=== PATIENT | female | born 1950 | race Caucasian/White ===

== ENCOUNTER 2020-03-08 09:22 | Outpatient (CLI) | payer MEDICARE, OTHER, SELFPAY ==
--- NOTE | ~2020-03-08 | US_ITS ---
EXAMINATION: US thyroid DATE: 03/08/2020 12:29 INDICATION: Nontoxic single thyroid nodule. TECHNIQUE: Multiple ultrasound images of the thyroid were obtained. COMPARISON: Ultrasound 06/22/2019 FINDINGS: The right thyroid lobe measures 4.7 x 1.9 x 1.8 cm. The left thyroid lobe measures 4.4 x 1.9 x 1.7 c m. In the right thyroid lobe, there is a 10 mm solid, hypoechoic, lovem-buet-bprk nodule with lobula josé miguel margin without echogenic foci (TI-RADS TR4) status post benign biopsy on 07/26/2019. In the right thyroid lobe, there is an 8 mm mixed solid and cystic, hypoechoic, zsoym-viju-ndvl nodule with lobul ated margin without echogenic foci (TR4). In the right thyroid lobe, there is a 6 mm mixed cystic and solid, hypoechoic, ntbej-opnw-bxws nodule with lobulated margin with marginal echogenic focus (TR4). There are multiple nodules in the thyroid measuring less than 5 mm. In the right thyroid lobe, there is a 7 mm solid, hypoechoic, fgjio-ufgo-mruy nodule with lobulated margin without echogenic foci (TR 4). IMPRESSION: 1. Small thyroid nodules, likely not clinically significant. No follow-up is needed. Reviewed, dictated and finalized at location A. IMPRESSION: 1. Small thyroid nodules, likely not clinically significant. No follow-up is ne eded.
[2020-03-08 10:33] LABS: Free T4 Free Thyroxine 0.96 ng/dL (0.76-1.46); Thyroid Stimulating Hormone 0.54 uIU/mL (0.36-3.74)
== END 2020-03-08 09:23 | disposition home or self-care (01) ==
LOC: CHSIMG 09:27
PROVIDERS: PCP Internal Medicine; Visit Provider Internal Medicine Endocrinology, Diabetes & Metabolism
DX: E04.1 Nontoxic single thyroid nodule (principal)
CPT/HCPCS: 36415; 76536; 84439; 84443

== ENCOUNTER 2020-04-25 09:52 | Outpatient (CLI) | payer MEDICARE, OTHER, SELFPAY ==
--- NOTE | ~2020-04-25 | US_ITS ---
EXAMINATION: US soft tissue upper back INDICATION: [place] hump TECHNIQUE: Targeted high-resolution ultrasound was performed in the area of clinical concern. COMPARISON: None available FINDINGS: There is no cystic or solid mass in the area of clinical concern. Normal subcutaneous tissu es are identified. IMPRESSION: 1. No specific sonographic correlate is identified for the clinical finding of concern. Further evalu ation at this time should be based on clinical assessment. Continued follow-up physical examination i s recommended. Reviewed, dictated and finalized at location B. IMPRESSION: 1. No specific sonographic correlate is identified for the clinical finding of concern. Further evaluation at this time should be based on clinical assessment . Continued follow-up physical examination is recommended.
== END 2020-04-25 09:53 | disposition home or self-care (01) ==
LOC: CHSIMG 09:54
PROVIDERS: PCP Nurse Practitioner; Visit Provider Nurse Practitioner
DX: E65 Localized adiposity (principal)
CPT/HCPCS: 76604

== ENCOUNTER 2020-05-12 15:41 | Emergency (ER) | payer MEDICARE, OTHER, SELFPAY ==
[2020-05-12 15:41] VITALS: BP 146/87; PULSE 69; RESP 16; TEMP 36.1; O2SAT 97
--- NOTE | 2020-05-12 16:31 | ED.BACK ---
HPI - Back Pain/Injury General Chief Complaint: Back Pain/Injury Stated Complaint: back pain Source: patient Mode of arrival: ambulatory Limitations: no limitations History of Present Illness HPI Narrative: Right scapular pain, onset 3 days ago, mild, worse last night, much worse today; it's hard to get comfortable, having trouble resting. Placing her right hand behind her head decreases the pain. Sometimes, like in the E.D., she finds a comfortable spot and his minimal pain. She saw her chiropracter yesterday who provides some relief. She is taking a muscle relaxant given by the chiropracter. She took 1/2 [place] 7.5 earlier today without relief. She rarely takes [place]. Toradol IM usually helps a lot. She is very familiar with this pain: it has occurred periodically x years. Last occurred about 11 months ago. She has had it injected, seen pain clinic doctor, no etiology identified. She denies pain elsewhere. 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 Related Data Home Medications Medication Instructions Recorded Confirmed cholecalciferol (vitamin D3) 25 25 mcg PO DAILY 03/06/20 05/12/20 mcg (1,000 unit) capsule hydrocodone 5 mg-acetaminophen 300 1 tablet PO BID PRN 03/06/20 05/12/20 mg tablet potassium chloride 10 mEq 10 meq PO DAILY 03/06/20 05/12/20 tablet,extended release Allergies Allergy/AdvReac Type Severity Reaction Status Date / Time ciprofloxacin Allergy Unknown Dyspnea / Verified 12/20/17 07:15 SOB latex Allergy Unknown Verified 10/28/17 13:33 procaine Allergy Unknown Verified 10/28/17 13:32 Review of Systems Cardiovascular: Cardiovascular: Denies chest pain Respiratory: Respiratory: Denies cough and Denies dyspnea Gastrointestinal: Gastrointestinal: Denies abdominal pain, Denies nausea and Denies vomiting Neurologic: Comments: no numbness or weakness in right arm. [facility] Family History Family History (Updated 10/28/17 @ 13:40 by DOCTOR UNKNOWN) Other Cerebrovascular accident Family history of cardiovascular disease Family history of liver disease Family history of thyroid disease Exam Const: General: no acute distress Orientation/consciousness: patient oriented x3 Neck: Neck: normal visual inspection and no lymphadenopathy Other: full ROM nontender Chest: Chest palpation & inspection: normal inspection of the chest Resp: Effort & Inspection: normal respiratory effort Auscultation: clear to auscultation bilaterally Cardio: Rate: regular rate Rhythm: regular rhythm Heart sounds: no murmurs GI: Other: nontender Back/Spine/Pelvis: Thoracic/Lumbar Spine: thoracic and lumbar spine normal to inspection and other Other: Hypertrophy of right upper back muscles. No redness or swelling. Tender along lower medial border of the right scapula. Full shoulder ROM. Right hand behind head decreases pain. Course Vital Signs Vital signs: Vital Signs Temperature 36.1 C L 05/12/20 15:41 Pulse Rate 69 05/12/20 15:41 Respiratory Rate 16 05/12/20 15:41 Blood Pressure 146/87 H 05/12/20 15:41 Pulse Oximetry 97 05/12/20 15:41 Temperature 36.1 C L 05/12/20 15:41 Pulse Rate 69 05/12/20 15:41 Respiratory Rate 15 05/12/20 16:45 Blood Pressure 146/87 H 05/12/20 15:41 Pulse Oximetry 100 05/12/20 16:45 MDM - Back Pain/Injury MDM Narrative Medical decision making narrative: Recurrence of pain, etiology has never been determined. Appears to be soft tissue, possibly overuse injury ( no left arm) and spasm. Will tx. Recommend f/o with PCP. Discharge Plan Discharge Clinical Impression: Acute right-sided thoracic back pain Patient Disposition: Home, Self-Care Condition: Stable Instructions: Antibiotic Form, Back Pain (ED) Additional Instructions: Apply ice and/or heat every 2 hours. Avoid painful activities. See Kianna Wright tomorrow if no improvement. Return if worse Prescriptions: New cyclobenzaprin
[2020-05-12] MEDS: KETOROLAC (*BKC) 60 MG/2 ML VIAL 30 MG IM (16:44)
[2020-05-12 16:45] VITALS: RESP 15; O2SAT 100
== END 2020-05-12 16:48 | disposition home or self-care (01) ==
PROVIDERS: Emergency Provider Family Medicine; PCP Nurse Practitioner
DX: M54.6 Pain in thoracic spine (principal)
CPT/HCPCS: 96372; 99283; J1885

== ENCOUNTER 2020-07-17 07:54 | Outpatient (CLI) | payer MEDICARE, OTHER, SELFPAY ==
--- NOTE | ~2020-07-17 | CT_ITS ---
EXAMINATION:CT chest w con DATE: 07/17/2020 09:00 INDICATION: Lung nodule. Histoplasmosis. TECHNIQUE: Computed tomography (CT) of the chest was performed with 75 mL Omnipaque 350 intravenous c ontrast. Automated exposure control and iterative reconstruction technique were employed. The dose-le ngth product (DLP) was 424.03 mGy-cm. COMPARISON: Chest CT 04/03/2019 FINDINGS: There is mild scarring at the lung apices. There is mild atelectasis bilaterally. There is perihilar bronchiectasis in anterior segment right upper lobe. There is mild atelectasis in the infer ior lungs. Calcified bilateral lung nodules and calcified hilar and mediastinal lymph nodes are consi stent with old granulomatous disease. No pleural effusion. The heart size is normal. There is a small sliding hiatal hernia. There are changes of cholecystectomy. Calcifications in the spleen are consis tent with old granulomatous disease. There is mild thoracic spondylosis. IMPRESSION: 1. Stable mild scarring at the lung apices. 2. Mild bronchiectasis. 3. Small sliding hiatal hernia. Reviewed, dictated and finalized at location A.
--- NOTE | ~2020-07-17 | MR_ITS ---
EXAMINATION: MR lumbar spine wo con DATE: 07/17/2020 09:03 INDICATION: Syrinx of spinal cord. Muscle weakness of lower extremity. Low back pain. TECHNIQUE: Magnetic resonance imaging (MRI) of the lumbar spine was performed without intravenous con trast. Sequences included sagittal T2-weighted FSE, sagittal T2-weighted FS FSE, sagittal T1-weighted FSE, and axial T1-weighted FSE. COMPARISON: Lumbar spine MRI 10/05/2018 FINDINGS: There is 6 degrees levocurvature of lumbar spine. There is 3 mm anterolisthesis of L5 on S1 . There are Schmorl's nodes at most levels. There is severely decreased disc height from L3-L4 throug h L5-S1. The distal spinal cord signal intensity is normal. The conus medullaris is at L1. The follow ing disc levels are specifically discussed: L1-L2: The disc is mildly bulging. There is mild bilateral facet joint osteoarthritis. There is no ne ural foraminal stenosis. There is mild central canal stenosis. L2-L3: The disc is bulging. There is mild bilateral facet joint osteoarthritis. There is mild bilater al neural foraminal stenosis. There is mild central canal stenosis. L3-L4: The disc is bulging and has an annular fissure. There is mild bilateral facet joint osteoarthr itis. There is mild bilateral neural foraminal stenosis. There is mild central canal stenosis. L4-L5: The disc is bulging and has an annular fissure. There is moderate bilateral facet joint osteoa rthritis. There is mild bilateral neural foraminal stenosis. There is mild central canal stenosis. L5-S1: The disc is bulging and has an annular fissure. There is severe bilateral facet joint osteoart hritis. There is mild bilateral neural foraminal stenosis. There is mild central canal stenosis. IMPRESSION: 1. Severe lumbar spondylosis, stable from 10/05/2018. Reviewed, dictated and finalized at location A.
[2020-07-17 08:15] LABS: Estimated Glomerular Filt Rate > 60
== END 2020-07-17 07:55 | disposition home or self-care (01) ==
LOC: CHSIMG 07:58
PROVIDERS: PCP Internal Medicine
DX: Z86.19 Personal history of other infectious and parasitic diseases (principal); G95.0 Syringomyelia and syringobulbia; M62.81 Muscle weakness (generalized)
CPT/HCPCS: 71260; 72148; Q9965

== ENCOUNTER 2020-07-17 09:00 | Emergency (ER) | payer MEDICARE, OTHER, SELFPAY ==
[2020-07-17 09:15] VITALS: BP 154/84; PULSE 65; RESP 20; TEMP 36.9; O2SAT 98
--- NOTE | 2020-07-17 09:29 | ED.GENADULT ---
HPI - General Adult General Chief complaint: Extremity Injury, Upper Stated complaint: BACK PAIN Source: patient Mode of arrival: ambulatory History of Present Illness HPI narrative: Lilo presented to the ED with upper right back pain. It comes and goes and sometimes it gets very bad. Despite taking hydrocodone at home, and OTC muscle relaxant, and seeing her chiropractor the pain has become progressively worse for 3-4 days. No CP, SOB, N/V, syncope/near syncope. No recent trauma or falls. Related Data Home Medications Medication Instructions Recorded Confirmed cholecalciferol (vitamin D3) 25 25 mcg PO DAILY 03/06/20 07/17/20 mcg (1,000 unit) capsule hydrocodone 5 mg-acetaminophen 300 1 tablet PO BID PRN 03/06/20 07/17/20 mg tablet potassium chloride 10 mEq 10 meq PO DAILY 03/06/20 07/17/20 tablet,extended release Allergies Allergy/AdvReac Type Severity Reaction Status Date / Time ciprofloxacin Allergy Unknown Dyspnea / Verified 12/20/17 07:15 SOB latex Allergy Unknown Verified 10/28/17 13:33 procaine Allergy Unknown Verified 10/28/17 13:32 Review of Systems Constitutional: Constitutional: Reports no additional constitutional complaints Eyes: Eyes: Reports no additional eye complaints ENT: Reports system reviewed and no additional complaints, except as documented Cardiovascular: Cardiovascular: Reports no additional cardiovascular complaints Respiratory: Respiratory: Reports no additional respiratory complaints Gastrointestinal: Gastrointestinal: Reports no additional gastrointestinal complaints Genitourinary: Genitourinary: Reports no additional female genitourinary complaints Musculoskeletal: Musculoskeletal: Reports as per HPI Integumentary/Breasts: Skin/Breast: Reports system reviewed and no additional complaints, except as docu Neurologic: Reports system reviewed and no additional complaints, except as documented Psychiatric: Psychiatric: Reports no additional psychiatric complaints Endocrine: Endocrine: Reports no additional endocrine complaints Hematologic/Lymphatic: Hematologic/Lymphatic: Reports no additional hematologic/lymphatic complaints Allergic/Immunologic: Allergic/Immunologic: Reports no additional allergic/immunologic complaints [facility] Family History Family History Other Cerebrovascular accident Family history of cardiovascular disease Family history of liver disease Family history of thyroid disease Exam Const: General: no acute distress and alert Orientation/consciousness: patient oriented x3 Limitations: No altered mental status HENMT: Head: normal to inspection Other: atraumatic Eyes: Pupils: Equal, round and reactive pupils present Neck: Neck: normal visual inspection Resp: Effort & Inspection: normal respiratory effort, no retractions, not tachypneic and no use of accessory muscles Cardio: Rate: regular rate Back/Spine/Pelvis: Other: Upper left back was a little erythematous, swollen, warm and TTP between the scapula and the spine. Skin: General skin exam: normal color Rashes: no rashes Neuro: General: patient oriented x3 and moves all extremities Extrem: General: normal to inspection Psych: Mental Status: mental status grossly normal Course Course Emergency Course: Lilo was evaluated. We ordered toradol and flexeril for pain relief. She was able to get good relief with these. She was discharged with a script for flexeril and instructed to f/u with her PCP. Vital Signs Vital signs: Vital Signs Temperature 98.4 F 07/17/20 09:15 Pulse Rate 65 07/17/20 09:15 Respiratory Rate 20 07/17/20 09:15 Blood Pressure 154/84 H 07/17/20 09:15 Pulse Oximetry 98 07/17/20 09:15 Temperature 98.4 F 07/17/20 09:15 Pulse Rate 65 07/17/20 09:15 Respiratory Rate 20 07/17/20 09:15 Blood Pressure 154/84 H 07/17/20 09:15 Pulse Oximetry 98 07/17/20 09:15
[2020-07-17] MEDS: KETOROLAC (*BKC) 60 MG/2 ML VIAL 30 MG IM (09:42)
== END 2020-07-17 10:06 | disposition home or self-care (01) ==
PROVIDERS: Emergency Provider Family Medicine; PCP Internal Medicine
DX: S29.012A Strain of muscle and tendon of back wall of thorax, initial encounter (principal)
CPT/HCPCS: 71260; 72148; 96372; 99283; J1885; Q9965

== ENCOUNTER 2020-08-08 02:28 | Emergency (ER) | payer MEDICARE, OTHER, SELFPAY ==
[2020-08-08 02:33] VITALS: BP 120/88; PULSE 70; RESP 16; TEMP 36.6; O2SAT 98
[2020-08-08] MEDS: KETOROLAC (*BKC) 60 MG/2 ML VIAL IM (02:52)
[2020-08-08] MEDS: BACLOFEN 10 MG TABLET 20 MG PO (02:52)
--- NOTE | 2020-08-08 02:59 | ED.GENADULT ---
HPI - General Adult General Chief complaint: Unspecified Stated complaint: back pain Time Seen by Provider: 08/08/20 02:40 Source: patient Mode of arrival: ambulatory Limitations: no limitations History of Present Illness HPI narrative: Pain in right paraspinal muscles in thoracic spine and spasms. This has caused fairly severe pain that has been ongoing for the past few hours. It woke her up at midnight tonight in pain, sharp, stabbing related to spasms. This was not releived by measures taken at home. Related Data Home Medications Medication Instructions Recorded Confirmed cholecalciferol (vitamin D3) 25 25 mcg PO DAILY 03/06/20 08/08/20 mcg (1,000 unit) capsule hydrocodone 5 mg-acetaminophen 300 1 tablet PO BID PRN 03/06/20 08/08/20 mg tablet potassium chloride 10 mEq 10 meq PO DAILY 03/06/20 08/08/20 tablet,extended release Allergies Allergy/AdvReac Type Severity Reaction Status Date / Time ciprofloxacin Allergy Unknown Dyspnea / Verified 12/20/17 07:15 SOB latex Allergy Unknown Verified 10/28/17 13:33 procaine Allergy Unknown Verified 10/28/17 13:32 Review of Systems Constitutional: Constitutional: Reports no additional constitutional complaints Eyes: Eyes: Reports no additional eye complaints ENT: Reports system reviewed and no additional complaints, except as documented Cardiovascular: Cardiovascular: Reports no additional cardiovascular complaints Respiratory: Respiratory: Reports no additional respiratory complaints Gastrointestinal: Gastrointestinal: Reports no additional gastrointestinal complaints Genitourinary: Genitourinary: Reports no additional female genitourinary complaints Musculoskeletal: Musculoskeletal: Reports no additional musculoskeletal complaints Integumentary/Breasts: Skin/Breast: Reports system reviewed and no additional complaints, except as docu Neurologic: Reports system reviewed and no additional complaints, except as documented Psychiatric: Psychiatric: Reports no additional psychiatric complaints Endocrine: Endocrine: Reports no additional endocrine complaints Hematologic/Lymphatic: Hematologic/Lymphatic: Reports no additional hematologic/lymphatic complaints Allergic/Immunologic: Allergic/Immunologic: Reports no additional allergic/immunologic complaints PMFSH Family History Family History Other Cerebrovascular accident Family history of cardiovascular disease Family history of liver disease Family history of thyroid disease Exam Const: General: cooperative, in distress and anxious Nutritional Appearance: well nourished Orientation/consciousness: oriented to person Limitations: no limitations HENMT: Head: normal to inspection Ears: other (hearing grossly normal) General nose exam: Normal external nose present Face and sinus: normal facial exam Mouth: Yes Normal oral and palatal mucosa present Eyes: General: appearance normal, both eyes and all related structures Alignment and Position: alignment normal Conjunctivae: conjunctivae normal Neck: Neck: normal visual inspection Chest: Chest palpation & inspection: normal inspection of the chest Resp: Effort & Inspection: normal respiratory effort, able to speak in complete sentences and symmetric chest movement Auscultation: clear to auscultation bilaterally Cardio: Rate: regular rate Rhythm: regular rhythm Heart sounds: S1 normal heart sound present and S2 normal heart sound present GI: GI Palp: Yes Soft to palpation Auscultation: normal bowel sounds Back/Spine/Pelvis: Thoracic/Lumbar Spine: thoracic and lumbar spine normal to inspection Skin: General skin exam: normal color Trauma: no lacerations or abrasions Neuro: General: oriented to person, oriented to place and oriented to time Cranial nerves: Yes Other cranial nerve findings present (no focal weakness) Cognition (Neuro): normal cognition Speech: normal speech Extr
[2020-08-08 03:05] VITALS: BP 120/78; PULSE 72; RESP 18; TEMP 36.2; O2SAT 97
== END 2020-08-08 03:06 | disposition home or self-care (01) ==
PROVIDERS: Emergency Provider Emergency Medicine; PCP Internal Medicine
DX: M54.6 Pain in thoracic spine (principal)
CPT/HCPCS: 96372; 99283; A9270; J1885

== ENCOUNTER 2020-10-19 14:50 | Emergency (ER) | payer MEDICARE, SELFPAY ==
--- NOTE | ~2020-10-19 | CT_ITS ---
EXAMINATION: CT abdomen pelvis wo con EXAM DATE: 10/19/2020 16:17 INDICATION: Kidney stone. Left flank pain. TECHNIQUE: Spiral CT of the abdomen and pelvis was performed without contrast. Axial, coronal and sag ittal images were reviewed. The dose-length product (DLP) for this examination was 1155.01 mGy-cm. The exposure was tailored according to patient size (auto mA exposure control), and iterative reconst ruction (ASIR) was used as additional dose reduction technique. Comparison is made to prior examinati on from 01/26/2019. FINDINGS: There is a punctate kidney stone within each kidney. No ureteral stones or hydronephrosis. Fibroid uterus. The bladder is unremarkable. The liver, spleen, adrenal glands and pancreas are un remarkable. There are cholecystectomy clips. There is no retroperitoneal or pelvic lymphadenopathy. There is mild scattered arteriosclerotic disease. Small bilateral inguinal fat-containing hernias. The appendix is normal. The stomach and small bowel are unremarkable. There is expected amount of c olonic stool. No free intraperitoneal gas. The heart is normal in size. There are no pericardial or pleural effusions. The lung bases are unremarkable. There are no osteoblastic or osteolytic les ions identified. IMPRESSION: 1. Punctate bilateral nephrolithiasis. No hydronephrosis or acute findings. 2. Small bilateral inguinal hernias. Reviewed, dictated and finalized at location A. NDSMAN
[2020-10-19 15:15] VITALS: BP 163/99; PULSE 69; RESP 20; TEMP 36.3; O2SAT 98
[2020-10-19 15:37] LABS: Add Urine Microscopic? NO; Appearance Urine Clear (Clear); Bilirubin Urine Negative (Negative); Blood Urine Negative (Negative); Color Urine Yellow (Yellow); Glucose Urine UA Negative (Negative); Ketones Urine Negative (Negative); Leukocyte Esterase Ur Negative (Negative); Nitrate Urine Negative (Negative); Protein Urine Negative (Negative); Specific Grav Ur <= 1.005 (1.010-1.020); Urobilinogen Urine 0.2 mg/dL (0.2-1.0)
[2020-10-19] MEDS: KETOROLAC (*BKC) 60 MG/2 ML VIAL IM (16:00)
[2020-10-19] MEDS: ONDANSETRON HCL ODT 4 MG TABLET PO (16:00)
[2020-10-19 16:03] LABS: Basophils Absolute Auto 0.06 K/mm3 (0.00-0.10); Basophils Percent Auto 0.6 % (0.0-1.0); Eosinophils Absolute Auto 0.49 K/mm3 (0.02-0.50); Hematocrit 38.4 % (35.0-42.0); Immature Granulocyte Absolute 0.01 K/mm3 (0.00-0.00); Immature Granulocyte Percent A 0.1 % (0.0-0.0); Lymphocytes Absolute Auto 3.11 K/mm3 (1.10-4.50); Lymphocytes Percent Auto 31.8 % (18.0-42.0); Mean Corpuscular HGB Conc 33.9 g/dL (32.0-36.0); Mean Corpuscular Hemoglobin 30.7 pg (27.0-31.0); Mean Corpuscular Volume 90.6 fL (78.0-102.0); Mean Platelet Volume 10.2 fl (9.2-11.8); Monocytes Absolute Auto 0.71 K/mm3 (0.10-0.90); Monocytes Percent Auto 7.3 % (2.0-11.0); Neutrophils Absolute Auto 5.4 K/mm3 (1.7-7.2); Neutrophils Percent Auto 55.2 % (50.0-70.0); Platelet Count Result 394 K/mm3 (150-420); Red Blood Count 4.24 M/mm3 (4.20-5.40); Red Cell Distribution Width 12.5 % (11.6-14.4); White Blood Count 9.8 K/mm3 (4.8-10.8)
[2020-10-19 16:17] LABS: Alanine Aminotransferase 15 U/L (14-59); Albumin Level 3.6 g/dL (3.4-5.0); Alkaline Phosphatase 77 U/L (46-116); Anion Gap 12 mmol/L (8-16); Aspartate Amino Transferase 15 U/L (15-37); Bilirubin,Total 0.4 mg/dL (0.00-1.00); Blood Urea Nitrogen 8 mg/dL (7-18); Calcium 8.6 mg/dL (8.5-10.1); Carbon Dioxide 27 mmol/L (21-32); Chloride 103 mmol/L (98-108); Estimated CRCL calculation 54 ml/min; Estimated Glomerular Filt Rate > 60; Glucose 97 mg/dL (70-99); Osmolality Calculated 292 mOsm/kg (285-295); Potassium 3.3 mmol/L (3.5-5.1); Sodium 142 mmol/L (136-145); Total Protein 7.3 g/dL (6.4-8.2)
--- NOTE | 2020-10-19 16:52 | ED.ABDPAIN ---
HPI - Abdominal Pain General Chief Complaint: Urogenital-Female Stated Complaint: left lower back pain Time Seen by Provider: 10/19/20 15:15 Source: patient Limitations: no limitations History of Present Illness HPI narrative: Patient comes in with left flank pain. Pain is moderately severe, sharp, and has been ongoing since last pm in left flank. Duration has been ongoing, not made better or worse by activity, but she is tender to touch over this area. Pain Consistency: constant Location: L flank Severity: moderate Quality: stabbing Radiation: none Migration to: no migration Exacerbating factors: other (touch) Relieving factors: nothing Associated symptoms: nausea (mild) Related Data Home Medications Medication Instructions Recorded Confirmed cholecalciferol (vitamin D3) 25 25 mcg PO DAILY 03/06/20 10/19/20 mcg (1,000 unit) capsule hydrocodone 5 mg-acetaminophen 300 1 tablet PO BID PRN 03/06/20 10/19/20 mg tablet potassium chloride 10 mEq 300 meq PO TID 03/06/20 10/19/20 tablet,extended release carica papaya [Papaya Enzyme] 1 tablet PO DAILY 10/19/20 10/19/20 Allergies Allergy/AdvReac Type Severity Reaction Status Date / Time ciprofloxacin Allergy Unknown Dyspnea / Verified 12/20/17 07:15 SOB latex Allergy Unknown Verified 10/28/17 13:33 procaine Allergy Unknown Verified 10/28/17 13:32 Review of Systems Constitutional: Constitutional: Reports no additional constitutional complaints Eyes: Eyes: Reports no additional eye complaints ENT: Reports system reviewed and no additional complaints, except as documented Cardiovascular: Cardiovascular: Reports no additional cardiovascular complaints Respiratory: Respiratory: Reports no additional respiratory complaints Gastrointestinal: Gastrointestinal: Reports no additional gastrointestinal complaints Genitourinary: Genitourinary: Reports no additional female genitourinary complaints Musculoskeletal: Musculoskeletal: Reports no additional musculoskeletal complaints Integumentary/Breasts: Skin/Breast: Reports system reviewed and no additional complaints, except as docu Neurologic: Reports system reviewed and no additional complaints, except as documented Psychiatric: Psychiatric: Reports no additional psychiatric complaints Endocrine: Endocrine: Reports no additional endocrine complaints Hematologic/Lymphatic: Hematologic/Lymphatic: Reports no additional hematologic/lymphatic complaints Allergic/Immunologic: Allergic/Immunologic: Reports no additional allergic/immunologic complaints [facility] Past Medical History Medical History (Updated 10/19/20 @ 17:33 by Vitor Otoole MD) Renal calculi Surgical History Surgical History (Updated 10/19/20 @ 17:34 by Vitor Otoole MD) No significant past surgical history Family History Family History Other Cerebrovascular accident Family history of cardiovascular disease Family history of liver disease Family history of thyroid disease Social History Social History Gender identity (if verbalized by the patient): Female Exam Const: General: no acute distress Orientation/consciousness: patient oriented x3 Limitations: no limitations and altered mental status HENMT: Head: normal to inspection Ears: external ears normal and TM's normal bilaterally General nose exam: Normal external nose present Face and sinus: normal facial exam Throat: posterior oropharynx normal Eyes: Conjunctivae: conjunctivae normal Neck: Neck: normal visual inspection Chest: Chest palpation & inspection: normal inspection of the chest Resp: Effort & Inspection: normal respiratory effort Auscultation: clear to auscultation bilaterally Cardio: Rate: regular rate Rhythm: regular rhythm GI: GI Palp: Yes Soft to palpation (nontender) : Other: She appears to have mild tenderness over area of left flank / low p
[2020-10-19 17:00] VITALS: PULSE 72; RESP 20; O2SAT 98
== END 2020-10-19 17:10 | disposition home or self-care (01) ==
PROVIDERS: Emergency Provider Emergency Medicine; PCP Internal Medicine
DX: R10.9 Unspecified abdominal pain (principal)
CPT/HCPCS: 36415; 74176; 80053; 81003; 85025; 96372; 99283; 99284; A9270; J1885

== ENCOUNTER 2020-11-14 12:32 | Outpatient (CLI) | payer MEDICARE, SELFPAY ==
--- NOTE | ~2020-11-14 | US_ITS ---
EXAMINATION: US thyroid EXAM DATE: 11/14/2020 13:21 INDICATION: E04.1 - Nontoxic single thyroid nodule. Previous right thyroid nodule biopsy. TECHNIQUE: Multiple grayscale and Doppler images of the thyroid were obtained (by a technologist who performed the scan) and subsequently reviewed. Individual nodules and recommendations may be reporte d in accordance with TI-RADS system as designated by the 2017 ACR White Paper TI-RADS committee. Comp arison is made to prior examination from 03/08/2020, 06/22/2019. FINDINGS: The right thyroid lobe measures 4.5 x 1.4 x 1.9 cm, the left measuring 4.3 x 1.9 x 1.5 cm. There are scattered subcentimeter thyroid nodules unchanged, not likely clinically significant, the largest in the right thyroid lobe was previously biopsied. Otherwise, relatively homogeneous thyroid echogenicit y. No regional lymphadenopathy suspected. IMPRESSION: Small thyroid nodules unchanged, not likely clinically significant. Reviewed, dictated and finalized at location A. [employer]
== END 2020-11-14 12:33 | disposition home or self-care (01) ==
LOC: CHSIMG 12:33
PROVIDERS: PCP Internal Medicine; Visit Provider Internal Medicine Endocrinology, Diabetes & Metabolism
DX: E04.1 Nontoxic single thyroid nodule (principal)
CPT/HCPCS: 76536

== ENCOUNTER 2020-12-07 06:43 | Emergency (ER) | payer MEDICARE, SELFPAY ==
[2020-12-07 06:50] VITALS: BP 173/92; PULSE 68; RESP 18; TEMP 35.7; O2SAT 99
--- NOTE | 2020-12-07 07:11 | ED.BACK ---
HPI - Back Pain/Injury General Chief Complaint: Back Pain/Injury Stated Complaint: L shoulder blade pain Time Seen by Provider: 12/07/20 07:11 Source: patient Mode of arrival: ambulatory Limitations: no limitations History of Present Illness HPI Narrative: 70-year-old woman comes in today complaining of right side of back pain at and below her right shoulder blade. Patient states that she has pain here quite often ( 3-4 times a year) and medications that she takes at home (hydrocodone and anti-inflammatories) do not seem to help. She denies any injury. MD elicited complaint: back pain Pertinent past history: prior back pain Onset (ago): week(s) (1) Timing: constant Severity: severe Similar Symptoms Previously: Yes Location: right upper back Radiation: none Exacerbating factors: other ( Palpation) Relieving factors: none Associated symptoms: denies other symptoms Treatments prior to arrival: NSAIDS and prescription analgesics Related Data Home Medications Medication Instructions Recorded Confirmed cholecalciferol (vitamin D3) 25 25 mcg PO DAILY 03/06/20 12/07/20 mcg (1,000 unit) capsule hydrocodone 5 mg-acetaminophen 300 1 tablet PO BID PRN 03/06/20 12/07/20 mg tablet potassium chloride 10 mEq 300 meq PO TID 03/06/20 12/07/20 tablet,extended release carica papaya [Papaya Enzyme] 1 tablet PO DAILY 10/19/20 12/07/20 Allergies Allergy/AdvReac Type Severity Reaction Status Date / Time ciprofloxacin Allergy Unknown Dyspnea / Verified 12/20/17 07:15 SOB latex Allergy Unknown Verified 10/28/17 13:33 procaine Allergy Unknown Verified 10/28/17 13:32 Review of Systems Constitutional: Constitutional: Denies chills and Denies fever(s) Cardiovascular: Cardiovascular: Denies chest pain and Denies radiating jaw, neck or arm pain Respiratory: Respiratory: Denies cough and Denies dyspnea Musculoskeletal: Musculoskeletal: Reports as per HPI Integumentary/Breasts: Skin/Breast: Denies pruritus, Denies erythema and Denies rash Neurologic: Denies vertigo, Denies dizziness and Denies syncope Hematologic/Lymphatic: Hematologic/Lymphatic: Denies easy bleeding and Denies easy bruising PMFSH Past Medical History Medical History Renal calculi Surgical History Surgical History No significant past surgical history Family History Family History Other Cerebrovascular accident Family history of cardiovascular disease Family history of liver disease Family history of thyroid disease Social History Social History Gender identity (if verbalized by the patient): Female Exam Const: General: healthy appearing and alert Orientation/consciousness: patient oriented x3 Limitations: no limitations Other: Moderate to severe acute distress. Resp: Effort & Inspection: normal respiratory effort and not labored Auscultation: clear to auscultation bilaterally, no rales, no rhonchi and no wheezes Cardio: Rate: regular rate Rhythm: regular rhythm Heart sounds: no murmurs Skin: General skin exam: normal color, no jaundice and no pallor Rashes: no rashes Neuro: General: patient oriented x3, moves all extremities and no focal motor deficits Speech: normal speech Extrem: General: normal to inspection and no clubbing, cyanosis or edema Psych: Appearance: grossly normal and well kempt Mental Status: mental status grossly normal Affect: Anxious affect present Attitude: cooperative Thought content: Yes Normal thought content present Course Vital Signs Vital signs: Vital Signs Temperature 35.7 C L 12/07/20 06:50 Pulse Rate 68 12/07/20 06:50 Respiratory Rate 18 12/07/20 06:50 Blood Pressure 173/92 H 12/07/20 06:50 Pulse Oximetry 99 12/07/20 06:50 Temperature 35.7 C L 12/07
[2020-12-07] MEDS: KETOROLAC (*BKC) 60 MG/2 ML VIAL IM (07:24)
== END 2020-12-07 07:40 | disposition home or self-care (01) ==
PROVIDERS: Emergency Provider Emergency Medicine; PCP Internal Medicine
DX: M54.9 Dorsalgia, unspecified (principal)
CPT/HCPCS: 96372; 99282; 99283; J1885

== ENCOUNTER 2021-01-30 07:48 | Emergency (ER) | payer MEDICARE, SELFPAY ==
[2021-01-30 08:05] VITALS: BP 146/88; PULSE 67; RESP 18; TEMP 36.4; O2SAT 97
--- NOTE | 2021-01-30 08:08 | ED.BACK ---
HPI - Back Pain/Injury General Stated Complaint: back pain Source: patient Mode of arrival: ambulatory Limitations: no limitations History of Present Illness HPI Narrative: this is a 70-year-old female that has chronic upper back pain and takes medication at home, but has been having increasing right to be low scapular musculoskeletal pain that is worsened with movement and palpation with no known injury no fever chills no shortness of breath no chest pain no nausea vomiting or abdominal pain. MD elicited complaint: back pain Pertinent past history: prior back pain Onset (ago): day(s) Timing: constant Severity: moderate Pain scale (0-10): 8 Similar Symptoms Previously: Yes Quality: dull Location: thoracic spine ( right scapular) Radiation: none Exacerbating factors: movement Relieving factors: immobilization Related Data Home Medications Medication Instructions Recorded Confirmed cholecalciferol (vitamin D3) 25 25 mcg PO DAILY 03/06/20 12/07/20 mcg (1,000 unit) capsule hydrocodone 5 mg-acetaminophen 300 1 tablet PO BID PRN 03/06/20 12/07/20 mg tablet potassium chloride 10 mEq 300 meq PO TID 03/06/20 12/07/20 tablet,extended release carica papaya [Papaya Enzyme] 1 tablet PO DAILY 10/19/20 12/07/20 Allergies Allergy/AdvReac Type Severity Reaction Status Date / Time ciprofloxacin Allergy Unknown Dyspnea / Verified 12/20/17 07:15 SOB latex Allergy Unknown Verified 10/28/17 13:33 procaine Allergy Unknown Verified 10/28/17 13:32 Review of Systems Review of Systems: All systems reviewed & are unremarkable except as noted in HPI and below PMFSH Past Medical History Medical History Renal calculi Surgical History Surgical History No significant past surgical history Family History Family History Other Cerebrovascular accident Family history of cardiovascular disease Family history of liver disease Family history of thyroid disease Social History Social History Gender identity (if verbalized by the patient): Female Exam Const: General: no acute distress Orientation/consciousness: patient oriented x3 HENMT: Head: normal to inspection and contusion Eyes: Conjunctivae: conjunctivae normal Pupils: Equal, round and reactive pupils present Neck: Neck: normal visual inspection, no lymphadenopathy and no meningeal signs Chest: Chest palpation & inspection: normal inspection of the chest Resp: Effort & Inspection: normal respiratory effort Auscultation: clear to auscultation bilaterally Cardio: Rate: regular rate Rhythm: regular rhythm GI: GI Palp: Yes Soft to palpation Percussion: Yes normal to percussion : General: Yes no CVA tenderness Urinary Catheter: Urinary Catheter: patent and draining Skin: General skin exam: normal color Rashes: no rashes Neuro: General: patient oriented x3, moves all extremities, no meningeal signs and no focal motor deficits Extrem: General: normal to inspection Other: Congenital left hand and right scapular pain with some palpation with no known injury Psych: Mental Status: mental status grossly normal Affect: normal affect Attitude: cooperative Course Course Emergency Course: patient with chronic right upper back pain has follow-up with with her primary care physician gave her injection of Toradol which seems to have improved her pain level. Critical Care Time Critical Care Time Critical Care Time: No Discharge Plan Discharge Clinical Impression: Back pain Qualifiers: Back pain location: thoracic back pain Chronicity: acute Back pain laterality: right Qualified Code(s): M54.6 - Pain in thoracic spine Patient Disposition: Home, Self-Care Condition: Stable Instructions: Antibiotic Form, Thoracic Back
[2021-01-30] MEDS: KETOROLAC (*BKC) 60 MG/2 ML VIAL IM (08:20)
[2021-01-30 08:50] VITALS: PULSE 16
== END 2021-01-30 08:50 | disposition home or self-care (01) ==
PROVIDERS: Emergency Provider Emergency Medicine; PCP Internal Medicine
DX: M54.6 Pain in thoracic spine (principal)
CPT/HCPCS: 96372; 99283; J1885

== ENCOUNTER 2021-03-11 14:03 | Outpatient (CLI) | payer MEDICARE, SELFPAY ==
--- NOTE | ~2021-03-11 | DEXA_ITS ---
Bone Density Report Name: Lilo Luciano Age: 70 Sex: Female Ethnicity: White Date of : 1950 Indication: postmenopausal; height loss; Referring Provider: Kacey Vela Study: Bone densitometry was performed. Exam Date: March 11, 2021 Accession number: [id number] Bone Density: Region BMD T-score Z-score Classification AP Spine (L1-L4) 0.916 -1.2 1.1 Osteopenia Femoral Neck (Left) 0.616 -2.1 -0.2 Osteopenia Total Hip (Left) 0.882 -0.5 1.2 Normal Total Hip Bilateral Avg 0.894 -0.4 1.3 Normal Femoral Neck (Right) 0.765 -0.8 1.2 Normal Total Hip (Right) 0.905 -0.3 1.3 Normal World Health Organization criteria for BMD impression classify patients as: Normal (T-score at or above -1.0), Osteopenia (T-score between -1.0 and -2.5), or Osteoporosis (T-score at or below -2.5). 10-year Fracture Risk(1): Major Osteoporotic Fracture 12% Hip Fracture 2.7% Reported Risk Factors: [place] (), Neck BMD=0.616, BMI=31.1 (1) FRAX(R) Version 3.08. Fracture probability calculated for an untreated patient. Fracture probability may be lower if the patient has received treatment. Clinical Information Provided by Patient: Has used the following medications: Vitamin D Patient maximum height was 66 Menopause Age: 43 No regular weight bearing exercise Does not regularly consume dairy products Drinks caffeinated beverages Onset of menses at age 9 Number of children 3 Impression: The patient has low bone mass, based on the Left Femoral Neck T-score. The patient has an estimated ten-year risk of hip fracture of 2.7% and an estimated ten-year risk of major fracture of 12%, based on the WHO FRAX algorithm. Discussion: BONE DENSITY IS LOW AT ONE OR MORE SKELETAL SITES. This patient's lowest T-score is low at one or more skeletal sites. It meets the World Health Organization's (WHO) criteria for ?low bone mass? (T-score between -1.0 and -2.5). The patient's 10-year risk of fracture as calculated by FRAX is less than the threshold where pharmacological therapy is recommended by the National Osteoporosis Foundation (NOF). However, all treatment decisions require clinical judgment and consideration of individual patient factors, including patient preferences, comorbidities, previous drug use, risk factors not captured in the FRAX model (e.g., frailty, falls, vitamin D deficiency, increased bone turnover, interval significant decline in bone density) and possible under or overestimation of fracture risk by FRAX. The patient should follow a healthful lifestyle (good nutrition with adequate calcium and vitamin D, and appropriate weight-bearing exercise). Follow-Up: Consider repeating this study in 2 to 3 years to reassess this patient's status, or sooner if there is some new clinical indication. Reported by: [facility] on
== END 2021-03-11 14:04 | disposition home or self-care (01) ==
LOC: ANHIMG 14:05
PROVIDERS: PCP Internal Medicine; Visit Provider Internal Medicine Endocrinology, Diabetes & Metabolism
DX: Z78.0 Asymptomatic menopausal state (principal); M85.88 Other specified disorders of bone density and structure, other site; M85.851 Other specified disorders of bone density and structure, right thigh; M85.852 Other specified disorders of bone density and structure, left thigh
CPT/HCPCS: 77080

== ENCOUNTER 2021-03-12 09:14 | Outpatient (CLI) | payer MEDICARE, SELFPAY ==
[2021-03-12 10:10] LABS: Thyroid Stimulating Hormone 0.79 uIU/mL (0.36-3.74)
[2021-03-15 04:28] LABS: Thyroid Peroxidase Antibodies <1 IU/mL (<9)
[2021-03-16 08:55] LABS: Total Triiodothyronine (T3) 168.5 ng/dL (76-181)
[2021-03-18 14:49] LABS: Thyroid Stimulating Immunoglob <89 % baseline (<140)
== END 2021-03-12 09:15 | disposition home or self-care (01) ==
LOC: CHSLAB 09:16
PROVIDERS: PCP Internal Medicine; Visit Provider Internal Medicine Endocrinology, Diabetes & Metabolism
DX: R73.03 Prediabetes (principal); R79.89 Other specified abnormal findings of blood chemistry; E04.1 Nontoxic single thyroid nodule
CPT/HCPCS: 36415; 84439; 84443; 84445; 84480; 86376

== ENCOUNTER 2021-05-14 18:26 | Emergency (ER) | payer MEDICARE, SELFPAY ==
--- NOTE | 2021-05-14 19:04 | ED.GENADULT ---
HPI - General Adult General Chief complaint: Back Pain/Injury Stated complaint: back pain Source: patient Mode of arrival: ambulatory Limitations: no limitations History of Present Illness HPI narrative: Lilo is a 70F with a PMH of prediabetes, lumbar spondylosis, chronic upper back pain and kidney stones that presented to the emergency department with right upper back pain. It is the same pain that she usually gets. It started 3 days ago and has become worse. She has tried OTC analgesics and hydrocodone with little relief. Toradol has helped in the past. No new trauma. She denies any other symptoms. Related Data Home Medications Medication Instructions Recorded Confirmed cholecalciferol (vitamin D3) 25 25 mcg PO DAILY 03/06/20 12/07/20 mcg (1,000 unit) capsule hydrocodone 5 mg-acetaminophen 300 1 tablet PO BID PRN 03/06/20 12/07/20 mg tablet potassium chloride 10 mEq 300 meq PO TID 03/06/20 12/07/20 tablet,extended release carica papaya [Papaya Enzyme] 1 tablet PO DAILY 10/19/20 12/07/20 Allergies Allergy/AdvReac Type Severity Reaction Status Date / Time ciprofloxacin Allergy Unknown Dyspnea / Verified 12/20/17 07:15 SOB latex Allergy Unknown Verified 10/28/17 13:33 procaine Allergy Unknown Verified 10/28/17 13:32 Review of Systems Constitutional: Constitutional: Reports no additional constitutional complaints Eyes: Eyes: Reports no additional eye complaints ENT: Reports system reviewed and no additional complaints, except as documented Cardiovascular: Cardiovascular: Reports no additional cardiovascular complaints Respiratory: Respiratory: Reports no additional respiratory complaints Gastrointestinal: Gastrointestinal: Reports no additional gastrointestinal complaints Genitourinary: Genitourinary: Reports no additional female genitourinary complaints Musculoskeletal: Musculoskeletal: Reports as per HPI Integumentary/Breasts: Skin/Breast: Reports system reviewed and no additional complaints, except as docu Neurologic: Reports system reviewed and no additional complaints, except as documented Psychiatric: Psychiatric: Reports no additional psychiatric complaints Endocrine: Endocrine: Reports no additional endocrine complaints Hematologic/Lymphatic: Hematologic/Lymphatic: Reports no additional hematologic/lymphatic complaints Allergic/Immunologic: Allergic/Immunologic: Reports no additional allergic/immunologic complaints [facility] Past Medical History Medical History Renal calculi Surgical History Surgical History No significant past surgical history Family History Family History Other Cerebrovascular accident Family history of cardiovascular disease Family history of liver disease Family history of thyroid disease Social History Social History Gender identity (if verbalized by the patient): Female Exam Const: General: no acute distress and alert Orientation/consciousness: patient oriented x3 Limitations: No altered mental status HENMT: Head: normal to inspection Mouth: Yes Normal oral and palatal mucosa present Eyes: Conjunctivae: conjunctivae normal Pupils: Equal, round and reactive pupils present Neck: Neck: normal visual inspection Chest: Chest palpation & inspection: normal inspection of the chest Resp: Effort & Inspection: normal respiratory effort, not labored and not tachypneic Cardio: Rate: regular rate Back/Spine/Pelvis: Other: TTP in her upper right back and hypertonic paraspinal musculature in the right upper thoracic region Skin: General skin exam: normal color Rashes: no rashes Neuro: General: patient oriented x3, moves all extremities, no focal motor deficits and CN's II-XI intact bilaterally Extrem: General: normal t
[2021-05-14] MEDS: KETOROLAC 30 MG/ML VIAL (*BKC) IM (19:15)
[2021-05-14 19:24] VITALS: BP 172/100; PULSE 68; RESP 20; TEMP 36.4; O2SAT 97
[2021-05-14 19:50] VITALS: BP 132/97; PULSE 62; RESP 20; TEMP 36.6; O2SAT 98
== END 2021-05-14 19:50 | disposition home or self-care (01) ==
PROVIDERS: Emergency Provider Family Medicine; PCP Internal Medicine
DX: M54.6 Pain in thoracic spine (principal)
CPT/HCPCS: 96372; 99283; J1885

== ENCOUNTER 2021-05-17 11:00 | Emergency (ER) | payer MEDICARE, SELFPAY ==
[2021-05-17 11:16] VITALS: BP 159/100; PULSE 71; RESP 18; TEMP 36.6; O2SAT 97
--- NOTE | 2021-05-17 11:26 | ED.BACK ---
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 MD elicited complaint: back pain Pertinent past history: prior back pain Onset (ago): day(s) Timing: constant Severity: moderate Pain scale (0-10): 8 Similar Symptoms Previously: Yes Quality: sharp Location: thoracic spine Radiation: none Exacerbating factors: movement Relieving factors: immobilization Related Data Home Medications Medication Instructions Recorded Confirmed cholecalciferol (vitamin D3) 25 25 mcg PO DAILY 03/06/20 05/17/21 mcg (1,000 unit) capsule hydrocodone 5 mg-acetaminophen 300 1 tablet PO BID PRN 03/06/20 05/17/21 mg tablet potassium chloride 10 mEq 300 meq PO TID 03/06/20 05/17/21 tablet,extended release carica papaya [Papaya Enzyme] 1 tablet PO DAILY 10/19/20 05/17/21 Allergies Allergy/AdvReac Type Severity Reaction Status Date / Time ciprofloxacin Allergy Unknown Dyspnea / Verified 12/20/17 07:15 SOB latex Allergy Unknown Verified 10/28/17 13:33 procaine Allergy Unknown Verified 10/28/17 13:32 Review of Systems Review of Systems: All systems reviewed & are unremarkable except as noted in HPI and below PMFSH Past Medical History Medical History Renal calculi Surgical History Surgical History No significant past surgical history Family History Family History Other Cerebrovascular accident Family history of cardiovascular disease Family history of liver disease Family history of thyroid disease Social History Social History Gender identity (if verbalized by the patient): Female Exam Const: General: no acute distress and alert Orientation/consciousness: patient oriented x3 HENMT: Head: normal to inspection Eyes: Conjunctivae: conjunctivae normal Pupils: Equal, round and reactive pupils present Neck: Neck: normal visual inspection Chest: Chest palpation & inspection: normal inspection of the chest Resp: Effort & Inspection: normal respiratory effort Auscultation: clear to auscultation bilaterally Cardio: Rate: regular rate Rhythm: regular rhythm GI: Inspection: distended GI Palp: Yes Soft to palpation : General: Yes no CVA tenderness Back/Spine/Pelvis: Back: no CVA tenderness Other: Back pain with palpation midthoracic region Skin: General skin exam: normal color Rashes: no rashes Neuro: General: patient oriented x3 and moves all extremities Extrem: General: normal to inspection Psych: Mental Status: mental status grossly normal Course Course Emergency Course: patient evaluated has no known injuries has chronic midthoracic back pain and will offer patient 60 mg IM Toradol. Vital Signs Vital signs: Vital Signs Temperature 36.6 C 05/17/21 11:16 Pulse Rate 71 05/17/21 11:16 Respiratory Rate 18 05/17/21 11:16 Blood Pressure 159/100 H 05/17/21 11:16 Pulse Oximetry 97 05/17/21 11:16 Temperature 36.6 C 05/17/21 11:16 Pulse Rate 71 05/17/21 11:16 Respiratory Rate 18 05/17/21 11:16 Blood Pressure 159/100 H 05/17/21 11:16 Pulse Oximetry 97 05/17/21 11:16 Critical Care Time Critical Care Time Critical Care Time: No Discharge Plan Discharge Clinical Impression: Back pain Qualifiers: Back pain
[2021-05-17] MEDS: KETOROLAC (*BKC) 60 MG/2 ML VIAL IM (11:35)
== END 2021-05-17 12:00 | disposition home or self-care (01) ==
PROVIDERS: Emergency Provider Emergency Medicine; PCP Internal Medicine
DX: M54.6 Pain in thoracic spine (principal)
CPT/HCPCS: 96372; 99283; J1885

== ENCOUNTER 2021-05-25 05:05 | Emergency (ER) | payer MEDICARE, SELFPAY ==
--- NOTE | ~2021-05-25 | CT_ITS ---
EXAMINATION: CT lumbar spine wo con DATE: 05/25/2021 05:50 INDICATION: 3 hours of low back pain TECHNIQUE: Computed tomography (CT) of the lumbar spine was performed without intravenous contrast. A utomated exposure control and iterative reconstruction technique were employed. The dose-length produ ct was 1091.36 mGy-cm. COMPARISON: Lumbar spine MR dated 07/17/2020 FINDINGS: Alignment is normal. Vertebral body heights are normal. No fracture or pars interarticularis defects. Severe disc height loss at L3-L4 and L4-L5. Moderate disc height loss at T9-T10, T10-T11 and L5-S1. Mild disc height loss at T11-T12, L1-L2 and L2-L3. T11-T12 disc space is relatively preserved with in ternal disc calcification. Cholecystectomy clips at the gallbladder fossa. Small hiatal hernia. Calci fied paraesophageal lymph nodes along with multiple splenic calcifications consistent with old granul omatous disease. A couple 1 mm nonobstructing stones at the upper pole of the right kidney. The follo wing disc levels are specifically discussed: T10-T11: Very small posterior disc osteophyte complex with only minimal central canal stenosis. There is no facet joint osteoarthritis. There is no neural foraminal stenosis. T9-T10, T11-T12 and T12-L1: The disc does not extend beyond the endplate margin. There is mild bilate ral facet joint osteoarthritis. There is no neural foraminal stenosis. There is no central canal sten osis. L1-L2: Disc is mildly bulging. There is mild bilateral facet joint osteoarthritis. There is no neural foraminal stenosis. There is mild central canal stenosis. L2-L3: Disc is mildly bulging. There is mild bilateral facet joint osteoarthritis. There is mild righ t neural foraminal stenosis. There is mild central canal stenosis. L3-L4: Disc is bulging. There is mild bilateral facet joint osteoarthritis. There is mild bilateral n eural foraminal stenosis. There is mild central canal stenosis. L4-L5: Disc is bulging. There is mild to moderate bilateral facet joint osteoarthritis. There is mild bilateral neural foraminal stenosis. There is mild central canal stenosis. L5-S1: Disc is bulging. There is severe bilateral facet joint osteoarthritis. There is mild left and moderate right neural foraminal stenosis. There is mild central canal stenosis. IMPRESSION: 1. Severe lumbar spondylosis. No acute osseous abnormality. 2. A couple tiny 1 mm nonobstructing right renal stones. 3. Small sliding-type hiatal hernia. Reviewed, dictated and finalized at location A.
[2021-05-25 05:05] VITALS: BP 154/81; PULSE 71; RESP 20; TEMP 36.6; O2SAT 97
[2021-05-25] MEDS: KETOROLAC (*BKC) 60 MG/2 ML VIAL IM (05:34)
[2021-05-25 06:00] LABS: Appearance Urine Clear (Clear); Bilirubin Urine Negative (Negative); Color Urine Light Yellow (Yellow); Glucose Urine UA Negative (Negative); Ketones Urine Negative (Negative); Leukocyte Esterase Ur Negative (Negative); Nitrate Urine Negative (Negative); Protein Urine Negative (Negative); Specific Grav Ur 1.015 (1.010-1.020); Urobilinogen Urine 0.2 mg/dL (0.2-1.0)
[2021-05-25 06:08] LABS: Add Urine Microscopic? YES; Blood Urine Trace (Negative); RBC Urine None seen /hpf (0-2); Squamous Epithelial Cell Urine Rare /hpf (Few); WBC Urine None seen /hpf (0-3)
[2021-05-25 06:11] LABS: Alanine Aminotransferase 31 U/L (14-59); Albumin Level 3.9 g/dL (3.4-5.0); Alkaline Phosphatase 84 U/L (46-116); Anion Gap 10 mmol/L (8-16); Aspartate Amino Transferase 12 U/L (15-37); Bilirubin,Total 0.5 mg/dL (0.00-1.00); Blood Urea Nitrogen 5 mg/dL (7-18); Calcium 8.6 mg/dL (8.5-10.1); Carbon Dioxide 26 mmol/L (21-32); Chloride 106 mmol/L (98-108); Estimated CRCL calculation 56 ml/min; Estimated Glomerular Filt Rate > 60; Glucose 135 mg/dL (70-99); Magnesium 1.8 mg/dL (1.8-2.4); Osmolality Calculated 293 mOsm/kg (285-295); Potassium 3.6 mmol/L (3.5-5.1); Sodium 142 mmol/L (136-145); Total Protein 7.8 g/dL (6.4-8.2)
--- NOTE | 2021-05-25 06:37 | ED.BACK ---
HPI - Back Pain/Injury General Chief Complaint: Back Pain/Injury Stated Complaint: Back pain Source: patient Mode of arrival: ambulatory Limitations: no limitations History of Present Illness HPI Narrative: this is a 70-year-old female presents after she was having difficulty rolling in bed, having lower back pain with sciatic nerve pain radiating into her right lower extremity, patient has chronic back pain with sciatica and is currently on hydrocodone at home, there is no fever chills had a radiation of her pain into her right lower extremity with no saddle paresthesias no bowel or bladder dysfunction no fever chills no abdominal pain no nausea vomiting. MD elicited complaint: back pain Pertinent past history: prior back pain Onset (ago): hour(s) Timing: constant Severity: mild Pain scale (0-10): 6 Quality: aching Location: lumbar spine Radiation: left leg below the knee Exacerbating factors: movement Relieving factors: immobilization Context: turning/twisting Associated symptoms: denies other symptoms Related Data Home Medications Medication Instructions Recorded Confirmed cholecalciferol (vitamin D3) 25 25 mcg PO DAILY 03/06/20 05/25/21 mcg (1,000 unit) capsule hydrocodone 5 mg-acetaminophen 300 1 tablet PO BID PRN 03/06/20 05/25/21 mg tablet potassium chloride 10 mEq 300 meq PO TID 03/06/20 05/25/21 tablet,extended release carica papaya [Papaya Enzyme] 1 tablet PO DAILY 10/19/20 05/25/21 famotidine 20 mg PO BID 05/25/21 05/25/21 loratadine 10 mg PO DAILY 05/25/21 05/25/21 Allergies Allergy/AdvReac Type Severity Reaction Status Date / Time ciprofloxacin Allergy Unknown Dyspnea / Verified 12/20/17 07:15 SOB latex Allergy Unknown Verified 10/28/17 13:33 procaine Allergy Unknown Verified 10/28/17 13:32 Review of Systems Review of Systems: All systems reviewed & are unremarkable except as noted in HPI and below PMFSH Past Medical History Medical History Renal calculi Surgical History Surgical History No significant past surgical history Family History Family History Other Cerebrovascular accident Family history of cardiovascular disease Family history of liver disease Family history of thyroid disease Social History Social History Gender identity (if verbalized by the patient): Female Exam Const: General: no acute distress and alert Orientation/consciousness: patient oriented x3 HENMT: Head: normal to inspection Eyes: Conjunctivae: conjunctivae normal Pupils: Equal, round and reactive pupils present Chest: Chest palpation & inspection: normal inspection of the chest Resp: Effort & Inspection: normal respiratory effort Auscultation: clear to auscultation bilaterally Cardio: Rate: regular rate Rhythm: regular rhythm GI: Inspection: distended : General: Yes no CVA tenderness Urinary Catheter: Urinary Catheter: patent and draining Back/Spine/Pelvis: Back: no CVA tenderness Skin: General skin exam: normal color Rashes: no rashes Neuro: General: patient oriented x3, moves all extremities and no meningeal signs Other: Positive straight leg raising test on the right Extrem: General: normal to inspection and no pedal edema Psych: Mental Status: mental status grossly normal Affect: normal affect Course Course Emergency Course: reassessment of patient, pain level has improved with I M Toradol, CT scan and lab work was reviewed with patient. Vital Signs Vital signs: Vital Signs Temperature 36.6 C 05/25/21 05:05 Pulse Rate 71 05/25/21 05:05 Respiratory Rate 20 05/25/21 05:05 Blood Pressure 154/81 H 05/25/21 05:05 Pulse Oximetry 97 05/25/21 05:05 Temperature 36.6 C 05/25/21 05:05 Pulse Rate 71 05/25/21 05:05
[2021-05-25 06:38] VITALS: BP 134/70; PULSE 70; RESP 20; TEMP 36.6; O2SAT 98
== END 2021-05-25 06:48 | disposition home or self-care (01) ==
PROVIDERS: Emergency Provider Emergency Medicine; PCP Internal Medicine
DX: M54.31 Sciatica, right side (principal)
CPT/HCPCS: 36415; 72131; 80053; 81001; 83735; 96372; 99283; 99284; J1885

== ENCOUNTER 2021-08-03 02:59 | Emergency (ER) | payer MEDICARE, SELFPAY ==
[2021-08-03 03:15] VITALS: BP 164/87; PULSE 68; RESP 18; TEMP 36.1; O2SAT 98
--- NOTE | 2021-08-03 03:16 | ED.BACK ---
HPI - Back Pain/Injury General Chief Complaint: Back Pain/Injury Stated Complaint: Back Pain Source: patient Mode of arrival: ambulatory Limitations: no limitations History of Present Illness HPI Narrative: this is a 71-year-old female with a history of chronic back pain presents with her typical back pain with spasm located in the right lower back area on L5 with some paravertebral tenderness with movement and palpation with no dysuria no fever chills no shortness of breath no chest pain. MD elicited complaint: back pain Pertinent past history: prior back pain Onset (ago): hour(s) Timing: constant Severity: moderate Quality: aching and spasming Related Data Home Medications Medication Instructions Recorded Confirmed cholecalciferol (vitamin D3) 25 25 mcg PO DAILY 03/06/20 08/03/21 mcg (1,000 unit) capsule hydrocodone 5 mg-acetaminophen 300 1 tablet PO BID PRN 03/06/20 08/03/21 mg tablet potassium chloride 10 mEq 300 meq PO TID 03/06/20 08/03/21 tablet,extended release carica papaya [Papaya Enzyme] 1 tablet PO DAILY 10/19/20 08/03/21 famotidine 20 mg PO BID 05/25/21 08/03/21 tamsulosin 0.4 mg PO DAILY PRN 08/03/21 08/03/21 Allergies Allergy/AdvReac Type Severity Reaction Status Date / Time ciprofloxacin Allergy Unknown Dyspnea / Verified 12/20/17 07:15 SOB latex Allergy Unknown Verified 10/28/17 13:33 procaine Allergy Unknown Verified 10/28/17 13:32 Review of Systems Review of Systems: All systems reviewed & are unremarkable except as noted in HPI and below PMFSH Past Medical History Medical History Renal calculi Surgical History Surgical History No significant past surgical history Family History Family History Other Cerebrovascular accident Family history of cardiovascular disease Family history of liver disease Family history of thyroid disease Social History Social History Gender identity (if verbalized by the patient): Female Exam Const: General: no acute distress Orientation/consciousness: patient oriented x3 HENMT: Head: normal to inspection Eyes: Conjunctivae: conjunctivae normal Pupils: Equal, round and reactive pupils present EOM: EOMs intact bilaterally Neck: Neck: normal visual inspection, no lymphadenopathy and no meningeal signs Resp: Effort & Inspection: normal respiratory effort Cardio: Rate: regular rate Rhythm: regular rhythm GI: GI Palp: Yes Soft to palpation Back/Spine/Pelvis: Back: CVA tenderness Skin: General skin exam: normal color Rashes: no rashes Neuro: General: patient oriented x3 and moves all extremities Extrem: Other: L4 and 5 left paravertebral tenderness with negative straight leg raise test Psych: Mental Status: mental status grossly normal Course Course Emergency Course: UA was obtained and reviewed with patient Toradol given. Vital Signs Vital signs: Vital Signs Temperature 36.1 C L 08/03/21 03:15 Pulse Rate 68 08/03/21 03:15 Respiratory Rate 18 08/03/21 03:15 Blood Pressure 164/87 H 08/03/21 03:15 Pulse Oximetry 98 08/03/21 03:15 Temperature 36.1 C L 08/03/21 03:15 Pulse Rate 68 08/03/21 03:15 Respiratory Rate 18 08/03/21 03:15 Blood Pressure 164/87 H 08/03/21 03:15 Pulse Oximetry 98 08/03/21 03:15 Critical Care Time Critical Care Time Critical Care Time: No Discharge Plan Discharge Clinical Impression: Strain of lumbar region Qualifiers: Encounter type: initial encounter Qualified Code(s): S39.012A - Strain of muscle, fascia and tendon of lower back, initial encounter Patient Disposition: Home, Self-Care Condition: Stable Instructions: Antibiotic Form, Back Pain (ED), Acute Low Back Pain (ED) Additional Instructions: Take medicine
[2021-08-03] MEDS: KETOROLAC (*BKC) 60 MG/2 ML VIAL IM (03:22)
[2021-08-03 03:28] LABS: Appearance Urine Clear (Clear); Bilirubin Urine Negative (Negative); Color Urine Light Yellow (Yellow); Glucose Urine UA Negative (Negative); Ketones Urine Negative (Negative); Leukocyte Esterase Ur Negative (Negative); Nitrate Urine Negative (Negative); Protein Urine Negative (Negative); Urobilinogen Urine 0.2 mg/dL (0.2-1.0)
[2021-08-03 03:33] LABS: Add Urine Microscopic? YES; Blood Urine Trace-Intact (Negative); RBC Urine None seen /hpf (0-2)
[2021-08-03 03:44] VITALS: BP 156/80; PULSE 76; RESP 18; O2SAT 97
== END 2021-08-03 03:46 | disposition home or self-care (01) ==
PROVIDERS: Emergency Provider Emergency Medicine; PCP Internal Medicine
DX: S39.012A Strain of muscle, fascia and tendon of lower back, initial encounter (principal)
CPT/HCPCS: 81001; 96372; 99283; J1885

== ENCOUNTER 2021-08-04 06:50 | Emergency (ER) | payer MEDICARE, SELFPAY ==
--- NOTE | ~2021-08-04 | CT_ITS ---
EXAMINATION: CT abdomen pelvis wo con DATE: 08/04/2021 09:29 INDICATION: Left flank pain TECHNIQUE: Computed tomography (CT) of the abdomen and pelvis was performed without intravenous contr ast. The dose-length product was 615.67 mGy-cm. Automated exposure control and iterative reconstruct ion technique were employed. COMPARISON: CT dated 10/19/2020. FINDINGS: Lung bases are unremarkable. Heart size is normal. No significant pleural or pericardial ef fusion. There are calcified granulomas of the lung bases. Status post cholecystectomy. There are calc ified granulomas of the spleen. Fatty infiltration of the liver. The pancreas, adrenal glands and left kidney are unremarkable. There is a nonobstructing left renal stone. No ureteral stones or hydronephrosis. There is a calcified devin rine fibroid exophytic from the uterine fundus. Moderate lumbar spondylosis. IMPRESSION: 1. Nonobstructing right nephrolithiasis. 2: Uterine fibroids. Reviewed, dictated and finalized at location A. NS CUTTER
--- NOTE | ~2021-08-04 | XR_ITS ---
EXAMINATION: XR chest 2V DATE: 08/04/2021 08:19 INDICATION: Dyspnea. Left flank pain. TECHNIQUE: Frontal and lateral views of the chest were obtained. COMPARISON: Chest 2 views 04/03/2019, CT abdomen and pelvis 10/19/2020, chest CT 07/17/2020 FINDINGS: There is chronic mild scarring in lingula and right upper lobe. No pleural effusion or pneu mothorax. The heart size is normal. Calcified hilar and mediastinal lymph nodes are consistent with o ld granulomatous disease. IMPRESSION: 1. Stable mild scarring in lingula and right upper lobe. Reviewed, dictated and finalized at location A. LLE TRANSCRIBER
--- NOTE | ~2021-08-04 | CT_ITS ---
EXAMINATION: CTA chest PE protocol DATE: 08/04/2021 09:30 INDICATION: Shortness of breath TECHNIQUE: Computed tomography angiography (CTA) of the chest was performed with 100 mL Omnipaque-350 intravenous contrast timed to evaluate the pulmonary arteries. Coronal maximum intensity projection 3D-reconstructions were created by the technologist. The dose-length product (DLP) was 599.56 mGy-cm. Automated exposure control and iterative reconstruction technique were employed. COMPARISON: 07/17/2020 FINDINGS: The pulmonary arteries are well-opacified. No pulmonary embolism is identified. The lungs a re free of acute opacities. There is no pleural effusion or pneumothorax. No pathologically enlarged thoracic lymph nodes are identified. The heart size is normal. There is a small sliding hiatal hernia . Punctate calcifications in an otherwise normal spleen likely represent healed granulomatous disease . The gallbladder is surgically absent. There is mild thoracic spondylosis. IMPRESSION: 1. No pulmonary embolism or acute cardiopulmonary abnormality. Reviewed, dictated and finalized at location B. SERVICE COORDINATOR
[2021-08-04 07:07] VITALS: BP 150/74; PULSE 79; RESP 18; TEMP 36.3; O2SAT 98
--- NOTE | 2021-08-04 07:10 | ED.BACK ---
HPI - Back Pain/Injury General Chief Complaint: Back Pain/Injury Stated Complaint: SOB/Back pain Time Seen by Provider: 08/04/21 07:10 Source: patient Mode of arrival: ambulatory Limitations: no limitations History of Present Illness HPI Narrative: 71-year-old woman with a history of kidney stones comes in today complaining of left flank pain that started 2 days ago. Patient states that she woke up this morning feeling short of breath. She denies fever, vomiting, hematuria, dysuria, abdominal pain, chest pain or cough. She has had no recent cough or cold symptoms or sick exposures. MD elicited complaint: back pain and other Pertinent past history: kidney stones Onset (ago): day(s) (2) Timing: constant Severity: severe Pain scale (0-10): 10 Similar Symptoms Previously: Yes Quality: sharp Location: left flank Radiation: none Exacerbating factors: none Relieving factors: none Treatments prior to arrival: prescription analgesics Related Data Home Medications Medication Instructions Recorded Confirmed cholecalciferol (vitamin D3) 25 25 mcg PO DAILY 03/06/20 08/04/21 mcg (1,000 unit) capsule hydrocodone 5 mg-acetaminophen 300 1 tablet PO BID PRN 03/06/20 08/04/21 mg tablet potassium chloride 10 mEq 300 meq PO TID 03/06/20 08/04/21 tablet,extended release carica papaya [Papaya Enzyme] 1 tablet PO DAILY 10/19/20 08/04/21 famotidine 20 mg PO BID 05/25/21 08/04/21 tamsulosin 0.4 mg PO DAILY PRN 08/03/21 08/04/21 Allergies Allergy/AdvReac Type Severity Reaction Status Date / Time ciprofloxacin Allergy Unknown Dyspnea / Verified 08/04/21 07:37 SOB latex Allergy Unknown Unknown Verified 08/04/21 07:37 procaine Allergy Unknown Unknown Verified 08/04/21 07:37 Review of Systems Review of Systems: All systems reviewed & are unremarkable except as noted in HPI and below Constitutional: Constitutional: Denies chills, Denies fever(s) and Denies weakness ENT: Denies nasal congestion and Denies sore throat Cardiovascular: Cardiovascular: Denies chest pain and Denies radiating jaw, neck or arm pain Respiratory: Respiratory: Denies cough, Denies dyspnea and Denies wheezing Gastrointestinal: Gastrointestinal: Denies abdominal pain, Denies diarrhea, Denies nausea and Denies vomiting Genitourinary: Genitourinary: Denies hematuria, Denies nocturia and Denies dysuria Musculoskeletal: Musculoskeletal: Reports as per HPI, Denies arthralgias and Denies joint swelling Integumentary/Breasts: Skin/Breast: Denies pruritus, Denies erythema and Denies rash Neurologic: Denies vertigo, Denies dizziness and Denies syncope Allergic/Immunologic: Allergic/Immunologic: Denies lip swelling and Denies throat swelling PMFSH Past Medical History Medical History (Updated 08/04/21 @ 10:50 by Albaro Diaz MD) Low TSH level Prediabetes Renal calculi Uterine fibroid Surgical History Surgical History (Updated 08/04/21 @ 10:48 by Albaro Diaz MD) H/O parathyroidectomy No significant past surgical history Family History Family History Other Cerebrovascular accident Family history of cardiovascular disease Family history of liver disease Family history of thyroid disease Social History Social History (Updated 08/04/21 @ 07:33 by Albaro Diaz MD) Smoking status: Never smoker Gender identity (if verbalized by the patient): Female Exam Const: General: healthy appearing and alert Orientation/consciousness: patient oriented x3 Limitations: no limitations Other: Moderate acute distress. HENMT: Head: normal to inspection Ears: external ears normal, EAC's normal and Abnormal EAC present General nose exam: Normal nares present Face and sinus: normal facial exam Mouth: Yes moist mucous membranes Throat: posterior oropharynx normal Eyes: Conjunctivae: conjunctivae normal Pupils: Equal, round and reactive pupils present EOM: EOMs intact bi
[2021-08-04 07:13] VITALS: BP 150/74; PULSE 79; RESP 20; TEMP 36.3; O2SAT 98
--- NOTE | 2021-08-04 07:15 | ECG_ITS ---
Measurements Intervals [place] Rate: 70 P: 49 HI: 198 QRS: 40 QRSD: 106 T: 35 QT: 418 QTc: 452 Interpretive Statements SINUS RHYTHM DELAYED PRECORDIAL R/S TRANSITION BASELINE ARTIFACT- I, II, III, AVR, AVF, V3-V6 BORDERLINE ECG Electronically Signed On 08-04-2021 8:02:10 ASSOCIATE SALES MANAGER by Tarun Cheng D.O.
[2021-08-04] MEDS: KETOROLAC 30 MG/ML VIAL (*BKC) IV PUSH (07:28)
[2021-08-04 07:55] LABS: Add Urine Microscopic? YES; Appearance Urine Clear (Clear); Basophils Absolute Auto 0.05 K/mm3 (0.00-0.10); Basophils Percent Auto 0.6 % (0.0-1.0); Bilirubin Urine Negative (Negative); Blood Urine 1+ (Negative); Color Urine Light Yellow (Yellow); Eosinophils Absolute Auto 0.37 K/mm3 (0.02-0.50); Eosinophils Percent Auto 4.6 % (1.0-6.0); Glucose Urine UA Negative (Negative); Hematocrit 42.2 % (35.0-42.0); Hemoglobin 13.5 g/dL (11.7-13.8); Immature Granulocyte Absolute 0.03 K/mm3 (0.00-0.00); Immature Granulocyte Percent A 0.4 % (0.0-0.0); Ketones Urine Negative (Negative); Leukocyte Esterase Ur Negative (Negative); Lymphocytes Absolute Auto 1.88 K/mm3 (1.10-4.50); Lymphocytes Percent Auto 23.2 % (18.0-42.0); Mean Corpuscular Hemoglobin 30.1 pg (27.0-31.0); Mean Platelet Volume 10.1 fl (9.2-11.8); Monocytes Absolute Auto 0.53 K/mm3 (0.10-0.90); Monocytes Percent Auto 6.5 % (2.0-11.0); Neutrophils Absolute Auto 5.3 K/mm3 (1.7-7.2); Neutrophils Percent Auto 64.7 % (50.0-70.0); Nitrate Urine Negative (Negative); Platelet Count Result 385 K/mm3 (150-420); Protein Urine Negative (Negative); Red Blood Count 4.49 M/mm3 (4.20-5.40); Red Cell Distribution Width 12.4 % (11.6-14.4); Urobilinogen Urine 0.2 mg/dL (0.2-1.0); White Blood Count 8.1 K/mm3 (4.8-10.8)
[2021-08-04 08:10] LABS: RBC Urine 0-2 /hpf (0-2); Squamous Epithelial Cell Urine Rare /hpf (Few); WBC Urine None seen /hpf (0-3)
[2021-08-04 08:11] LABS: Bacteria Urine Trace /hpf
[2021-08-04 08:13] LABS: D Dimer 0.79 mg/L (0.19-0.50)
[2021-08-04 08:17] LABS: Alanine Aminotransferase 27 U/L (14-59); Albumin Level 3.8 g/dL (3.4-5.0); Alkaline Phosphatase 83 U/L (46-116); Anion Gap 12 mmol/L (8-16); Aspartate Amino Transferase 16 U/L (15-37); Bilirubin,Total 0.4 mg/dL (0.00-1.00); Blood Urea Nitrogen 18 mg/dL (7-18); Calcium 9.1 mg/dL (8.5-10.1); Carbon Dioxide 23 mmol/L (21-32); Chloride 104 mmol/L (98-108); Estimated CRCL calculation 45 ml/min; Estimated Glomerular Filt Rate 50; Glucose 138 mg/dL (70-99); Magnesium 2.1 mg/dL (1.8-2.4); NT Pro B Type Natriuretic Pept 43 pg/mL (0-125); Osmolality Calculated 291 mOsm/kg (285-295); Potassium 3.7 mmol/L (3.5-5.1); Sodium 139 mmol/L (136-145); Total Protein 7.4 g/dL (6.4-8.2); Troponin I 5.1 ng/L (0.00-60.4)
[2021-08-04 10:51] LABS: Troponin I 4.9 ng/L (0.00-60.4)
[2021-08-04 11:06] VITALS: BP 145/79; PULSE 65; RESP 20; TEMP 36.6; O2SAT 98
== END 2021-08-04 11:00 | disposition home or self-care (01) ==
PROVIDERS: Emergency Provider Emergency Medicine; PCP Internal Medicine
DX: R06.02 Shortness of breath (principal); R10.9 Unspecified abdominal pain
CPT/HCPCS: 36415; 71046; 71275; 74176; 80053; 81001; 83735; 83880; 84484; 85025; 85380; 87040; 87086; 87088; 93005; 96374; 99283; 99284; J1885; Q9967

== ENCOUNTER 2021-12-30 11:32 | Outpatient (CLI) | payer MEDICARE, SELFPAY ==
[2021-12-30 11:43] LABS: Basophils Absolute Auto 0.05 K/mm3 (0.00-0.10); Basophils Percent Auto 0.7 % (0.0-1.0); Eosinophils Percent Auto 4.1 % (1.0-6.0); Hemoglobin 13.6 g/dL (11.7-13.8); Immature Granulocyte Absolute 0.02 K/mm3 (0.00-0.00); Immature Granulocyte Percent A 0.3 % (0.0-0.0); Lymphocytes Absolute Auto 2.31 K/mm3 (1.10-4.50); Lymphocytes Percent Auto 31.4 % (18.0-42.0); Mean Corpuscular HGB Conc 33.2 g/dL (32.0-36.0); Mean Corpuscular Hemoglobin 30.4 pg (27.0-31.0); Mean Corpuscular Volume 91.5 fL (78.0-102.0); Mean Platelet Volume 10.1 fl (9.2-11.8); Monocytes Absolute Auto 0.52 K/mm3 (0.10-0.90); Monocytes Percent Auto 7.1 % (2.0-11.0); Neutrophils Absolute Auto 4.2 K/mm3 (1.7-7.2); Neutrophils Percent Auto 56.4 % (50.0-70.0); Platelet Count Result 386 K/mm3 (150-420); Red Blood Count 4.48 M/mm3 (4.20-5.40); Red Cell Distribution Width 12.3 % (11.6-14.4); White Blood Count 7.4 K/mm3 (4.8-10.8)
[2021-12-30 12:20] LABS: Anion Gap 11 mmol/L (8-16); Blood Urea Nitrogen 13 mg/dL (7-18); Calcium 9.3 mg/dL (8.5-10.1); Carbon Dioxide 24 mmol/L (21-32); Chloride 104 mmol/L (98-108); Estimated Glomerular Filt Rate > 60; Glucose 113 mg/dL (70-99); Osmolality Calculated 289 mOsm/kg (285-295); Sodium 139 mmol/L (136-145)
== END 2021-12-30 11:33 | disposition home or self-care (01) ==
LOC: CHSLAB 11:34
PROVIDERS: PCP Internal Medicine; Visit Provider Nurse Practitioner Family
DX: R42 Dizziness and giddiness (principal)
CPT/HCPCS: 36415; 80048; 85025

== ENCOUNTER 2022-04-28 11:05 | Emergency (ER) | payer MEDICARE, SELFPAY ==
--- NOTE | ~2022-04-28 | CT_ITS ---
EXAMINATION: CT facial & cervical spine wo DATE: 04/28/2022 12:14 INDICATION: Head injury. Face injury. TECHNIQUE: Computed tomography (CT) of the maxillofacial region and cervical spine was performed with out intravenous contrast. Automated exposure control and iterative reconstruction technique were empl oyed. The dose-length product was 367.34 mGy-cm. COMPARISON: None FINDINGS: MAXILLOFACIAL CT: There are fractures of the nasal bones. There is soft tissue swelling of the nose and forehead with s oft tissue gas. There are likely changes of ocular lens replacement surgeries. There is mild mucosal thickening in the paranasal sinuses. The mastoid air cells are normal. Tooth 19 demonstrates a cariou s lesion and periapical lucencies. There is a adventism that does not cover the carious lesion. CERVICAL SPINE CT: There is mild scarring at the lung apices. There is a 5 mm nodule in right thyroid lobe, likely not c linically significant. There is 7 degrees dextrocurvature of cervicothoracic spine. There is 2 mm ret rolisthesis of C4 on C5. Vertebral body heights are normal. There is severely decreased disc height f rom C3-C4 through C6-C7 and mildly decreased disc height at C7-T1. The following disc levels are spec ifically discussed: C2-C3: There is no uncovertebral joint osteoarthritis. There is severe bilateral facet joint osteoart hritis. There is mild bilateral neural foraminal stenosis. There is no central canal stenosis. C3-C4: There is severe bilateral uncovertebral joint osteoarthritis. There is severe bilateral facet joint osteoarthritis. There is moderate bilateral neural foraminal stenosis. There is mild central ca nal stenosis. C4-C5: There is severe bilateral uncovertebral joint osteoarthritis. There is mild right and moderate left facet joint osteoarthritis. There is moderate bilateral neural foraminal stenosis. There is mil d central canal stenosis. C5-C6: There is severe bilateral uncovertebral joint osteoarthritis. There is moderate right and miko re left facet joint osteoarthritis. There is moderate bilateral neural foraminal stenosis. There is m ild central canal stenosis. C6-C7: There is severe bilateral uncovertebral joint osteoarthritis. There is severe bilateral facet joint osteoarthritis. There is mild right and moderate left neural foraminal stenosis. There is mild central canal stenosis. C7-T1: There is no uncovertebral joint osteoarthritis. There is severe bilateral facet joint osteoart hritis. There is mild right neural foraminal stenosis. There is mild central canal stenosis. IMPRESSION: 1. Fractures of the nasal bones. 2. Severe cervical spondylosis. Reviewed, dictated and finalized at location A.
--- NOTE | ~2022-04-28 | XR_ITS ---
EXAMINATION: XR chest 1V portable DATE: 04/28/2022 12:16 INDICATION: Chest wall pain post fall TECHNIQUE: frontal view of the chest was obtained. COMPARISON: Chest radiograph dated 08/04/21 FINDINGS: Unchanged mild lingular linear discoid atelectasis/scarring at the lateral left midlung zone. No new airspace opacities, pulmonary edema, pleural effusion or pneumothorax. The cardiomediastinal silhouet te is normal. Visualized bones and soft tissues are unremarkable. IMPRESSION: 1. Chronic mild linear discoid atelectasis/scarring. No acute cardiopulmonary disease. Reviewed, dictated and finalized at location A. IMPRESSION: 1. Chronic mild linear discoid atelectasis/scarring. No acute cardiopulmonary d isease.
--- NOTE | ~2022-04-28 | CT_ITS ---
EXAMINATION: CT brain wo con DATE: 04/28/2022 12:14 INDICATION: Head injury. TECHNIQUE: Computed tomography (CT) of the head was performed without intravenous contrast. The mA wa s adjusted according to patient size. Iterative reconstruction technique was employed. The dose-lengt h product was 605.33 mGy-cm. COMPARISON: None FINDINGS: There are scattered areas of low attenuation in the cerebral white matter. There is no intr acranial hemorrhage, acute infarction, or abnormal intracranial mass lesion. The ventricles are mian l in size. There is forehead soft tissue swelling. There are fractures of the nasal bones. The mastoi d air cells are normal. There are likely changes of ocular lens replacement surgeries. There is mild mucosal thickening in the paranasal sinuses. IMPRESSION: 1. Moderate nonspecific cerebral white matter disease, which likely represents chronic small vessel i schemic disease. 2. Fractures of the nasal bones. Reviewed, dictated and finalized at location A. IMPRESSION: 1. Moderate nonspecific cerebral white matter disease, which likely represents chronic small vessel ischemic disease. 2. Fractures of the nasal bones.
--- NOTE | ~2022-04-28 | XR_ITS ---
EXAMINATION: XR pelvis 1-2V DATE: 04/28/2022 12:16 INDICATION: Fall with chest and facial pain TECHNIQUE: An anteroposterior view of the pelvis was obtained. COMPARISON: CT dated 08/04/2021 FINDINGS: Alignment is normal. No fracture. Severe lower lumbar spondylosis. Minimal to mild bilateral hip and sacroiliac osteoarthritis. Calcified uterine fibroid in the right hemipelvis. IMPRESSION: 1. No acute osseous abnormality. 2. Severe lower lumbar spondylosis. 3. Calcified uterine fibroid. Reviewed, dictated and finalized at location A.
[2022-04-28 11:13] VITALS: BP 173/105; PULSE 78; RESP 16; TEMP 37; O2SAT 98
[2022-04-28 11:18] VITALS: BP 173/105; PULSE 78; RESP 16; TEMP 37; O2SAT 98
--- NOTE | 2022-04-28 11:22 | ED.FALL ---
HPI - Fall General Chief Complaint: Fall Stated Complaint: Ambulance Time Seen by Provider: 04/28/22 11:22 Source: patient Mode of arrival: ambulatory History of Present Illness HPI Narrative: 71-year-old female with left phocomelia was walking in [employer] when she slipped on water and fell on her face. She presents with -- facial pain. -- Abrasions over her forehead andnose with epixtaxis -- left upper chest wall pain no loss of consciousness. no neck or back pain. EMS was summoned who placed C-collar. MD complaint: fall Onset (ago): minute(s) ( 30 minutes ago) Fall from: standing Fall witnessed: yes, by bystander Place fall occurred: [facility] ( [facility]) Loss of consciousness: none Prolonged down time: no Symptoms prior to fall: none Context: tripped/slipped Location of injury: face and chest Associated symptoms (after fall): denies Related Data Home Medications Medication Instructions Recorded Confirmed cholecalciferol (vitamin D3) 25 25 mcg PO DAILY 03/06/20 04/28/22 mcg (1,000 unit) capsule hydrocodone 5 mg-acetaminophen 300 1 tablet PO BID PRN Pain 03/06/20 04/28/22 mg tablet potassium chloride 10 mEq 300 meq PO TID 03/06/20 04/28/22 tablet,extended release (Klor-Con) carica papaya (Papaya Enzyme 1 tablet PO DAILY 10/19/20 04/28/22 tablet) famotidine 20 mg tablet 20 mg PO BID 05/25/21 04/28/22 tamsulosin 0.4 mg capsule 0.4 mg PO DAILY PRN Urinary 08/03/21 04/28/22 Retention Allergies Allergy/AdvReac Type Severity Reaction Status Date / Time ciprofloxacin Allergy Unknown Dyspnea / Verified 04/28/22 11:19 SOB latex Allergy Unknown Unknown Verified 04/28/22 11:19 procaine Allergy Unknown Unknown Verified 04/28/22 11:19 Review of Systems Review of Systems: All systems reviewed & are unremarkable except as noted in HPI and below Constitutional: Constitutional: Reports as per HPI and Reports no additional constitutional complaints Eyes: Eyes: Reports as per HPI and Reports no additional eye complaints ENT: Reports system reviewed and no additional complaints, except as documented and Reports as per HPI Comments: Abrasions over her nose with epistaxis Cardiovascular: Cardiovascular: Reports as per HPI and Reports no additional cardiovascular complaints Respiratory: Respiratory: Reports as per HPI and Reports no additional respiratory complaints Gastrointestinal: Gastrointestinal: Reports as per HPI and Reports no additional gastrointestinal complaints Genitourinary: Genitourinary: Reports no additional female genitourinary complaints Musculoskeletal: Musculoskeletal: Reports no additional musculoskeletal complaints Comments: Phocomelia of left upper extremity Integumentary/Breasts: Skin/Breast: Reports system reviewed and no additional complaints, except as docu Comments: abrasions over the nose and forehead Neurologic: Reports system reviewed and no additional complaints, except as documented and Reports as per HPI Psychiatric: Psychiatric: Reports no additional psychiatric complaints and Reports as per HPI Endocrine: Endocrine: Reports no additional endocrine complaints Hematologic/Lymphatic: Hematologic/Lymphatic: Reports no additional hematologic/lymphatic complaints and Reports as per HPI Allergic/Immunologic: Allergic/Immunologic: Reports no additional allergic/immunologic complaints and Reports as per HPI PMFSH Past Medical History Medical History Low TSH level Prediabetes Renal calculi Uterine fibroid Surgical History Surgical History H/O parathyroidectomy No significant past surgical history Family History Family History Other Cerebrovascular accident Family history of cardiovascular disease Family history of liver disease Family history of thyroid disease Soc
[2022-04-28] MEDS: KETOROLAC 30 MG/ML VIAL (*BKC) IM (12:58)
[2022-04-28 13:08] VITALS: BP 146/75; PULSE 67; RESP 16; TEMP 36.4; O2SAT 98
--- NOTE | 2022-04-28 13:09 | PC.NURSE ---
c-collar removed by erp.
== END 2022-04-28 13:10 | disposition home or self-care (01) ==
PROVIDERS: Emergency Provider Internal Medicine Critical Care Medicine
DX: S02.2XXA Fracture of nasal bones, initial encounter for closed fracture (principal); S09.90XA Unspecified injury of head, initial encounter; R07.89 Other chest pain; W01.0XXA Fall on same level from slipping, tripping and stumbling without subsequent striking against object, initial encounter; R73.03 Prediabetes
CPT/HCPCS: 70450; 70486; 71045; 72125; 72170; 96372; 99284; J1885

== ENCOUNTER 2023-07-12 12:18 | Outpatient (CLI) | payer MEDICARE, SELFPAY ==
[2023-07-12 13:34] LABS: Alanine Aminotransferase 32 U/L (6-35); Albumin Level 4.4 g/dL (3.5-5.1); Alkaline Phosphatase 71 U/L (38-126); Anion Gap 11 mmol/L (8-16); Aspartate Amino Transferase 34 U/L (14-36); Bilirubin,Total 0.7 mg/dL (0.2-1.3); Blood Urea Nitrogen 12 mg/dL (7-17); Calcium 9.1 mg/dL (8.4-10.2); Carbon Dioxide 23 mmol/L (22-30); Chloride 105 mmol/L (98-107); Estimated Glomerular Filt Rate > 60; Glucose 129 mg/dL (65-110); Potassium 3.2 mmol/L (3.4-5.0); Sodium 139 mmol/L (137-145)
[2023-07-12 13:43] LABS: Parathyroid Intact 39.3 pg/mL (7.5-53.5)
[2023-07-12 13:52] LABS: Free T4 Free Thyroxine 1.07 ng/mL (0.78-2.19)
[2023-07-12 14:01] LABS: Thyroid Stimulating Hormone 0.339 uIU/mL (0.465-4.680)
== END 2023-07-12 12:19 | disposition home or self-care (01) ==
PROVIDERS: Visit Provider Internal Medicine
DX: Z13.820 Encounter for screening for osteoporosis (principal); Z90.09 Acquired absence of other part of head and neck; E04.2 Nontoxic multinodular goiter; R73.03 Prediabetes
CPT/HCPCS: 36415; 80053; 83735; 83970; 84100; 84439; 84443

== ENCOUNTER 2023-07-15 07:59 | Outpatient (NON) | payer MEDICARE, SELFPAY ==
[2023-07-15 12:15] LABS: Total Volume 24 Hour Urine 3500 ml
[2023-07-15 12:25] LABS: Creatinine 24 Hour Urine 1.5 gm/24 (0.8-1.8); Creatinine Urine 43.2 mg/dL
[2023-07-21 13:03] LABS: Total Volume 3500 mL; Urine Calcium 10.2 mg/dL
== END 2023-07-15 08:00 | disposition home or self-care (01) ==
PROVIDERS: Visit Provider Internal Medicine
DX: E04.2 Nontoxic multinodular goiter (principal); Z90.09 Acquired absence of other part of head and neck; Z13.820 Encounter for screening for osteoporosis
CPT/HCPCS: 81050; 82340; 82570

== ENCOUNTER 2023-07-22 13:02 | Outpatient (CLI) | payer MEDICARE, SELFPAY ==
--- NOTE | ~2023-07-22 | US_ITS ---
EXAMINATION: US thyroid DATE: 07/22/2023 13:34 INDICATION: Nontoxic multinodular goiter. TECHNIQUE: Multiple ultrasound images of the thyroid were obtained. COMPARISON: Ultrasound 11/14/2020 FINDINGS: The right thyroid lobe measures 5.3 x 2.6 x 2.2 cm. The left thyroid lobe measures 5.1 x 2.4 x 1.9 c m. In the right thyroid lobe, there is a 10 mm mixed cystic and solid, isoechoic nodule with smooth margin without echogenic foci (TI-RADS TR2). There are multiple subcentimeter nodules in the thyroid. In the right thyroid lobe, there is a 13 mm solid, hypoechoic, wider than tall nodule with irregular margin without echogenic foci (TR4), stable from 06/22/19. Biopsy on 07/26/2019 was benign. IMPRESSION: 1. Small thyroid nodules, likely not clinically significant. No follow-up is needed. Reviewed, dictated and finalized at location E. IMPRESSION: 1. Small thyroid nodules, likely not clinically significant. No follow-up is ne eded.
== END 2023-07-22 13:03 | disposition home or self-care (01) ==
LOC: ANHIMG 13:09
PROVIDERS: Visit Provider Internal Medicine
DX: E04.2 Nontoxic multinodular goiter (principal)
CPT/HCPCS: 76536

== ENCOUNTER 2024-11-02 08:04 | Outpatient (RCR) | payer MEDICARE, SELFPAY ==
--- OUTSIDE RECORDS SUMMARY | 2024-11-02 13:44 | XMS_ITS | Clinical Summary ---
Author Organization [facility] Address [address] [place] [address] Phone Care Team Providers Care Social Sciences Chair Name Role Phone Esperanza Manrique MD Primary Care Provider + [phone] Allergies Active Allergy Reactions Criticality Noted Date Comments Ciprofloxacin Other (see Comments) High 01/21/2018 Citric Acid Swelling 11/18/2021 Gabapentin Other (see Comments) High 02/06/2021 Gluten Meal Other (see Comments) 05/24/2023 Gastric issues Latex Swelling 10/28/2017 Lidocaine Swelling Low 02/06/2021 With epi Molds & Smuts Other (see Comments),Runny Nose,Shortness of Breath,Swelling High 06/29/2022 Procaine Other (see Comments) 10/28/2017 Oat Grain (Diagnostic) Swelling 11/18/2021 grains in general Shellfish Allergy Anaphylaxis,Other (see Comments) High 01/26/2023 Medications Multivitamin-Mi nerals Tablet Take 1 Tablet by mouth daily. Active POTASSIUM CHLORIDE PO Take 300 mg by mouth. Active famotidine (PEPCID) 20 MG Tablet TAKE 1 TABLET BY MOUTH TWICE DAILY NEEDED FOR HEARTBURN 3 Active loratadine (CLARITIN) 10 MG Tablet Take 10 mg by mouth. 2 Active HYDROcodone-yung taminophen (NORCO) 7.5-325 MG Tablet TAKE 1 TABLET BY MOUTH EVERY 6 HOURS NEEDED FOR PAIN OR CHRONIC PAIN 3 Active tamsulosin (FLOMAX) 0.4 MG Capsule 3 Active Active Problems Problem Noted Date Diagnosed Date Folic acid deficiency 10/28/2017 B12 deficiency 10/28/2017 Family History Medical History Relation Name Comments Alzheimer's Disease Father Heart Attack Mother Liver Disease Mother Breast Cancer Paternal Grandmother Stroke Paternal Grandmother No Known Problems Sister Relation Name Status Comments Father Mother Paternal Grandmother Sister Alive Social History Tobacco Use Types Packs/Day Years Used Date Smoking Tobacco: Former Cigarettes 1 7 0 10/28/1982 - 10/28/1989 Smokeless Tobacco: Never Tobacco Cessation:Counseling Given: Not Answered Alcohol Use Standard Drinks/Week Comments No 0 (1 standard drink = 0.6 oz pur e alcohol) Comments Unknown Sex and Gender Information Value Date Recorded Sex Assigned at Not on file Legal Sex Female 10:25 AM SCHEDULER CONVEYOR Gender Identity Not on file Sexual Orientation Not on file Last Filed Vital Signs Vital Sign Reading Time Taken Comments Blood Pressure 140/76 05/24/2023 9:02 AM CDT Pulse 71 05/24/2023 9:02 AM CDT Temperature 36.8 C (98.2 F) 05/24/2023 9:02 AM CDT Respiratory Rate 18 05/24/2023 9:02 AM CDT Oxygen Saturation 95% 05/24/2023 9:02 AM CDT Inhaled Oxygen Concentration - - Weight 86.5 kg (190 lb 12.8 oz) 05/24/2023 9:02 AM CDT Height 165.1 cm (5' 5 ) 05/24/2023 9:02 AM CDT Body Mass Index 31.75 05/24/2023 9:02 AM CDT Plan of Treatment Health Maintenance Due Date Last Done Comments DEXA Bone Density 1950 Hepatitis C Virus (HCV) Screening 1950 Pneumococcal Immunization (5 0+ years) (1 of 1 - PCV) 1998 Zoster Immunization (1 of 2) 1998 Respiratory Syncytial Virus (RSV) Immunization (Adult) (1 - 1-dose 75+ series) 2023 Influenza Immunization (#1) 2024 SARS-COV-2 Immunization ( - 2023-25 season) 2024 DTaP/Tdap/Td Immunization Discontinued 11/10/2022 TdaP Immunization Completed 11/10/2022 Colorectal Cancer Screening Discontinued Immunochemical Fecal Occult Blood Discontinued 023 Cologuard Discontinued Colonoscopy High Risk Discontinued Colonoscopy Discontinued Hepatitis B Immunization Aged Out No longer eligible based on patient's age to complete this topic Meningococcal Immunization (ACWY) Aged Out No longer eligible based on patient's age to complete this topic Rotavirus Immunization Aged Out No lo nger eligible based on patient's age to complete this topic Insurance MEDICARE [facility] Care Teams Social Sciences Chair Relationship Specialty [place] [address] [place] [address] PCP - General Internal Medicine 10/28/17
--- OUTSIDE RECORDS SUMMARY | 2024-11-02 13:44 | XMS_ITS | Patient Health Summary ---
Author Organization [facility] Address [address] [place] [address] Care Team Providers Care Incendiary Powder Mixer Name Role Phone Heaven Frost KANG Primary Care Provider [phone] Note from Formerly named [facility],non-owned Affiliates and Associated Physician Practices is amultiple site organization consisting of ambulatory clinics and hospital sitesin [place], [place], [place] and [place]. This disclosure is being madepursuant to the Care Everywhere program and may not contain all information available regarding this patient. Last updated 18.[facility] Allergies * Novocain(Headache,Nausea and/or Vomiting) Medications * Be aware that medications may not be up to date on this document. Alwaysverify current medications with the patient. * HYDROcodone-acetaminophen ([place]) 7.5-325 MG tablet Take 1 (one) tablet by mouth every 6 hours as needed for Pain * tamsulosin (Flomax) 0.4 MG capsule Take 1 (one) capsule by mouth once daily At the same time every day after a meal. * vitamin D3 (Cholecalciferol) 10 MCG (400 UNIT) tablet Take 1 (one) tablet by mouth once daily * POTASSIUM BICARBONATE PO Patient takes K+2 potassium tabs, 300 mg TID. (From [employer]. ) Social History Tobacco Use Types Packs/Day Years Used Date Smoking Tobacco: Never Assessed Sex and Gender Information Value Date Recorded Sex Assigned at Not on file Gender Identity Female 03/27/2024 1:08 PM CDT Sexual Orientation Not on file Last Filed Vital Signs Vital Sign Reading Time Taken Comments Blood Pressure 148/88 05/10/2024 1:18 PM CDT Pulse 61 05/10/2024 1:18 PM CDT Temperature - - Respiratory Rate - - Oxygen Saturation 97% 05/10/2024 1:18 PM CDT Inhaled Oxygen Concentration - - Weight 84.8 kg (187 lb) 05/10/2024 1:18 PM CDT Height - - Body Mass Index - - Care Teams Incendiary Powder Mixer Relationship Specialty Start Date End Date Heaven Frost APRN-CHIEF GUARD [address] [place] [address] PCP - General Allergy and Immunology 05/10/24
--- OUTSIDE RECORDS SUMMARY | 2024-11-02 13:44 | XMS_ITS | Referral Summary ---
Author Organization [facility] [employer] Address [address] [place] [address] Care Team Providers Care Seed Cleaning Manager Name Role Phone Heaven Frost MATTHEWHYDRO PLANT SITE MANAGER Primary Care Provider [phone] Source Comments [facility] [employer],non-owned Affiliates and Associated Physician Practices is amultiple site organization consisting of ambulatory clinics and hospital sitesin [place], [place], [place] and [place]. This disclosure is being madepursuant to the Care Everywhere program and may not contain all information available regarding this patient. Last updated 18.[facility] Allergies Active Allergy Reactions Criticality Noted Date Comments Novocain Headache,Nausea and/or Vomiting 04/27 Medications * Be aware that medications may not be up to date on this document. Alwaysverify current medications with the patient. Medication Sig Dispensed Refills Start Date End Date Status HYDROcodone-acetamino phen ([place]) 7.5-325 MG tablet Take 1 (one) tablet by mouth every 6 hours as needed for Pain Active tamsulosin (Flomax) 0.4 MG capsule Take 1 (one) capsule by mouth once daily At the same time every day after a meal. Active vitamin D3 (Cholecalciferol) 10 MCG (400 UNIT) tablet Take 1 (one) tablet by mouth once daily Active POTASSIUM BICARBONATE PO Patient takes K+2 potassium tabs, 300 mg TID. (From [employer]. ) Active Social History Tobacco Use Types Packs/Day Years [...] - - Body Mass Index - - Plan of Treatment Not on file Care Teams Seed Cleaning Manager Relationship Specialty Start Date End Date Heaven Frost APRN-ALEN [address] [place], [place] [id number] PCP - General Allergy and Immunology 05/10/24
--- OUTSIDE RECORDS SUMMARY | 2024-11-02 13:44 | XMS_ITS | Clinical Summary ---
Author Organization [facility] Address [address] [place] [address] Care Team Providers Care Draw Bench Operator Name Role Phone Heaven Frost MATTHEWASSEMBLER FITTER Primary Care Provider [phone] Source Comments [facility],non-owned Affiliates and Associated Physician Practices is amultiple site organization consisting of ambulatory clinics and hospital sitesin [place], [place], [place] and [place]. This disclosure is being madepursuant to the Care Everywhere program and may not contain all information available regarding this patient. Last updated 18.[facility] Allergies Active Allergy Reactions Criticality Noted Date Comments Novocain Headache,Nausea and/or Vomiting 04/27 Medications * Be aware that medications may not be up to date on this document. Alwaysverify current medications with the patient. Medication Sig Dispensed Refills Start Date End Date Status HYDROcodone-acetamino phen ([place]) 7.5-325 MG tablet Take 1 (one) tablet [...] K+2 potassium tabs, 300 mg TID. (From [employer]. ) Active Social History Tobacco Use Types [...] Mass Index - - Plan of Treatment Health Maintenance Due Date Last Done Comments BONE DENSITY TESTING 1950 MEDICARE AWV 12 MONTHS 1950 HEPATITIS C SCREENING 06/24/1966 DTAP/TDAP/TD VACCINES (1 - Tdap) 1967 PNEUMOCOCCAL VACCINE 50+ (1 of 1 - PCV) 1998 ZOSTER VACCINE (1 of 2) 1998 Respiratory Syncytial Virus (RSV) Vaccine Pt: or over 60 yrs (1 - 1-dose 75+ series) 2023 COVID-19 VACCINE (2023-2 5 season) 2024 INFLUENZA VACCINE (#1) 2024 DEPRESSION SCREENING 09/27/2024 HEPATITIS B VACCINE Aged Out No longe r eligible based on patient's age to complete this topic HIB VACCINE Aged Out No longer eligi ble based on patient's age to complete this topic HPV VACCINE Aged Out No longer eligi ble based on patient's age to complete this topic MENINGOCOCCAL (Group B) VACCINE Aged Out No longer eligible based on patient's age to complete this topic MENINGOCOCCAL VACCINE Aged Out No giuseppe kell eligible based on patient's age to complete this topic Care Teams Draw Bench Operator Relationship Specialty Start Date End Date Heaven Frost CELL TUBER MACHINE-ASSEMBLER FITTER [address] [place] [address] PCP - General Allergy and Immunology 05/10/24
[2024-11-02 16:41] LABS: Total Volume 24 Hour Urine 3400 ml
[2024-11-02 16:49] LABS: Creatinine 24 Hour Urine 0.9 gm/24 (0.8-1.8); Creatinine Urine 27.6 mg/dL
== END 2024-11-02 08:30 | disposition home or self-care (01) ==
LOC: ANHLAB 08:04
PROVIDERS: Visit Provider Internal Medicine
DX: R73.03 Prediabetes (principal); Z90.09 Acquired absence of other part of head and neck; E04.1 Nontoxic single thyroid nodule; Z13.820 Encounter for screening for osteoporosis; Z68.32 Body mass index [BMI] 32.0-32.9, adult; R79.89 Other specified abnormal findings of blood chemistry
CPT/HCPCS: 81050; 82340; 82570

== ENCOUNTER 2025-02-12 15:44 | Outpatient (CLI) | payer MEDICARE, SELFPAY ==
--- OUTSIDE RECORDS SUMMARY | 2025-02-12 15:50 | XMS_ITS | Encounter Summary ---
Author Organization [facility] Address [facility] [place] [address] Care Team Providers Care Metal Bed Assembler Name Role Phone Annettarenanbrigida Eda DEAN OF FACULTY- Primary Care Provider + Amanda Bañuelos PRODUCT MARKETING SPECIALIST Primary Care Provider Heaven Shah NP Primary Care Provider [phone] Ellen Greer MD Primary Care Provider [phone] Encounter Details Date Type Department Care Team (Late st Contact Info) Description 07/14/2023 [employer] Message Enc [facility] Multispecialty Care - [facility] [address], [address] [place] [address] Fifi Reagan, SYLVIE [address] [facility] [place] [address] Since last appointment Social History Tobacco Use Types Packs/Day Years Used Date Smoking Tobacco: Former Cigarettes 1 7 0 09/27/1982 - 09/27/1989 Passive Smoke Exposure: Never Smokeless Tobacco: Never Comments:former smoker Alcohol Use Standard Drinks/Week Comments Not Currently 0 (1 standard drink = 0.6 oz pur e alcohol) PHQ-2 Answer Date Recorded Patient Health Questionnaire-2 Score 0 02/26/2023 Comments No Sex and Gender Information Value Date Recorded Sex Assigned at Female 11/22/2024 3:50 PM CREDIT REVIEW ANALYST Legal Sex Female 7:43 PM CDT Gender Identity Female 11/17/2021 3:08 PM CREDIT REVIEW ANALYST Sexual Orientation Straight 11/17/2021 3: 08 PM CREDIT REVIEW ANALYST Occupation Industry Job Start Date Job End Date Not on file Not on file Not on file Not on file documented as of this encounter Plan of Treatment Upcoming Encounters Date Type Department Care Team (Late st Contact Info) Description 02/13/2025 3:15 PM CDT Appointment [facility]ound [address] [place] [address] Kacey Vela MD [address] [place] [address] 04/09/2025 1:00 PM CDT Office Visit [facility] Medical [facility] Multispecialty Care - [facility] [address], [address] [place] [address] Zaynab Cuadra, MOTOR TESTER [address] [facility] [address] [place] [address] 06/25/2025 1:00 PM CDT Office Visit [facility] [address] [facility] [address], [address] [place] [address] Elvira Pagan MD [address] [place] [address] documented as of this encounter Visit Diagnoses Not on filedocumented in this encounter Additional Health Concerns Infection Onset Date Last Indicated Resolved Time COVID-19 Rule Out 11/22/2023 11/22/2023 11/22/2023 2:12 AM CREDIT REVIEW ANALYST COVID-19 Confirmed 11/22/2023 11/22/2023 12:32 AM CDT documented as of this encounter Care Teams Metal Bed Assembler Relationship Specialty Start Date End Date Eda Nunn FNP-BC PCP - General Nurse Practitioner Family 08/05/21 Amanda Bañuelos NP PCP - General NURSE PRACTITIONER 07/20/23 02/23/24 Heaven Frost NP [address] [place] [address] PCP - General NURSE PRACTITIONER 02/24/24 11/29/24 Ellen Greer MD [address] [place] [address] PCP - General FAMILY PRACTICE 11/30/24 documented as of this encounter
--- OUTSIDE RECORDS SUMMARY | 2025-02-12 15:50 | XMS_ITS | Encounter Summary ---
Author Organization [facility] Address [address] [place] [address] Care Team Providers Care Clean Up Helper Banquet Name Role Phone Eda Nunn [facility] Primary Care Provider + Amanda Bañuelos BULLET LUBRICATING MACHINE OPERATOR Primary Care Provider Heaven Shah BULLET LUBRICATING MACHINE OPERATOR Primary Care Provider [phone] Ellen Greer MD Primary Care Provider [phone] Encounter Details Date Type Department Care Team (Late st Contact Info) Description 08/14/2022 [id number] Message Enc [facility] Medical Group Family & Internal Medicine [address] [address] Eda Nunn [facility] [address] [place] [address] Hemal's appointment Social History Tobacco Use Types Packs/Day Years Used Date Smoking Tobacco: Former Cigarettes 1 7 0 09/27/1982 - 09/27/1989 Smokeless Tobacco: Never Comments:former smoker Alcohol Use Standard Drinks/Week Comments Not Currently 0 (1 standard drink = 0.6 oz pur e alcohol) PHQ-2 Answer Date Recorded PHQ-2 Score - If the patient scores above 3, please move on to questions 3-9 0 05/07/2022 Comments No Sex and Gender Information Value Date Recorded Sex Assigned at Female 11/22/2024 3:50 PM SALES PERFORMANCE ANALYST Legal Sex Female 7:43 PM CDT Gender Identity Female 11/17/2021 3:08 PM SALES PERFORMANCE ANALYST Sexual Orientation Straight 11/17/2021 3: 08 PM SALES PERFORMANCE ANALYST Occupation Industry Job Start Date Job End Date Not on file Not on file Not on file Not on file COVID-19 Exposure Response Date Recorded In the last 10 days, have willie bill been in contact with someone who was confirmed or suspected to have Coronavirus/COVID-19? No / Unsure 08/10/2022 1:23 PM SALES PERFORMANCE ANALYST documented as of this encounter Progress Notes * Trista Wynne - 08/14/2022 9:38 AM CST Mohsen Nagy, Yes if you would like to change his plan I would suggest calling the insurance company with the plans mentioned in this message. I apologize for any inconvenience this may have caused. Hope you have an enjoyable Thanksgiving. S PERFORMANCE ANALYST documented in this encounter Plan of Treatment Upcoming Encounters Date Type Department Care Team (Late st Contact Info) Description 02/13/2025 3:15 PM CDT Appointment [facility] Ultrasound [address] [place] [address] Kacey Vela MD [address] [place], [place] [id number] 04/09/2025 1:00 PM CDT [facility] [address] [place] [phone] Zaynab Cuadra APRN [address] [place] [address] 06/25/2025 1:00 PM CDT [facility] [address] [place] [address] Elvira Pagan MD [address] [place] [address] documented as of this encounter Visit Diagnoses Not on filedocumented in this encounter Additional Health Concerns Infection Onset Date Last Indicated Resolved Time COVID-19 Rule Out 12/24/2022 12/24/2022 12/24/2022 8:37 PM CDT COVID-19 Rule Out 11/22/2023 11/22/2023 11/22/2023 2:12 AM SALES PERFORMANCE ANALYST COVID-19 Confirmed 11/22/2023 11/22/2023 12:32 AM CDT documented as of this encounter Care Teams Clean Up Helper Banquet Relationship Specialty Start Date End Date Eda Nunn FNP- PCP - General Nurse Practitioner Family 08/05/21 Amanda Bañuelos, BULLET LUBRICATING MACHINE OPERATOR PCP - General NURSE PRACTITIONER 07/20/23 02/23/24 Heaven Frost NP [address] [place] [address] PCP - General NURSE PRACTITIONER 02/24/24 11/29/24 Ellen Greer MD [address] [place] [address] PCP - General FAMILY PRACTICE 11/30/24 documented as of this encounter
--- OUTSIDE RECORDS SUMMARY | 2025-02-12 15:50 | XMS_ITS | Encounter Summary ---
Author Organization [facility] Address [facility] [place] [address] Care Team Providers Care Downstairs Maid Name Role Phone Eda Nunn [facility] Primary Care Provider + Amanda Bañuelos PULP MAKER Primary Care Provider Heaven Shah PULP MAKER Primary Care Provider [phone] Ellen Greer MD Primary Care Provider [phone] Encounter Details Date Type Department Care Team (Late st Contact Info) Description 02/17/2023 [employer] Message Enc [facility] Medical Group Family & Internal Medicine [address] [address] Eda Nunn [facility] [address] [place] [address] Diarrhea with Blood Social History Tobacco Use Types Packs/Day Years Used Date Smoking Tobacco: Former Cigarettes 1 7 0 09/27/1982 - 09/27/1989 Passive Smoke Exposure: Never Smokeless Tobacco: Never Comments:former smoker Alcohol Use Standard Drinks/Week Comments Not Currently 0 (1 standard drink = 0.6 oz pur e alcohol) PHQ-2 Answer Date Recorded Patient Health Questionnaire-2 Score 0 11/27/2022 Comments No Sex and Gender Information Value Date Recorded Sex Assigned at Female 11/22/2024 3:50 PM IDENTIFICATION CLERK Legal Sex Female 7:43 PM CDT Gender Identity Female 11/17/2021 3:08 PM IDENTIFICATION CLERK Sexual Orientation Straight 11/17/2021 3: 08 PM IDENTIFICATION CLERK Occupation Industry Job Start Date Job End Date Not on file Not on file Not on file Not on file COVID-19 Exposure Response Date Recorded In the last 10 days, have yo u been in contact with someone who was confirmed or suspected to have Coronavirus/COVID-19? No / Unsure 02/17/2023 5:17 PM CDT documented as of this encounter Functional Status * Calculated C-SSRS Risk Score (Lifetime/Recent) Answer Date of Assessment Author Status No Risk Indicated 02/17/2023 5:28 PM CDT Phyllis Carroll RN Active * [place] Suicide Severity Rating Scale (Screener/Recent Self-Report) Question Answer Date of Assessment Author Status 1. Wish to be (Past 1 Month) No 02/17/2023 5:28 PM CDT Timmy Carroll RN Active 2. Non-Specific Active Suicidal Thoughts (Past 1 Month) No 02/17/2023 5:28 PM CDT Timmy Carroll RN Active 6. Suicidal Behavior (Lifetime) No 02/17/2023 5:28 PM CDT Timmy Carroll RN Active documented as of this encounter Progress Notes * Lu Tom MA - 02/17/2023 3:21 PM CDT Informed pt per Eda's recommendation that she should be seen. She V/U and will go to an urgent care. * Lu Tom MA - 02/17/2023 3:07 PM CDT Pt called back. Phone call dropped. Attempted to contact patient X2. Went straight to VM * Lu Tom MA - 02/17/2023 2:05 PM CDT LMOM documented in this encounter Plan of Treatment Upcoming Encounters Date Type Department Care Team (Late st Contact Info) Description 02/13/2025 3:15 PM CDT Appointment [facility] [address] [place] [address] Kacey Vela MD [address] [place] [address] 04/09/2025 1:00 PM CDT [facility] [address] [facility], [address] [place] [address] Zaynab Cuadra, ANTI TANK MISSILEMAN [address] [facility] [address] [place] [address] 06/25/2025 1:00 PM CDT [facility] [address], [address] [place] [address] Elvira Pagan MD [address] [place] [address] documented as of this encounter Visit Diagnoses Not on filedocumented in this encounter Additional Health Concerns Infection Onset Date Last Indicated Resolved Time COVID-19 Rule Out 11/22/2023 11/22/2023 11/22/2023 2:12 AM IDENTIFICATION CLERK COVID-19 Confirmed 11/22/2023 11/22/2023 12:32 AM CDT documented as of this encounter Care Teams Downstairs Maid Relationship Specialty Start Date End Date Eda Nunn FNP-BC PCP - General Nurse Practitioner Family 08/05/21 Amanda Bañuelos PULP MAKER PCP - General NURSE PRACTITIONER 07/20/23 02/23/24 Heaven Frost NP [address] [place] [address] PCP - General NURSE PRACTITIONER 02/24/24 11/29/24 Ellen Greer MD [address] [place] [address] PCP - General FAMILY PRACTICE 11/30/24 documented as of this encounter
--- OUTSIDE RECORDS SUMMARY | 2025-02-12 15:50 | XMS_ITS | Encounter Summary ---
Author Organization [facility] Address [facility] [place] [address] Care Team Providers Care Precision Honer Name Role Phone Ellen Greer MD Primary Care Provider [phone] Encounter Details Date Type Department Care Team (Late st Contact Info) Description 01/16/2025 MyChart Message Enc [facility] Medical [facility] Family Medicine [facility] [address] [place] [phone] Ellen Greer MD [address] [place] [phone] Continued Social History Tobacco Use Types Packs/Day Years Used Date Smoking Tobacco: Former Cigarettes 1 7 0 09/27/1982 - 08/27/1990 Passive Smoke Exposure: Never Smokeless Tobacco: Never Comments:former smoker Alcohol Use Standard Drinks/Week Comments Never 0 (1 standard drink = 0.6 oz pur e alcohol) PHQ-2 Answer Date Recorded Patient Health Questionnaire-2 Score 0 01/02/2025 Comments No Sex and Gender Information Value Date Recorded Sex Assigned at Female 11/22/2024 3:50 PM METALSMITH APPRENTICE Legal Sex Female 7:43 PM CDT Gender Identity Female 11/17/2021 3:08 PM METALSMITH APPRENTICE Sexual Orientation Straight 11/17/2021 3: 08 PM METALSMITH APPRENTICE Occupation Industry Job Start Date Job End Date Not on file Not on file Not on file Not on file documented as of this encounter Plan of Treatment Upcoming Encounters Date Type Department Care Team (Late st Contact Info) Description 02/13/2025 3:[address] [facility] [address] [place] [address] Kacey Vela MD [address] [place] [address] 04/09/2025 1:00 PM CDT Office Visit [facility] Multispecialty Care - [facility] [address] [place] [address] Zaynab Cuadra, VEST FINISHER [address] [place] [address] 06/25/2025 1:00 PM CDT [facility] [address] [place] [address] Elvira Pagan MD [address] [place] [address] documented as of this encounter Visit Diagnoses Not on filedocumented in this encounter Additional Health Concerns Assessment Noted Time PHQ-9 Depression Total Score: 4 12/01/19 25 1:02 PM METALSMITH APPRENTICE documented as of this encounter Care Teams Precision Honer Relationship Specialty Start Date End Date Ellen Greer MD [address] [place] [address] PCP - General FAMILY PRACTICE 11/30/24 documented as of this encounter
--- OUTSIDE RECORDS SUMMARY | 2025-02-12 15:50 | XMS_ITS | Clinical Summary ---
Author Organization [facility] Address [address] [place] [address] Phone Care Team Providers Care Mental Health Advanced Practice Nurse Name Role Phone Esperanza Manrique MD Primary Care Provider [phone] Allergies Active Allergy Reactions Criticality Noted Date [...] on file Legal Sex Female 10:25 AM FREEZING ROOM WORKER Gender Identity Not on file Sexual Orientation [...] (Adult) (1 - 1-dose 75+ series) 2023 SARS-COV-2 Immunization ( - 2023-25 season) 2024 Influenza Immunization (Seas on Ended) 2025 DTaP/Tdap/Td Immunization Discontinued 11/10/2022 TdaP Immunization Completed 11/10/2022 Colorectal Cancer Screening Discontinued Immunochemical Fecal Occult Blood Discontinued 023 Cologuard Discontinued Colonoscopy High Risk Discontinued Colonoscopy Discontinued Hepatitis B Immunization Aged Out No longer eligible based on patient's age to complete this topic Human Papillomavirus (HPV) Immunization Aged Out No longer eligible b ased on patient's age to complete this topic Meningococcal Immunization (ACWY) Aged Out No longer eligible based on patient's age to complete this topic Rotavirus Immunization Aged Out No lo nger eligible based on patient's age to complete this topic Insurance MEDICARE [facility] SENIOR SUPPLEMENTAL Care Teams Mental Health Advanced Practice Nurse Relationship Specialty [place] [address] [place] [address] PCP - General Internal Medicine 10/28/17
--- OUTSIDE RECORDS SUMMARY | 2025-02-12 15:50 | XMS_ITS | Encounter Summary ---
Author Organization [facility] Address [address] [place] [address] Care Team Providers Care Sheet Rocker Name Role Phone Kinana Mo SALES COACH Primary Care Provider Abiola DuvallNP Primary Care Provider Eda Nunn STONE POLISHER [facility] Primary Care Provider + Amanda Bañuelos SALES COACH Primary Care Provider Heaven Shah SALES COACH Primary Care Provider [phone] Ellen Greer MD Primary Care Provider [phone] Encounter Details Date Type Department Care Team (Late st Contact Info) Description 01/26/2019 CREEL CLEANER ONLY [facility] Medical Group Priority Care - [address] [place] [address] Scanned, Documents Social History Tobacco Use Types Packs/Day Years Used Date Smoking Tobacco: Former Cigarettes 1 7 983 - 1989 Smokeless Tobacco: Never Alcohol Use Standard Drinks/Week Comments No 0 (1 standard drink = 0.6 oz pur e alcohol) Comments No Sex and Gender Information Value Date Recorded Sex Assigned at Female 11/22/2024 3:50 PM FINISHED HARDWARE ERECTOR Legal Sex Female 7:43 PM CDT Gender Identity Female 11/17/2021 3:08 PM FINISHED HARDWARE ERECTOR Sexual Orientation Straight 11/17/2021 3: 08 PM FINISHED HARDWARE ERECTOR Occupation Industry Job Start Date Job End Date Not on file Not on file Not on file Not on file documented as of this encounter Progress Notes * Zscanned, Documents - 01/26/2019 12:00 AM CDT MEIR AGUILERA MD: ACCT: [id number] ADMIT/SERVICE DATE: 01/25/19 DISCHARGE DATE: : 1950 PT TYPE: REG CLI SEX: F ORD SITE: [facility] CHART DOCUMENT DATE COLLECTED: 01-25-2019 HOSPITAL NO: [id number] DATE RECEIVED: 01-25-2019 CYTOLOGY REPORT SPECIMEN SOURCE: CYST FLUID-RIGHT WRIST SPECIMEN DESCRIPTION: 1 ML YELLOW, CLOUDY, VERY MUCOID FLUID. CELL BLOCK MADE 01-25-19 GENERAL: NORMAL SQUAMOUS CELLS CELL BLOCK RESULTS: BENIGN SQUAMOUS CELLS COMMENT: THIN PREP: SCANTY BENIGN CELLS. DIAGNOSIS: NEGATIVE FOR MALIGNANT CELLS. ELECTRONICALLY SIGNED BY ODETTE GAUTHIER MD 01/26/2019 12:05 P / A / JW DOC NO: [id number] documented in this encounter Plan of Treatment Upcoming Encounters Date Type Department Care Team (Late st Contact Info) Description 02/13/2025 3:15 PM CDT Appointment [facility]ound [address] [place] [address] Kacey Vela MD [address] [place] [address] 04/09/2025 1:00 PM CDT Office Visit [facility] Multispecialty Care - [facility] [address] [place] [address] Zaynab Cuadra APRN [address] [place] [address] 06/25/2025 1:00 PM CDT Office Visit [facility] Multispecialty Care - [facility] [address] [facility], [address] [place] [address] Elvira Pagan MD 3 [place] [address] documented as of this encounter Visit Diagnoses Not on filedocumented in this encounter Additional Health Concerns Infection Onset Date Last Indicated Resolved Time COVID-19 Rule Out 12/24/2022 12/24/2022 12/24/2022 8:37 PM CDT COVID-19 Rule Out 11/22/2023 11/22/2023 11/22/2023 2:12 AM FINISHED HARDWARE ERECTOR COVID-19 Confirmed 11/22/2023 11/22/2023 12:32 AM CDT documented as of this encounter Care Teams Sheet Rocker Relationship Specialty Start Date End Date Kianna Mo NP PCP - General NURSE PRACTITIONER 09/21/18 07/11/20 Abiola Andrews APNP [address] [place] [address] PCP - General Nurse Practitioner Family 07/12/2008/04/21 Eda Nunn FNP- [address] [address] PCP - General Nurse Practitioner Family 08/05/21 Amanda Bañuelos SALES COACH [address] [place] [address] PCP - General NURSE PRACTITIONER 07/20/23 02/23/24 Heaven [place] [address] PCP - General NURSE PRACTITIONER 02/24/24 11/29/24 Ellen Greer MD [address] [place] [address] PCP - General FAMILY PRACTICE 11/30/24 documented as of this encounter
--- OUTSIDE RECORDS SUMMARY | 2025-02-12 15:50 | XMS_ITS | Encounter Summary ---
Author Organization [facility] Address [facility] [place] [address] Care Team Providers Care Aircraft Mechanic Electrical And Radio Name Role Phone Eda Nunn [facility] Primary Care Provider + Amanda Bañuelos SALES PROJECT ADMINISTRATOR Primary Care Provider Heaven Shah SALES PROJECT ADMINISTRATOR Primary Care Provider [phone] Ellen Greer MD Primary Care Provider [phone] Encounter Details Date Type Department Care Team (Late st Contact Info) Description 12/18/2021 Livevolt Message Enc [facility] Medical Group Family & Internal Medicine [address] [address] Eda Nunn [facility] [address] [place] [address] Inflamed nose Social History Tobacco Use Types Packs/Day Years Used Date Smoking Tobacco: Former Cigarettes 1 7 1 983 - 1989 Smokeless Tobacco: Never Alcohol Use Standard Drinks/Week Comments Not Currently 0 (1 standard drink = 0.6 oz pur e alcohol) PHQ-2 Answer Date Recorded PHQ-2 Score - If the patient scores above 3, please move on to questions 3-9 0 11/05/2020 Comments No Sex and Gender Information Value Date Recorded Sex Assigned at Female 11/22/2024 3:50 PM MACHINE FEED OPERATOR Legal Sex Female 7:43 PM CDT Gender Identity Female 11/17/2021 3:08 PM MACHINE FEED OPERATOR Sexual Orientation Straight 11/17/2021 3: 08 PM MACHINE FEED OPERATOR Occupation Industry Job Start Date Job End Date Not on file Not on file Not on file Not on file documented as of this encounter Progress Notes * Nancy Gutierrez RN - 12/29/2021 1:51 PM CDT Labs faxed to [facility] at [phone]. Waiting for confirmation. * BEL Dacosta - 12/29/2021 9:20 AM CDT Can order CBC with diff, BMP dx of dizziness. Recommend office evaluation for neuro exam. * Lu Tom MA - 12/24/2021 1:39 PM CDT Referral changed and referral team notified. * BEL Dacosta - 12/24/2021 10:49 AM CDT Please reroute dermatology referral to place listed below. documented in this encounter Plan of Treatment Upcoming Encounters Date Type Department Care Team (Late st Contact Info) Description 02/13/2025 3:15 PM CDT Appointment [facility] [address] [place] [place] [address] Kacey Vela MD [address] [place] [address] 04/09/2025 1:00 PM CDT Office Visit [facility] - [facility] [address] [place] [address] Zaynab Cuadra APRN [address] [place] [address] 06/25/2025 1:00 PM CDT Office Visit [facility] Multispecialty Care - [facility] [address], [address] [place] [address] Elvira Pagan MD 3 [place] [address] documented as of this encounter Visit Diagnoses Diagnosis Dizziness- Primary Dizziness and giddiness documented in this encounter Additional Health Concerns Infection Onset Date Last Indicated Resolved Time COVID-19 Rule Out 12/24/2022 12/24/2022 12/24/2022 8:37 PM CDT COVID-19 Rule Out 11/22/2023 11/22/2023 11/22/2023 2:12 AM MACHINE FEED OPERATOR COVID-19 Confirmed 11/22/2023 11/22/2023 12:32 AM CDT documented as of this encounter Care Teams Aircraft Mechanic Electrical And Radio Relationship Specialty Start Date End Date Eda Nunn FNP- PCP - General Nurse Practitioner Family 08/05/21 Amanda Bañuelos, SALES PROJECT ADMINISTRATOR PCP - General NURSE PRACTITIONER 07/20/23 02/23/24 Heaven Frost NP [address] [place] [address] PCP - General NURSE PRACTITIONER 02/24/24 11/29/24 Ellen Greer MD [address] [place] [address] PCP - General FAMILY PRACTICE 11/30/24 documented as of this encounter
--- OUTSIDE RECORDS SUMMARY | 2025-02-12 15:50 | XMS_ITS | Encounter Summary ---
Author Organization [facility] Address [address] [place] [address] Care Team Providers Care Filter Tank Tender Helper Head Name Role Phone Esperanza Manrique MD Primary Care Provider [phone] Kianna Mo PRIMARY CARE SALES REPRESENTATIVE Primary Care Provider Abiola DuvallNP Primary Care Provider [phone] Eda Nunn [facility] Primary Care Provider + Amanda Bañuelos PRIMARY CARE SALES REPRESENTATIVE Primary Care Provider Octavioa Heaven Vega PRIMARY CARE SALES REPRESENTATIVE Primary Care Provider [phone] Ellen Greer MD Primary Care Provider [phone] Encounter Details Date Type Department Care Team (Late st Contact Info) Description 05/18/2016 Abstract [facility] CONVERSION [address] [place], [place] [id number] , Generic Conversion, Social History Tobacco Use Types Packs/Day Years Used Date Smoking Tobacco: Never Assessed Comments Unknown Sex and Gender Information Value Date Recorded Sex Assigned at Female 11/22/2024 3:50 PM DISTRICT RECRUITER Legal Sex Female 7:43 PM CDT Gender Identity Female 11/17/2021 3:08 PM DISTRICT RECRUITER Sexual Orientation Straight 11/17/2021 3: 08 PM DISTRICT RECRUITER documented as of this encounter Plan of Treatment Upcoming Encounters Date Type Department Care Team (Late st Contact Info) Description 02/13/2025 3:[address] [facility] [place] [address] Kacey Vela MD [address] [place] [address] 04/09/2025 1:00 PM CDT Office Visit [facility] [address], [address] [place] [address] Zaynab Cuadra, ELECTRICAL ASSISTANT [address] [facility] [address] [place] [address] 06/25/2025 1:00 PM CDT Office Visit [facility] [address], [address] [place] [address] Elvira Pagan MD [address] [place] [address] documented as of this encounter Visit Diagnoses Not on filedocumented in this encounter Additional Health Concerns Infection Onset Date Last Indicated Resolved Time COVID-19 Rule Out 12/24/2022 12/24/2022 12/24/2022 8:37 PM CDT COVID-19 Rule Out 11/22/2023 11/22/2023 11/22/2023 2:12 AM DISTRICT RECRUITER COVID-19 Confirmed 11/22/2023 11/22/2023 12:32 AM CDT documented as of this encounter Care Teams Filter Tank Tender Helper Head Relationship Specialty Start Date End Date Esperanza Manrique MD PCP - General INTERNAL MEDICINE 01/21/18 09/20/18 Kianna Mo, PRIMARY CARE SALES REPRESENTATIVE PCP - General NURSE PRACTITIONER 09/21/18 07/11/20 Abiola Andrews APNP [address] [address] PCP - General Nurse Practitioner Family 07/12/2008/04/21 Eda Nunn FNP- [address] [address] PCP - General Nurse Practitioner Family 08/05/21 Amanda Bañuelos PRIMARY CARE SALES REPRESENTATIVE [address] [address] PCP - General NURSE PRACTITIONER 07/20/23 02/23/24 Heaven Frost NP [address] [place] [address] PCP - General NURSE PRACTITIONER 02/24/24 11/29/24 Ellen Greer MD [address] [place] [address] PCP - General FAMILY PRACTICE 11/30/24 documented as of this encounter
--- OUTSIDE RECORDS SUMMARY | 2025-02-12 15:50 | XMS_ITS | Encounter Summary ---
Author Organization [facility] Address [facility] [place] [address] Care Team Providers Care Funeral Director'S Assistant Name Role Phone Amanda Bañuelos NP Primary Care Provider Heaven Shah NP Primary Care Provider [phone] Ellen Greer MD Primary Care Provider [phone] Encounter Details Date Type Department Care Team (Late st Contact Info) Description 11/25/2023 MyCRijuvent Message Enc [facility] Family Medicine - [place] [address] [place] [address] Amanda Bañuelos, SYLVIE Covid follow up Social History Tobacco Use Types Packs/Day Years Used Date Smoking Tobacco: Former Cigarettes 1 7 0 09/27/1982 - 09/27/1989 Passive Smoke Exposure: Never Smokeless Tobacco: Never Comments:former smoker Alcohol Use Standard Drinks/Week Comments Not Currently 0 (1 standard drink = 0.6 oz pur e alcohol) PHQ-2 Answer Date Recorded Patient Health Questionnaire-2 Score 0 07/20/2023 Comments No Sex and Gender Information Value Date Recorded Sex Assigned at Female 11/22/2024 3:50 PM CARPET LAYER HELPER Legal Sex Female 7:43 PM CDT Gender Identity Female 11/17/2021 3:08 PM CARPET LAYER HELPER Sexual Orientation Straight 11/17/2021 3: 08 PM CARPET LAYER HELPER Occupation Industry Job Start Date Job End Date Not on file Not on file Not on file Not on file documented as of this encounter Plan of Treatment Upcoming Encounters Date Type Department Care Team (Late st Contact Info) Description 02/13/2025 3:15 PM CDT Appointment [facility] [address] [place] [address] Kacey Vela MD [address] [place] [address] 04/09/2025 1:00 PM CDT [facility] [address], [address] [place] [address] Zaynab Cuadra, MOTTLER OPERATOR [address] [facility] [address] [place] [address] 06/25/2025 1:00 PM CDT [facility] [address], [address] [place] [address] Elvira Pagan MD 3 [place] [address] documented as of this encounter Visit Diagnoses Not on filedocumented in this encounter Additional Health Concerns Infection Onset Date Last Indicated Resolved Time COVID-19 Confirmed 11/22/2023 11/22/2023 12:32 AM CDT Assessment Noted Time PHQ-9 Depression Total Score: 0 07/20/20 23 11:23 AM CDT documented as of this encounter Care Teams Funeral Director'S Assistant Relationship Specialty Start Date End Date Amanda Bañuelos NP PCP - General NURSE PRACTITIONER 07/20/23 02/23/24 [place] [address] PCP - General NURSE PRACTITIONER 02/24/24 11/29/24 Ellen Greer MD [address] [place] [address] PCP - General FAMILY PRACTICE 11/30/24 documented as of this encounter
--- OUTSIDE RECORDS SUMMARY | 2025-02-12 15:50 | XMS_ITS | Encounter Summary ---
Author Organization [facility] Address [facility] [place] [address] Care Team Providers Care Sheet Rock Applicator Name Role Phone Amanda Bañuelos NP Primary Care Provider Heaven Shah SAND SYSTEM OPERATOR Primary Care Provider [phone] Ellen Greer MD Primary Care Provider [phone] Encounter Details Date Type Department Care Team (Late st Contact Info) Description 09/08/2023 Launchupst Message Enc [facility] Group Family Medicine - [place] [address] [place] [phone] Amanda Bañuelos NP Local Cardroom Drawing Runner? Social History Tobacco Use Types Packs/Day Years [...] Sex Assigned at Female 11/22/2024 3:50 PM SINGLE NEEDLE TUFTING MACHINE OPERATOR Legal Sex Female 7:43 PM CDT Gender Identity Female 11/17/2021 3:08 PM SINGLE NEEDLE TUFTING MACHINE OPERATOR Sexual Orientation Straight 11/17/2021 3: 08 PM SINGLE NEEDLE TUFTING MACHINE OPERATOR Occupation Industry Job Start Date Job End Date Not on file Not on file Not on file Not on file documented as of this encounter Progress Notes * Charlette Tatum RN - 09/13/2023 9:38 AM CST I pended a referral to Amanda for her to review. LE NEEDLE TUFTING MACHINE OPERATOR * Adelina Rebekah Ribera - 09/09/2023 2:47 PM CST Patient stopped by the office and wants to know status of her Cardroom Drawing Runner referral. She said that Amanda said she was going to check on one with [facility]. Patient was going to one in [place], but wants someone closer. Please follow up with patient. LE NEEDLE TUFTING MACHINE OPERATOR documented in this encounter Plan of Treatment Upcoming Encounters Date Type Department Care Team (Late st Contact Info) Description 02/13/2025 3:15 PM CDT Appointment [facility] [address] Kacey Vela MD [address] [place] [address] 04/09/2025 1:00 PM CDT Office Visit [facility] Multispecialty Care - [facility] [address] [facility], [address] [place] [address] Zaynab Cuadra APRN [address] [facility] [address] [place] [address] 06/25/2025 1:00 PM CDT Office Visit [facility] Multispecialty Care - [facility] [address], [address] [place] [address] Elvira Pagan MD [address] [place] [address] documented as of this encounter Visit Diagnoses Not on filedocumented in this encounter Additional Health Concerns Infection Onset Date Last Indicated Resolved Time COVID-19 Rule Out 11/22/2023 11/22/2023 11/22/2023 2:12 AM SINGLE NEEDLE TUFTING MACHINE OPERATOR COVID-19 Confirmed 11/22/2023 11/22/2023 12:32 AM CDT Assessment Noted Time PHQ-9 Depression Total Score: 0 07/20/20 11:23 AM CDT documented as of this encounter Care Teams Sheet Rock Applicator Relationship Specialty Start Date End Date Amanda Bañuelos, SAND SYSTEM OPERATOR PCP - General NURSE PRACTITIONER 07/20/23 02/23/24 Heaven Frost NP [address] [place] [address] PCP - General NURSE PRACTITIONER 02/24/24 11/29/24 Ellen Greer MD [address] [place] [address] PCP - General FAMILY PRACTICE 11/30/24 documented as of this encounter
--- OUTSIDE RECORDS SUMMARY | 2025-02-12 15:50 | XMS_ITS | Encounter Summary ---
Author Organization [facility] Address [facility] [place] [address] Care Team Providers Care Heavy Equipment Engine Mechanic Name Role Phone Abiola Andrews Primary Care Provider [phone] Eda Nunn [facility] Primary Care Provider + Amanda Bañuelos CHIEF LEARNING OFFICER Primary Care Provider Unavail Heaven Vega CHIEF LEARNING OFFICER Primary Care Provider [phone] Ellen Greer MD Primary Care Provider [phone] Encounter Details Date Type Department Care Team (Late st Contact Info) Description 02/05/2021 [employer] Message Enc [facility] Medical Group Family & Internal Medicine [address] [address] Eda Nunn [facility] [address] [place] [address] RE: Follow Up/Update Social History Tobacco Use Types Packs/Day Years [...] Sex Assigned at Female 11/22/2024 3:50 PM FISH SALTER Legal Sex Female 7:43 PM CDT Gender Identity Female 11/17/2021 3:08 PM FISH SALTER Sexual Orientation Straight 11/17/2021 3: 08 PM FISH SALTER Occupation Industry Job Start Date Job End Date Not on file Not on file Not on file Not on file COVID-19 Exposure Response Date Recorded In the last month, have you been in contact with someone who was confirmed or suspected to have Coronavirus / COVID-19? No / Unsure 02/06/2021 12:23 PM CDT documented as of this encounter Plan of Treatment Upcoming Encounters Date Type Department Care Team (Late st Contact Info) Description 02/13/2025 3:15 PM CDT Appointment [facility] Ultrasound [address] [place] [address] Kacey Vela MD [address] [place] [id number] 04/09/2025 1:00 PM CDT Office Visit [facility] [address] [facility], [address] [place] [address] Zaynab Cuadra APRN [address] [place] [address] 06/25/2025 1:00 PM CDT [facility] [address] [facility], [address] [place] [address] Elvira Pagan MD [address] [place] [address] documented as of this encounter Visit Diagnoses Not on filedocumented in this encounter Additional Health Concerns Infection Onset Date Last Indicated Resolved Time COVID-19 Rule Out 12/24/2022 12/24/2022 12/24/2022 8:37 PM CDT COVID-19 Rule Out 11/22/2023 11/22/2023 11/22/2023 2:12 AM FISH SALTER COVID-19 Confirmed 11/22/2023 11/22/2023 12:32 AM CDT documented as of this encounter Care Teams Heavy Equipment Engine Mechanic Relationship Specialty Start Date End Date Abiola Andrews APNP [address] [address] PCP - General Nurse Practitioner Family 07/12/2008/04/21 Eda Nunn, GLENIS- [address] [address] PCP - General Nurse Practitioner Family 08/05/21 Amanda Bañuelos, CHIEF LEARNING OFFICER [address] [address] PCP - General NURSE PRACTITIONER 07/20/23 02/23/24 Heaven Frost NP [address] [place] [address] PCP - General NURSE PRACTITIONER 02/24/24 11/29/24 Ellen Greer MD [facility] [place] [address] PCP - General FAMILY PRACTICE 11/30/24 documented as of this encounter
--- OUTSIDE RECORDS SUMMARY | 2025-02-12 15:50 | XMS_ITS | Encounter Summary ---
Author Organization [facility] Address [address] [place] [address] Care Team Providers Care Patternmaker Helper Name Role Phone Heaven Frost NP Primary Care Provider [phone] Ellen Greer MD Primary Care Provider [phone] Encounter Details Date Type Department Care Team (Late st Contact Info) Description 11/20/2024 [employer] Message Enc [facility] Medical Group Family Medicine - [place] [address] [place] [address] Heaven Frost NP [address] [place] [address] Looking for B12 test results Social History Tobacco Use Types Packs/Day Years Used Date Smoking Tobacco: Former Cigarettes 1 7 0 09/27/1982 - 08/27/1990 Passive Smoke Exposure: Never Smokeless Tobacco: Never Comments:former smoker Alcohol Use Standard Drinks/Week Comments Never 0 (1 standard drink = 0.6 oz pur e alcohol) PHQ-2 Answer Date Recorded Patient Health Questionnaire-2 Score 0 10/27/2024 Comments No Sex and Gender Information Value Date Recorded Sex Assigned at Female 11/22/2024 3:50 PM RN REHABILITATION Legal Sex Female 7:43 PM CDT Gender Identity Female 11/17/2021 3:08 PM RN REHABILITATION Sexual Orientation Straight 11/17/2021 3: 08 PM RN REHABILITATION Occupation Industry Job Start Date Job End Date Not on file Not on file Not on file Not on file documented as of this encounter Plan of Treatment Upcoming Encounters Date Type Department Care Team (Late st Contact Info) Description 02/13/2025 3:15 PM CDT Appointment [facility] [address] [place] [address] Kacey Vela MD [address] [place] [address] 04/09/2025 1:00 PM CDT [facility] [address] [facility], [address] [place] [address] Zaynab Cuadra, FURNACE COOLER [address] [facility] [address] [place] [address] 06/25/2025 1:00 PM CDT [facility] 3 [facility], [address] [place] [address] Elvira Pagan MD 3 [place] [address] documented as of this encounter Visit Diagnoses Not on filedocumented in this encounter Additional Health Concerns Assessment Noted Time PHQ-9 Depression Total Score: 0 06/23/20 24 3:44 PM CDT documented as of this encounter Care Teams Patternmaker Helper Relationship Specialty Start Date End Date Heaven [place] [address] PCP - General NURSE PRACTITIONER 02/24/24 11/29/24 Ellen Greer MD [facility] [place] [address] PCP - General FAMILY PRACTICE 11/30/24 documented as of this encounter
--- OUTSIDE RECORDS SUMMARY | 2025-02-12 15:50 | XMS_ITS | Encounter Summary ---
Author Organization [facility] Address [facility]6 [place] [address] Care Team Providers Care Technology Trainer Name Role Phone Abiola Andrews Primary Care Provider [phone] Eda Nunn [facility] Primary Care Provider + Amanda Bañuelos MANAGER MARITIME Primary Care Provider Unavaila Heaven Vega MANAGER MARITIME Primary Care Provider [phone] Ellen Greer MD Primary Care Provider [phone] Encounter Details Date Type Department Care Team (Late st Contact Info) Description 12/20/2020 Spoqa Message [facility] [address] [place] [address] Eda Nunn [facility] [address] [place] [address] RE: Follow Up/Update Social History [...] Sex Assigned at Female 11/22/2024 3:50 PM TRUCK CRANE OPERATOR Legal Sex Female 7:43 PM CDT Gender Identity Female 11/17/2021 3:08 PM TRUCK CRANE OPERATOR Sexual Orientation Straight 11/17/2021 3: 08 PM TRUCK CRANE OPERATOR Occupation Industry Job Start Date Job End Date Not on file Not on file Not on file Not on file COVID-19 Exposure Response Date Recorded In the last month, have you been in contact with someone who was confirmed or suspected to have Coronavirus / COVID-19? No / Unsure 12/10/2020 3:46 PM CDT documented as of this encounter Plan of Treatment Upcoming Encounters Date Type Department Care Team (Late st Contact Info) Description 02/13/2025 3:15 PM CDT Appointment [facility] Ultrasound [address] [place] [address] Kacey Vela MD [address] [place] [address] 04/09/2025 1:00 PM CDT Office Visit [facility] 3 [facility], [address] [place] [address] Zaynab Cuadra APRN [address] [facility] [address] [place] [address] 06/25/2025 1:00 PM CDT [facility] [address] [facility], [address] [place] [address] Elvira Pagan MD 3 [place] [address] documented as of this encounter Visit Diagnoses Diagnosis Left ear pain- Primary Otalgia, unspecified documented in this encounter Additional Health Concerns Infection Onset Date Last Indicated Resolved Time COVID-19 Rule Out 12/24/2022 12/24/2022 12/24/2022 8:37 PM CDT COVID-19 Rule Out 11/22/2023 11/22/2023 11/22/2023 2:12 AM TRUCK CRANE OPERATOR COVID-19 Confirmed 11/22/2023 11/22/2023 12:32 AM CDT documented as of this encounter Care Teams Technology Trainer Relationship Specialty Start Date End Date Abiola Andrews APNP [address] [address] PCP - General Nurse Practitioner Family 07/12/2008/04/21 Eda Nunn, GLENIS- [address] [address] PCP - General Nurse Practitioner Family 08/05/21 Amanda Bañuelos, MANAGER MARITIME [address] [address] PCP - General NURSE PRACTITIONER 07/20/23 02/23/24 Heaven Frost NP [address] [place] [address] PCP - General NURSE PRACTITIONER 02/24/24 11/29/24 Ellen Greer MD [facility]6 [place] [address] PCP - General FAMILY PRACTICE 11/30/24 documented as of this encounter
--- OUTSIDE RECORDS SUMMARY | 2025-02-12 15:50 | XMS_ITS | Encounter Summary ---
Author Organization [facility] Address [address] [place] [address] Care Team Providers Care Manager Sales Name Role Phone Heaven Frost NP Primary Care Provider [phone] Ellen Greer MD Primary Care Provider [phone] Encounter Details Date Type Department Care Team (Late st Contact Info) Description 03/21/[address] [facility] Medical [facility] Multispecialty Care - [facility] [address] [facility], [address] [place] [address] Elvira Pagan MD 3 [place] [address] genetics Social History Tobacco Use Types Packs/Day Years Used Date Smoking Tobacco: Former Cigarettes 1 7 0 09/27/1982 - 08/27/1990 Passive Smoke Exposure: Never Smokeless Tobacco: Never Comments:former smoker Alcohol Use Standard Drinks/Week Comments Never 0 (1 standard drink = 0.6 oz pur e alcohol) PHQ-2 Answer Date Recorded Patient Health Questionnaire-2 Score 0 03/22/2024 Comments No Sex and Gender Information Value Date Recorded Sex Assigned at Female 11/22/2024 3:50 PM MILITARY SCIENCE INSTRUCTOR Legal Sex Female 7:43 PM CDT Gender Identity Female 11/17/2021 3:08 PM MILITARY SCIENCE INSTRUCTOR Sexual Orientation Straight 11/17/2021 3: 08 PM MILITARY SCIENCE INSTRUCTOR Occupation Industry Job Start Date Job End Date Not on file Not on file Not on file Not on file documented as of this encounter Functional Status * Over the past 2 weeks, how often have you been bothered by any of the following problems? Question Answer Date of Assessment Author Status Little interest or pleasure in doing things Not at all 03/22/2024 1:24 PM CDT Anais Hagan MA Acti ve Feeling down, depressed, or hopeless Not at all 03/22/2024 1:24 PM CDT Anais Hagan MA Active Patient Health Questionnaire-2 Score 0 03/22/2024 1:24 PM CDT Anais Hagan M A Active * If you checked off any problems on this questionnaire so far, Question Answer Date of Assessment Author Status How difficult have these problems made it for you to do your work, take care of things at home, or get along with other people? Not difficult at all 03/22/2024 1:24 PM CDT Anais Hagan MA Active documented as of this encounter Plan of Treatment Upcoming Encounters Date Type Department Care Team (Late st Contact Info) Description 02/13/2025 3:15 PM CDT Appointment [facility] Ultrasound [address] [place] [address] Kacey Vela MD [address] [place], [place] [id number] 04/09/2025 1:00 PM CDT Office Visit [facility] Multispecialty Care - [facility] [address] [facility] [address], [address] [place] [address] Zaynab Cuadra APRN [address] [address] [place] [address] 06/25/2025 1:00 PM CDT [facility] [address] [facility], [address] [place] [address] Elvira Pagan MD 3 [place] [address] documented as of this encounter Visit Diagnoses Not on filedocumented in this encounter Additional Health Concerns Assessment Noted Time PHQ-9 Depression Total Score: 0 07/20/20 23 11:23 AM CDT documented as of this encounter Care Teams Manager Sales Relationship Specialty Start Date End Date Heaven Frost NP [address] [place] [address] PCP - General NURSE PRACTITIONER 02/24/24 11/29/24 Ellen Greer MD [address] [place] [address] PCP - General FAMILY PRACTICE 11/30/24 documented as of this encounter
--- OUTSIDE RECORDS SUMMARY | 2025-02-12 15:50 | XMS_ITS | Encounter Summary ---
Author Organization [facility] Address [facility]6 [place] [address] Care Team Providers Care Zumba Instructor Name Role Phone Ellen Greer MD Primary Care Provider [phone] Encounter Details Date Type Department Care Team (Late st Contact Info) Description 02/12/2025 10:58 AM CDT Hospital Encounter [facility] [place] [address] Kacey Vela MD [address] [place] [address] Social History Tobacco Use Types Packs/Day Years [...] Sex Assigned at Female 11/22/2024 3:50 PM EXHIBITIONS AND COLLECTIONS MANAGER Legal Sex Female 7:43 PM CDT Gender Identity Female 11/17/2021 3:08 PM EXHIBITIONS AND COLLECTIONS MANAGER Sexual Orientation Straight 11/17/2021 3: 08 PM EXHIBITIONS AND COLLECTIONS MANAGER Occupation Industry Job Start Date Job End Date Not on file Not on file Not on file Not on file documented as of this encounter Plan of Treatment Upcoming Encounters Date Type Department Care Team (Late st Contact Info) Description 02/13/2025 3:[address] [facility] Ultrasound [address] [facility] [place] [address] Kacey Vela MD [address] [place] [address] 04/09/2025 1:00 PM CDT [facility] 3 [facility], [address] [place] [address] Zaynab Cuadra, RINKMAN [address] [facility] [address] [place] [address] 06/25/2025 1:00 PM CDT [facility] 3 [facility], [address] [place] [address] Elvira Pagan MD 3 [place] [address] Pending Results Name Type Priority Associated Diagnoses Date /Time CREATININE URINE 24 HR Lab Routine Hypercalcinuria 02/12/2025 8:00 AM CDT Scheduled Orders Name Type Priority Associated Diagnoses Orde r Schedule CREATININE URINE 24 HR Lab Routine Hypercalcinuria Once for 1 Occurrences starting 02/12/2025 until 02/12/2025 documented as of this encounter Procedures Procedure Name Priority Date/Time Associated Diagnosis Comments CALCIUM URINE 24 HR Routine 02/12/2025 8 :00 AM CDT Hypercalcinuria documented in this encounter Results * (ABNORMAL) CALCIUM URINE 24 HR (02/12/2025 8:00 AM CDT) CALCIUM (U) 11.5 MG/DL 02/12/2025 2:44 PM CDT [facility] Comment:REFERENCE RANGE NOT ESTABLISHED CALC 24HR CA (U) 356.5(H) 42.0 - 353.0 MG/24HR 02/12/2025 2:44 PM CDT [facility] Comment:COLLECTION ONLY 23 H OURS, REFERENCE RANGE DOES NOT APPLY VOLUME (U) 3,100 ML 02/12/2025 2:27 PM CDT [facility] URINE SPECIMEN / Unknown 02/12/2025 8:00 AM CDT us Kacey Vela MD URINE ORDERABLES Final Result [facility] [address] [place] [address], [id number] documented in this encounter Visit Diagnoses Diagnosis Hypercalcinuria Unspecified disorders of calcium metabolism documented in this encounter Additional Health Concerns Assessment Noted Time PHQ-9 Depression Total Score: 4 12/01/19 25 1:02 PM EXHIBITIONS AND COLLECTIONS MANAGER documented as of this encounter Care Teams Zumba Instructor Relationship Specialty Start Date End Date Ellen Greer MD [address] [place] [address] PCP - General FAMILY PRACTICE 11/30/24 documented as of this encounter
--- OUTSIDE RECORDS SUMMARY | 2025-02-12 15:50 | XMS_ITS | Encounter Summary ---
Author Organization [facility] Address [facility] [place] [address] Care Team Providers Care Screener Operator Name Role Phone Ellen Greer MD Primary Care Provider [phone] Encounter Details Date Type Department Care Team (Late st Contact Info) Description 01/16/2025 MyChart Message Enc [facility] Medical [facility] Family Medicine [facility] [address] [place] [phone] Ellen Greer MD [address] [place] [address] Continued Social History Tobacco Use Types [...] Sex Assigned at Female 11/22/2024 3:50 PM NURSE EMERGENCY ROOM Legal Sex Female 7:43 PM CDT Gender Identity Female 11/17/2021 3:08 PM NURSE EMERGENCY ROOM Sexual Orientation Straight 11/17/2021 3: 08 PM NURSE EMERGENCY ROOM Occupation Industry Job Start Date Job End Date Not on file Not on file Not on file Not on file documented as of this encounter Plan of Treatment Upcoming Encounters Date Type Department Care Team (Late st Contact Info) Description 02/13/2025 3:[address] [facility] [place] [address] Kacey Vela MD [address] [place] [address] 04/09/2025 1:00 PM CDT Office Visit [facility]pecialty Care - [facility] [address] [place] [address] Zaynab Cuadra, RETAIL LOAN OFFICER [address] [place] [address] 06/25/2025 1:00 PM CDT [facility] [address] [place] [address] Elvira Pagan MD [address] [place] [address] documented as of this encounter Visit Diagnoses Not on filedocumented in this encounter Additional Health Concerns Assessment Noted Time PHQ-9 Depression Total Score: 4 12/01/19 25 1:02 PM NURSE EMERGENCY ROOM documented as of this encounter Care Teams Screener Operator Relationship Specialty Start Date End Date Ellen Greer MD [address] [place] [address] PCP - General FAMILY PRACTICE 11/30/24 documented as of this encounter
--- OUTSIDE RECORDS SUMMARY | 2025-02-12 15:50 | XMS_ITS | Encounter Summary ---
Author Organization [facility] Address [facility] [place] [address] Care Team Providers Care Hard Hat Diver Name Role Phone Ellen Greer MD Primary Care Provider [phone] Encounter Details Date Type Department Care Team (Late st Contact Info) Description 01/16/2025 [employer] Message Enc [facility] Medical [facility] Medicine [facility] [address] [place] [phone] Ellen Greer MD [address] [place] [address] [address] [address] Greer. Social History Tobacco Use Types Packs/Day Years [...] Sex Assigned at Female 11/22/2024 3:50 PM CUSHION MAKER Legal Sex Female 7:43 PM CDT Gender Identity Female 11/17/2021 3:08 PM CUSHION MAKER Sexual Orientation Straight 11/17/2021 3: 08 PM CUSHION MAKER Occupation Industry Job Start Date Job End Date Not on file Not on file Not on file Not on file documented as of this encounter Plan of Treatment Upcoming Encounters Date Type Department Care Team (Late st Contact Info) Description 02/13/2025 3:15 PM CDT Appointment [facility] [address] [place] [address] Kacey Vela MD [address] [place] [address] 04/09/2025 1:00 PM CDT [facility] [address], [address] [place] [address] Zaynab Cuadra, WELCOME HOSTESS [address] [facility] [address] [address] [place] [address] 06/25/2025 1:00 PM CDT [facility] 3 [facility], [address] [place] [address] Elvira Pagan MD 3 [place] [address] documented as of this encounter Visit Diagnoses Not on filedocumented in this encounter Additional Health Concerns Assessment Noted Time PHQ-9 Depression Total Score: 4 12/01/19 25 1:02 PM CUSHION MAKER documented as of this encounter Care Teams Hard Hat Diver Relationship Specialty Start Date End Date Ellen Greer MD [address] [place] [address] PCP - General FAMILY PRACTICE 11/30/24 documented as of this encounter
--- OUTSIDE RECORDS SUMMARY | 2025-02-12 15:50 | XMS_ITS | Encounter Summary ---
Author Organization [facility] Address Replaced by [facility] [place] [address] Care Team Providers Care Upholstery Tech Name Role Phone Ellen Greer MD Primary Care Provider [phone] Encounter Details Date Type Department Care Team (Late st Contact Info) Description 01/16/2025 MyChart Message Enc [facility] Medical [facility] Medicine [facility] [address] [place] [phone] Ellen Greer MD [address] [place] [address] Genetics results Social History Tobacco Use Types Packs/Day [...] Sex Assigned at Female 11/22/2024 3:50 PM CRITICAL CARE NURSE SPECIALIST Legal Sex Female 7:43 PM CDT Gender Identity Female 11/17/2021 3:08 PM CRITICAL CARE NURSE SPECIALIST Sexual Orientation Straight 11/17/2021 3: 08 PM CRITICAL CARE NURSE SPECIALIST Occupation Industry Job Start Date Job End Date Not on file Not on file Not on file Not on file documented as of this encounter Plan of Treatment Upcoming Encounters Date Type Department Care Team (Late st Contact Info) Description 02/13/2025 3:15 PM CDT Appointment [facility] Ultrasound [address] [facility] [place] [address] Kacey Vela MD [address] [place] [address] 04/09/2025 1:00 PM CDT [facility] [address] [facility], [address] [place] [address] Zaynab Cuadra, PARTS SALES ADVISOR [address] [place] [address] 06/25/2025 1:00 PM CDT [facility] 3 [facility], [address] [place] [address] Elvira Pagan MD 3 [place] [address] documented as of this encounter Visit Diagnoses Not on filedocumented in this encounter Additional Health Concerns Assessment Noted Time PHQ-9 Depression Total Score: 4 12/01/19 25 1:02 PM CRITICAL CARE NURSE SPECIALIST documented as of this encounter Care Teams Upholstery Tech Relationship Specialty Start Date End Date Ellen Greer MD [address] [place] [address] PCP - General FAMILY PRACTICE 11/30/24 documented as of this encounter
--- OUTSIDE RECORDS SUMMARY | 2025-02-12 15:50 | XMS_ITS | Encounter Summary ---
Author Organization [facility] System Address [facility] [place] [address] Care Team Providers Care Line Locator Name Role Phone Esperanza Manrique MD Primary Care Provider + [phone] Kianna Mo TRANSMITTER SUPERVISOR Primary Care Provider Abiola DuvallNP Primary Care Provider [phone] Eda Nunn [facility] Primary Care Provider + Amanda Bañuelos TRANSMITTER SUPERVISOR Primary Care Provider Octavioa Heaven Vega TRANSMITTER SUPERVISOR Primary Care Provider [phone] Ellen Greer MD Primary Care Provider [phone] Encounter Details Date Type Department Care Team (Late st Contact Info) Description 05/31/[address] [facility] CONVERSION [id number] [facility] [place] [address] , Generic Conversion, Social History Tobacco Use Types Packs/Day Years Used Date Smoking Tobacco: Former Cigarettes 1 7 3 - 1989 Smokeless Tobacco: Never Alcohol Use Standard Drinks/Week Comments No 0 (1 standard drink = 0.6 oz pur e alcohol) Comments No Sex and Gender Information Value Date Recorded Sex Assigned at Female 11/22/2024 3:50 PM SANITATION ASSOCIATE Legal Sex Female 7:43 PM CDT Gender Identity Female 11/17/2021 3:08 PM SANITATION ASSOCIATE Sexual Orientation Straight 11/17/2021 3: 08 PM SANITATION ASSOCIATE Occupation Industry Job Start Date Job End Date Not on file Not on file Not on file Not on file documented as of this encounter Plan of Treatment Upcoming Encounters Date Type Department Care Team (Late st Contact Info) Description 02/13/2025 3:15 PM CDT Appointment [facility] Ultrasound ONE [facility] [place] [address] Kacey Vela MD [address] [place] [address] 04/09/2025 1:00 PM CDT [facility] [address] [facility], [address] [place] [address] Zaynab Cuadra APRN 3 [facility] [address] [place] [address] 06/25/2025 1:00 PM CDT [facility] 3 [facility], [address] [place] [address] Elvira Pagan MD 3 [place] [address] documented as of this encounter Visit Diagnoses Not on filedocumented in this encounter Additional Health Concerns Infection Onset Date Last Indicated Resolved Time COVID-19 Rule Out 12/24/2022 12/24/2022 12/24/2022 8:37 PM CDT COVID-19 Rule Out 11/22/2023 11/22/2023 11/22/2023 2:12 AM SANITATION ASSOCIATE COVID-19 Confirmed 11/22/2023 11/22/2023 12:32 AM CDT documented as of this encounter Care Teams Line Locator Relationship Specialty Start Date End Date Esperanza Manrique MD PCP - General INTERNAL MEDICINE 01/21/18 09/20/18 Kianna Mo, TRANSMITTER SUPERVISOR PCP - General NURSE PRACTITIONER 09/21/18 07/11/20 Abiola Andrews APNP [address] [place] [address] PCP - General Nurse Practitioner Family 07/12/2008/04/21 Eda Nunn, GLENIS- [address] [address] PCP - General Nurse Practitioner Family 08/05/21 Amanda Bañuelos TRANSMITTER SUPERVISOR [address] [place] [address] PCP - General NURSE PRACTITIONER 07/20/23 02/23/24 [place] [address] PCP - General NURSE PRACTITIONER 02/24/24 11/29/24 Ellen Greer MD [address] [place] [address] PCP - General FAMILY PRACTICE 11/30/24 documented as of this encounter
--- OUTSIDE RECORDS SUMMARY | 2025-02-12 15:50 | XMS_ITS | Encounter Summary ---
Author Organization [facility] System Address [facility] [place] [address] Care Team Providers Care Preschool Program Director Name Role Phone Abiola Andrews Primary Care Provider [phone] Eda Nunn [facility] Primary Care Provider + Amanda Bañuelos TILE SPRAYER Primary Care Provider Unavail Heaven Vega TILE SPRAYER Primary Care Provider [phone] Ellen Greer MD Primary Care Provider [phone] Encounter Details Date Type Department Care Team (Late st Contact Info) Description 04/14/2021 Levels Beyondt Message Enc [facility] Medical Group Family & Internal Medicine [address] [address] Eda Nunn [facility] [address] [place] [address] RE: Question Social History Tobacco Use Types Packs/Day Years [...] Sex Assigned at Female 11/22/2024 3:50 PM SHOESHINER Legal Sex Female 7:43 PM CDT Gender Identity Female 11/17/2021 3:08 PM SHOESHINER Sexual Orientation Straight 11/17/2021 3: 08 PM SHOESHINER Occupation Industry Job Start Date Job End Date Not on file Not on file Not on file Not on file COVID-19 Exposure Response Date Recorded In the last month, have you been in contact with someone who was confirmed or suspected to have Coronavirus / COVID-19? No / Unsure 04/14/2021 12:53 PM CDT documented as of this encounter Plan of Treatment Upcoming Encounters Date Type Department Care Team (Late st Contact Info) Description 02/13/2025 3:15 PM CDT Appointment [facility] Ultrasound [address] [facility] [place] [address] Kacey Vela MD [address] [place] [id number] 04/09/2025 1:00 PM CDT Office Visit [facility] 3 [facility], [address] [place] [address] Zaynab Cuadra APRN [address] [facility] [address] [place] [address] 06/25/2025 1:00 PM CDT [facility] 3 [facility], [address] [place] [address] Elvira Pagan MD 3 [place] [address] documented as of this encounter Visit Diagnoses Not on filedocumented in this encounter Additional Health Concerns Infection Onset Date Last Indicated Resolved Time COVID-19 Rule Out 12/24/2022 12/24/2022 12/24/2022 8:37 PM CDT COVID-19 Rule Out 11/22/2023 11/22/2023 11/22/2023 2:12 AM SHOESHINER COVID-19 Confirmed 11/22/2023 11/22/2023 12:32 AM CDT documented as of this encounter Care Teams Preschool Program Director Relationship Specialty Start Date End Date Abiola Andrews APNP [address] [address] PCP - General Nurse Practitioner Family 07/12/2008/04/21 Eda Nunn, GLENIS- [address] [address] PCP - General Nurse Practitioner Family 08/05/21 Amanda Bañuelos, TILE SPRAYER [address] [address] PCP - General NURSE PRACTITIONER 07/20/23 02/23/24 Heaven Frost NP [address] [place] [address] PCP - General NURSE PRACTITIONER 02/24/24 11/29/24 Ellen Greer MD [address] [place] [address] PCP - General FAMILY PRACTICE 11/30/24 documented as of this encounter
--- OUTSIDE RECORDS SUMMARY | 2025-02-12 15:50 | XMS_ITS | Clinical Summary ---
Author Organization [facility] Address [address] [place] [address] Care Team Providers Care Horseradish Maker Name Role Phone Heaven Frost KANG Primary Care Provider [phone] Source Comments [facility],non-owned Affiliates and Associated Physician Practices is amultiple site organization consisting of ambulatory clinics and hospital sitesin [place], [place], [place] and [place]. This disclosure is being madepursuant to the Care Everywhere program and may not contain all information available regarding this patient. Last updated 18.[facility] Allergies Active Allergy Reactions Criticality Noted Date Comments Novocain Headache,Nausea and/or Vomiting 04/27 Medications * Be aware that medications may not be up to date on this document. Alwaysverify current medications with the patient. HYDROcodone-acet aminophen ([place]) 7.5-325 MG tablet Take 1 (one) tablet by mouth every 6 hours as needed for Pain Active tamsulosin (Flomax) 0.4 MG capsule Take 1 (one) capsule by mouth once daily At the same time every day after a meal. Active vitamin D3 (Cholecalciferol ) 10 MCG (400 UNIT) tablet Take 1 (one) tablet by mouth once daily Active POTASSIUM BICARBONATE PO Patient takes K+2 potassium tabs, 300 mg TID. (From [employer]. ) Active Social History Tobacco Use Types Packs/Day Years Used Date Smoking Tobacco: Never Assessed Comments Unknown Sex and Gender Information Value Date Recorded Sex Assigned at Not on file Legal Sex Female 1:08 PM CDT Gender Identity Female 03/27/2024 1:08 PM CDT [...] - 1-dose 75+ series) 2023 COVID-19 VACCINE ( - 2023-2 5 season) 2024 DEPRESSION SCREENING 09/27/2024 INFLUENZA VACCINE (Season Ended) 2025 HEPATITIS B VACCINE Aged Out No longe r eligible based on patient's age to complete this topic HIB VACCINE Aged Out No longer eligi ble based on patient's age to complete this topic HPV VACCINE Aged Out No longer eligi ble based on patient's age to complete this topic MENINGOCOCCAL (Group B) VACC INE SHARED DECISION-MAKING Aged Out No longer eligibl e based on patient's age to complete this topic MENINGOCOCCAL GROUPS A/C/Y/W VACCINE Aged Out No longer eligible b ased on patient's age to complete this topic Insurance MEDICARE AETNA Care Teams Horseradish Maker Relationship Specialty Start Date End Date Heaven Frost APRN-ALEN [address] [place] [address] PCP - General Allergy and Immunology 05/10/24
--- OUTSIDE RECORDS SUMMARY | 2025-02-12 15:50 | XMS_ITS | Encounter Summary ---
Author Organization [facility] System Address [facility] [place] [address] Care Team Providers Care Tractor Crane Operator Name Role Phone Esperanza Manrique MD Primary Care Provider [phone] Kianna Mo REHAB AIDE Primary Care Provider Abiola Duvall APNP Primary Care Provider [phone] Eda Nunn [facility] Primary Care Provider + Amanda Bañuelos REHAB AIDE Primary Care Provider Heaven Shah REHAB AIDE Primary Care Provider [phone] Ellen Greer MD Primary Care Provider [phone] Encounter Details Date Type Department Care Team (Latest Contact Info) Description 06/21/2018 Abstract [facility] Medical [facility] , Cecilia Hollins MD Social History Tobacco Use Types Packs/Day Years Used Date Smoking Tobacco: Former Cigarettes 1 7 3 - 1989 Smokeless Tobacco: Never Alcohol Use Standard Drinks/Week Comments No 0 (1 standard drink = 0.6 oz pur e alcohol) Comments No Sex and Gender Information Value Date Recorded Sex Assigned at Female 11/22/2024 3:50 PM CITRUS FRUIT PACKER Legal Sex Female 7:43 PM CDT Gender Identity Female 11/17/2021 3:08 PM CITRUS FRUIT PACKER Sexual Orientation Straight 11/17/2021 3: 08 PM CITRUS FRUIT PACKER Occupation Industry Job Start Date Job End Date Not on file Not on file Not on file Not on file documented as of this encounter Plan of Treatment Upcoming Encounters Date Type Department Care Team (Late st Contact Info) Description 02/13/2025 3:15 PM CDT Appointment [facility] [place]trasound [place] [address] Kacey Vela MD [address] [place] [address] 04/09/2025 1:00 PM CDT [facility] [address] [facility], [address] [place] [address] Zaynab Cuadra, SHOT TUBE MACHINE TENDER 3 [facility] [address] [place] [address] 06/25/2025 1:00 PM CDT [facility] [address] [facility], [address] [place] [address] Elvira Pagan MD 3 [place] [address] documented as of this encounter Visit Diagnoses Not on filedocumented in this encounter Additional Health Concerns Infection Onset Date Last Indicated Resolved Time COVID-19 Rule Out 12/24/2022 12/24/2022 12/24/2022 8:37 PM CDT COVID-19 Rule Out 11/22/2023 11/22/2023 11/22/2023 2:12 AM CITRUS FRUIT PACKER COVID-19 Confirmed 11/22/2023 11/22/2023 12:32 AM CDT documented as of this encounter Care Teams Tractor Crane Operator Relationship Specialty Start Date End Date Esperanza Manrique MD PCP - General INTERNAL MEDICINE 01/21/18 09/20/18 Kianna Mo, REHAB AIDE PCP - General NURSE PRACTITIONER 09/21/18 07/11/20 Abiola Andrews APNP [address] [place] [address] PCP - General Nurse Practitioner Family 07/12/2008/04/21 Eda Nunn FNP- [address] [place] [id number] PCP - General Nurse Practitioner Family 08/05/21 Amanda Bañuelos REHAB AIDE [address] [place] [address] PCP - General NURSE PRACTITIONER 07/20/23 02/23/24 Heaven Frost [place] [address] PCP - General NURSE PRACTITIONER 02/24/24 11/29/24 Ellen Greer MD [facility] [place] [address] PCP - General FAMILY PRACTICE 11/30/24 documented as of this encounter
--- OUTSIDE RECORDS SUMMARY | 2025-02-12 15:51 | XMS_ITS | Encounter Summary ---
Author Organization [facility] System Address [facility] [place] [address] Care Team Providers Care Medical Staff Assistant Name Role Phone Heaven Frost NP Primary Care Provider [phone] Ellen Greer MD Primary Care Provider [phone] Encounter Details Date Type Department Care Team (Late st Contact Info) Description 06/19/2024 GTx Message Enc [facility] Medical Group Family Medicine - [place] [address] [place] [id number] Mychart, [facility] Provider hydrocodone Social History Tobacco Use Types Packs/Day Years Used Date Smoking Tobacco: Former Cigarettes 1 7 0 09/27/1982 - 08/27/1990 Passive Smoke Exposure: Never Smokeless Tobacco: Never Comments:former smoker Alcohol Use Standard Drinks/Week Comments Never 0 (1 standard drink = 0.6 oz pur e alcohol) PHQ-2 Answer Date Recorded Patient Health Questionnaire-2 Score 0 06/23/2024 Comments No Sex and Gender Information Value Date Recorded Sex Assigned at Female 11/22/2024 3:50 PM SWITCHING OPERATOR Legal Sex Female 7:43 PM CDT Gender Identity Female 11/17/2021 3:08 PM SWITCHING OPERATOR Sexual Orientation Straight 11/17/2021 3: 08 PM SWITCHING OPERATOR Occupation Industry Job Start Date Job End Date Not on file Not on file Not on file Not on file documented as of this encounter Progress Notes * Chelle Yao - 06/21/2024 3:00 PM CDT Pt called office, let pt know to keep her appt on 06/23 to discuss the CSA agreement, hydrocodone and pain management pt verbalized understanding documented in this encounter Plan of Treatment Upcoming Encounters Date Type Department Care Team (Late st Contact Info) Description 02/13/2025 3:15 PM CDT Appointment [facility] Ultrasound ONE [facility] [place] [address] Kacey Vela MD [address] [place] [address] 04/09/2025 1:00 PM CDT Office Visit [facility] [address] [facility], [address] [place] [address] Zaynab Cuadra APRN [address] [facility] [address] [place] [address] 06/25/2025 1:00 PM CDT [facility] 3 [facility], [address] [place] [address] Elvira Pagan MD 3 [place] [address] documented as of this encounter Visit Diagnoses Not on filedocumented in this encounter Additional Health Concerns Assessment Noted Time PHQ-9 Depression Total Score: 0 07/20/20 23 11:23 AM CDT documented as of this encounter Care Teams Medical Staff Assistant Relationship Specialty Start Date End Date Heaven Frost [place] [address] PCP - General NURSE PRACTITIONER 02/24/24 11/29/24 Ellen Greer MD [address] [place] [address] PCP - General FAMILY PRACTICE 11/30/24 documented as of this encounter
--- OUTSIDE RECORDS SUMMARY | 2025-02-12 15:51 | XMS_ITS | Encounter Summary ---
Author Organization [facility] System Address [facility] [place] [address] Care Team Providers Care It Consultant Name Role Phone Heaven Frost NP Primary Care Provider [phone] Ellen Greer MD Primary Care Provider [phone] Encounter Details Date Type Department Care Team (Late st Contact Info) Description 04/24/2024 BetaVersityt Message Enc [facility] Medical Group Family Medicine - [place] [address] [place] [address] Heaven Frost NP 5 [place] [address] Periodic paralysis testing Social History Tobacco Use Types Packs/Day Years Used Date Smoking Tobacco: Former Cigarettes 1 7 0 09/27/1982 - 08/27/1990 Passive Smoke Exposure: Never Smokeless Tobacco: Never Comments:former smoker Alcohol Use Standard Drinks/Week Comments Never 0 (1 standard drink = 0.6 oz pur e alcohol) PHQ-2 Answer Date Recorded Patient Health Questionnaire-2 Score 0 04/24/2024 Comments No Sex and Gender Information Value Date Recorded Sex Assigned at Female 11/22/2024 3:50 PM RIVET BUCKER Legal Sex Female 7:43 PM CDT Gender Identity Female 11/17/2021 3:08 PM RIVET BUCKER Sexual Orientation Straight 11/17/2021 3: 08 PM RIVET BUCKER Occupation Industry Job Start Date Job End Date Not on file Not on file Not on file Not on file documented as of this encounter Functional Status * Over the past 2 weeks, how often have you been bothered by any of the following problems? Question Answer Date of Assessment Author Status Little interest or pleasure in doing things Not at all 04/24/2024 8:37 AM CDT Wil Juarez MA Active Feeling down, depressed, or hopeless Not at all 04/24/2024 8:37 AM CDT Bharathi Juarez MA Active Patient Health Questionnaire-2 Score 0 04/24/2024 8:37 AM CDT Malcolm Juarez MA Active * If you checked off any problems on this questionnaire so far, Question Answer Date of Assessment Author Status How difficult have these problems made it for you to do your work, take care of things at home, or get along with other people? Not difficult at all 04/24/2024 8:37 AM CDT Amanda Juarez MA Active documented as of this encounter Plan of Treatment Upcoming Encounters Date Type Department Care Team (Late st Contact Info) Description 02/13/2025 3:15 PM CDT Appointment [facility] [place] [address] Kacey Vela MD [address] [place] [address] 04/09/2025 1:00 PM CDT [facility] 3 [facility], [address] [place] [address] Zaynab Cuadra APRN 3 [facility] [address] [place] [address] 06/25/2025 1:00 PM CDT [facility] 3 [facility], [address] [place] [address] Elvira Pagan MD 3 [place] [address] documented as of this encounter Visit Diagnoses Not on filedocumented in this encounter Additional Health Concerns Assessment Noted Time PHQ-9 Depression Total Score: 0 07/20/20 23 11:23 AM CDT documented as of this encounter Care Teams It Consultant Relationship Specialty Start Date End Date Heaven [place] [address] PCP - General NURSE PRACTITIONER 02/24/24 11/29/24 Ellen Greer MD [address] [place] [address] PCP - General FAMILY PRACTICE 11/30/24 documented as of this encounter
--- OUTSIDE RECORDS SUMMARY | 2025-02-12 15:51 | XMS_ITS | Encounter Summary ---
Author Organization [facility] System Address [facility] [place] [address] Care Team Providers Care Marketing Support Manager Name Role Phone Heaven Frost NP Primary Care Provider [phone] Ellen Greer MD Primary Care Provider [phone] Encounter Details Date Type Department Care Team (Latest Contact Info) Description 04/25/2024 MyChart Message Enc [facility] Medical Group Family Medicine - [place] [address] [place] [address] Heaven Frost NP [address] [place] [address] Potassium prescription question Social History Tobacco Use Types Packs/Day Years [...] Sex Assigned at Female 11/22/2024 3:50 PM PHONE TRIAGE SPECIALIST Legal Sex Female 7:43 PM CDT Gender Identity Female 11/17/2021 3:08 PM PHONE TRIAGE SPECIALIST Sexual Orientation Straight 11/17/2021 3: 08 PM PHONE TRIAGE SPECIALIST Occupation Industry Job Start Date Job End Date Not on file Not on file Not on file Not on file documented as of this encounter Plan of Treatment Upcoming Encounters Date Type Department Care Team (Late st Contact Info) Description 02/13/2025 3:15 PM CDT Appointment [facility] [address] [place] [address] Kacey Vela MD [address] [place] [address] 04/09/2025 1:00 PM CDT [facility] 3 [facility], [address] [place] [address] Zaynab Cuadra, SORT SUPERVISOR 3 [facility] [address] [place] [address] 06/25/2025 1:00 PM CDT [facility] 3 [facility], [address] [place] [address] Elvira Pagan MD 3 [place] [address] documented as of this encounter Visit Diagnoses Not on filedocumented in this encounter Additional Health Concerns Assessment Noted Time PHQ-9 Depression Total Score: 0 07/20/20 23 11:23 AM CDT documented as of this encounter Care Teams Marketing Support Manager Relationship Specialty Start Date End Date Heaven [place] [address] PCP - General NURSE PRACTITIONER 02/24/24 11/29/24 Ellen Greer MD [address] [place] [address] PCP - General FAMILY PRACTICE 11/30/24 documented as of this encounter
--- OUTSIDE RECORDS SUMMARY | 2025-02-12 15:51 | XMS_ITS | Clinical Summary ---
Author Organization [facility] Address [address] [place] [address] Care Team Providers Care Counter Top Maker Name Role Phone Ellen Greer MD Primary Care Provider [phone] Allergies Active Allergy Reactions Criticality Noted Date Comments Ciprofloxacin Chest pressure High 01/21/2018 Citric Acid Swelling 11/18/2021 Gabapentin Chest pressure High 02/06/2021 Gluten Meal Other (see comment) 05/24/2023 Gastric issues Latex Swelling Low 10/28/2017 Lidocaine Swelling Low 02/06/2021 With epi Molds & Smuts Blurred vision,Runny Nose,Shortness of Breath,Swelling High 06/29/2022 Nuts Blurred vision,Swelling 08/12/2023 Oat Grain (Diagnostic) Swelling 11/18/2021 grains in general Pineapple Throat swelling 01/28/2024 Procaine Swelling Low 10/28/2017 Shellfish Allergy Anaphylaxis,Throat swelling High 01/26/2023 Medications * This document contains information received from the source organization and may not represent a complete record from that organization. Potassium (POTASSIMIN OR) Take 300 mg by mouth 3 (three) times a day. Active Blood Pressure KitIndications:P rimary hypertension Take blood pressure daily and keep a log 1 kit 3 Active EPINEPHrine 0.3 MG/0.3ML injectionIndicat ions:Multiple food allergies,Wheezi ng,Swelling of throat Inject 0.3 mLs (0.3 mg total) into the muscle as needed for Anaphylaxis. 1 each 1 3 Active Additional Information Patient not taking.Reported on 01/02/2025 vitamin D3 10 mcg tablet Take 2.5 tablets (25 mcg total) by mouth daily. Active HYDROcodone-acet aminophen (NORCO) 5-325 MG tabletIndication s:Chronic Pain Take 1 tablet by mouth every 6 (six) hours as needed for Pain. Indications: Chronic Pain 30 tablet 5 Active naloxone (NARCAN) 4 MG/0.1ML nasal sprayIndications :Cervical disc disorder with radiculopathy,Sy rinx of spinal cord (CMS/HCC HHS/HCC) 1 spray by Nasal route as needed for Opioid reversal. may repeat every 2 to 3 minutes in alternating nostrils until medical assistance becomes available 1 each 5 12/01/19 26 Active Additional Information Patient not taking.Reported on 01/02/2025 cyanocobalamin (B-12) 1000 MCG/ML injectionIndicat ions:B12 deficiency Inject 1 mL (1,000 mcg total) into the muscle once a week. 4 mL 3 5 Active SYRINGE-NEEDLE, DISP, 3 ML 25G X 1 3 ML MiscIndications: B12 deficiency 1 each by Does not apply route once a week. 4 each 3 5 Active tamsulosin (FLOMAX) 0.4 MG CapIndications:N ephrolithiasis Take 1 capsule (0.4 mg total) by mouth daily. 30 capsule 3 5 Active hydroCHLOROthiaz machelle (MICROZIDE) 12.5 MG capsuleIndicatio ns:Essential hypertension Take 1 capsule (12.5 mg total) by mouth every morning. 30 capsule 8 5 Active l-methylfolate 15 MG tabletIndication s:Other folate deficiency anemias,Methylen etetrahydrofolat e reductase (MTHFR) deficiency ([facility]/HCC) Take 1 tablet (15 mg total) by mouth daily. 30 tablet 11 5 Active Active Problems Problem Noted Date Diagnosed Date Essential hypertension 01/02/2025 Overview (01/02/2025): - BP goal: less than 140/90 - BP controlled: No - Labs: UTD - Pt does not use tobacco products, encouraged cessation if using tobacco products - Counseled regarding importance of lifestyle modification: healthy diet & regular exercise 30mins 3-5x weekly - RTC 1 month(s) - pt hesitant to start medication, willing to try HCTZ 12.5 given it can help reduce kidney stones as well Hepatic steatosis 01/02/2025 Overview (01/02/2025): NAFLD Fibrosis Score: -0.98 at 01/01/2025 5:24 PM Calculated from: SGOT/AST: 37 U/L at 01/01/2025 5:24 PM SGPT/ALT: 45 U/L at 01/01/2025 5:24 PM Serum Albumin: 3.5 G/DL at 01/01/2025 5:24 PM Platelets: 294 x10'3/uL at 01/01/2025 5:24 PM Age: 74 years BMI: 33.8 at 01/01/2025 3:31 PM Weight (recorded): 92.00 kg at 01/01/2025 3:31 PM Height: 165.10 cm at 01/01/2025 3:31 PM Has Diabetes: No - continue to monitor with CMP and CBC, consider liver US/elastography to evaluate liver stiffness 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 Cord compression myelopathy (CMS/HCC HHS/HCC) Spinal stenosis of cervical region 04/10/2024 Other cervical disc displace ment, unspecified cervical region 04/10/2024 Other cervical disc degenera tion, unspecified cervical region 04/10/2024 Spondylolisthesis of cervical region 04/10/2024 Foraminal stenosis of cervical region 04/10/2024 Prediabetes 12/06/2022 Deviated nasal septum 10/03/2022 Hypertrophy of nasal turbinates 10/03/2022 Nasal congestion 10/03/2022 Hammertoe of left foot 06/29/2021 Chronic right shoulder pain 03/17/2021 Chronic right hip pain 03/17/2021 Medication management 08/11/2020 Hx of histoplasmosis 07/02/2020 Other acute back pain 05/15/2020 Headland hump 04/20/2020 Multiple thyroid nodules 07/19/2019 Ganglion cyst of volar aspect of right wrist 09/2018 Hyperoxaluria 11/17/2018 Balance problem 10/12/2018 Cobalamin deficiency 10/12/2018 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 18 Nephrolithiasis 09/12/2018 Overview (01/02/2025): - pt with recurrent nephrolithiasis, uses flomax prn Cystitis, interstitial 07/08/2018 Syrinx of spinal cord (CMS/HCC HHS/HCC) 07/08/20 18 Cervical disc disorder with radiculopathy 2017 Abnormal MRI, thoracic spine 05/26/2018 Blurred vision, left eye 05/20/2018 S/P parathyroidectomy 03/18/2018 Myofascial pain 01/21/2018 Hyperparathyroidism (HHS/HCC) 01/11/2018 Lung nodule 11/23/2017 Neuropathy, idiopathic 10/20/2017 Multinodular goiter 09/29/2017 Folate-deficiency anemia 09/16/2017 Overview (01/02/2025): - hx folate-def anemia 2/2 MTHFR def - will send L-methylfolate to pt's pharmacy, as this is the bioactive form that bypasses the MTHFR enzyme Trigger point with neuralgia 08/27/2017 Fatigue 03/04/2017 H/O lithotripsy 02/11/2017 Atypical mole 11/03/2016 Mild vitamin D deficiency 08/04/2016 Leiomyoma of uterus 05/05/2016 Pernicious anemia 05/05/2016 Overview (01/02/2025): - hx pernicious anemia requiring B12 injections, currently taking loading doses (1000 mg B12 q1w x4w) - continue maintenance B12 injections after loading (1000 mg monthly) Gastroesophageal reflux disease 02/17/2016 Degenerative joint disease of cervical spine Poor short term memory 06/20/2015 B12 deficiency 04/02/2015 Phocomelia of left upper extremity 08/02/2014 Resolved Problems Problem Noted Date Diagnosed Date Resolved Date Closed fracture of nasal bones 10/03/2022 12/06/2022 Disorder of nose 10/03/2022 12/06/2022 Shortness of breath 04/18/2019 12/07/19 23 Ganglion cyst of wrist, right 02/08/2019 12/06/2022 Lump of right wrist 12/09/2018 12/07/19 Nephrolithiasis 11/17/2018 11/17/2018 Hypokalemia 11/17/2018 02/14/2023 Kidney stone on left side 08/31/2018 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 12/06/2022 Calcium disorder 12/30/2017 12/06/2022 Occult blood positive stool 04/27/2017 12/06/2022 Constipation 04/20/2017 12/06/2022 Kidney stone on right side 05/27/2016 0 12/06/2022 Encounters Date Type Department Care Team Description 02/12/2025 10:58 AM CDT Hospital Encounter [facility] [place] [address] Kacey Vela MD 02/08/2025 12:58 PM CDT - 02/08/2025 11:59 PM CDT Hospital Encounter [facility] [place] [address] Kacey Vela MD Discharge Disposition: Home or Self Care (Routine Discharge) 02/08/[address] [phone] Ellen Greer MD Returned Call (Called and spoke to pt, re updates on contacting Dr Laird and her b-12 injections) 02/08/2025 Travel 02/08/[address] [phone] Ellen Greer MD Referral (Called [facility] referral we sent in November per ankita records received but uploated labs were dark) 02/08/2025 MyChart Message Enc [address] [phone] Ellen Greer MD Update 02/06/2025 Telephone [facility] [address] [facility] [address], [address] [place] [phone] Elvira Pagan MD Lab Results 02/05/2025 Results Follow-Up [facility] [address] [address], [address] [place] [id number] Elvira Pagan MD PARANEOPLASTIC AB W/RFX TITER 01/26/2025 3:30 PM CDT - 01/26/2025 11:59 PM CDT Hospital Encounter [facility] [place] [address] Kacey Vela MD Discharge Disposition: Home or Self Care (Routine Discharge) 01/26/2025 Orders Only [facility] [place] [address] Kacey Vela MD 01/26/2025 Travel 01/26/[address] [phone] Ellen Greer MD Medication Information (Julia Chen pt advocate for health care had called re pt) 01/24/[address] [phone] Ellen Greer MD Referral (As per pt notes she is asking for lubrication supervisor please advise) 01/23/2025 Telephone [id number] [place] [address] Ellen Greer MD Problem (Pt has experienced another episode of the paralysis on Wednesday pt was unable to walk up her drive way, per Julia Chen, pt tried to video but the file was too large to accept, pt had assistance but wanted MD to know that it did affect her speach) 01/22/[address] [phone] Ellen Greer MD Error 01/17/2025 MyChart Message Enc [facility] - [address], [address] [place] [address] Elvira Pagan MD Results for Stiff Person Syndrome 01/17/[address] [phone] Ellen Greer MD Error 01/16/2025 MyChart Message Enc [address] [phone] Ellen Greer MD Continued 01/16/2025 MyChart Message Enc [address] [address] Ellen Greer MD Continued 01/16/2025 MyChart Message Enc [address] [phone] Ellen Greer MD List of questions for Dr Greer. 01/16/2025 MyChart Message Enc [address] [phone] Ellen Greer MD Genetics results 01/15/[address] [phone] Ellen Greer MD Question (Re referral to Neuro muscular clinic at [facility]) 01/02/2025 1:00 PM CDT Office Visit [address] [phone] Ellen Greer MD Hypertension; Imm/Inj (B-12); Med Refills (Refills needed on flomax); Medication (Hydrocodone/apap 5/325 too strong pt takes 3/4 tab used to take 7.5 and cut in half); ER F/U (Went to [facility] er for flank pain yesterday) 01/01/2025 4:36 PM CDT - 01/01/2025 9:05 PM CDT Emergency [facility] [place] [address] Markus Pizarro MD Flank Pain Discharge Disposition: Home or Self Care (Routine Discharge) 01/01/2025 Travel 12/27/[address] [phone] Ellen Greer MD Change Of Condition (Rec'd a call from Julia Chen nurse advocate re pt referral) 12/27/2024 Patient Outreach [address] [phone] Ellen Greer MD Pre-visit Gap Closure 12/26/[address] [facility] - [address], [address] [place] [phone] Elvira Pagan MD Medication 12/22/2024 2:05 PM CDT - 12/22/2024 11:59 PM CDT Hospital Encounter [facility] [place] [address] Elvira Pagan MD Discharge Disposition: Home or Self Care (Routine Discharge) 12/22/2024 1:20 PM CDT Office Visit [address], [address] [place] [address] Elvira Pagan MD Follow Up 12/22/2024 Scan HEALTH INFO SRVCS Scanned, Doc [facility] (SCAN) 12/22/2024 Travel 12/13/2024 Orders Only [facility] [place] [address] Heaven Frost NP 12/12/[address] [phone] Ellen Greer MD Referral (Patient advocate Questions / Concerns. ) 12/11/2024 1:30 PM CDT Office Visit [facility] [address] [place] [address] Elvira Pagan MD Thompson, Jennifer L, PT Cerv Radiculitis 12/11/2024 Travel 12/08/2024 3:37 PM CDT - 12/08/2024 11:59 PM CDT [facility] [place] [address] Heaven Frost NP Discharge Disposition: Home or Self Care (Routine Discharge) 12/08/2024 Travel 12/08/2024 MyChart Message Enc [address] [phone] Ellen Greer MD B12 injections 12/01/2024 10:15 AM VACATION SALES ADVISOR Office Visit [facility] [address] [place] [address] Elvira Pagan MD Thompson, Jennifer L, PT Neck Pain 11/30/2024 1:00 PM VACATION SALES ADVISOR Office Visit [address] [phone] Ellen Greer MD Establish Care (Heaven Frost lv 10/27/2024) 11/30/2024 Travel 11/29/2024 Orders Only [address] [phone] Heaven Frost NP 11/27/2024 2:00 PM VACATION SALES ADVISOR Office Visit [facility] [address] [place] [address] Elvira Pagan MD Thompson, Jennifer L, PT Initial Evaluation 11/27/2024 Travel 11/22/2024 3:54 PM VACATION SALES ADVISOR - 11/22/2024 11:59 PM VACATION SALES ADVISOR Hospital Encounter [facility] [place] [address] Luis Fernandez MD Discharge Disposition: Home or Self Care (Routine Discharge) 11/22/2024 Scan [employer] [facility] INFO SRVCS Scanned, Doc [facility] (SCAN) 11/22/2024 Orders Only [facility] [place] [address] Luis Fernandez MD 11/22/2024 Travel 11/22/2024 Patient Outreach [address] [address] Heaven Frost NP Pre-visit Gap Closure 11/20/2024 MyChart Message Enc [address] [address] Heaven Frost NP Looking for B12 test results from Last 3 Months Immunizations Immunization Administration Dates Next Due COVID-19 Vaccine (Generic) 09/25/2021(Deferred: Patient Refused) Fluzone Adult - >Age 3 (Pref illed Syringe) 09/25/2021(Deferred: Patient Refused) Pneumococcal (Pneumovax 23) 02/06/2021(Deferred: Patient Refused) Pneumococcal (Prevnar 13) 02/06/2021(Deferred: P atient Refused) Tdap (Boostrix) 11/10/2022(Deferred: Patient/family declined) Tdap (Generic) 11/10/2022 Family History Medical History Relation Comments Colon polyps Father Heart Disease Mother @ age 49 Miscarriages / Stillbirths Mother Multi myocardial infarction Mother non-alcoholic fatty liver Mother vitamin b12 deficiency Mother Diabetes Paternal Grandfather Stroke Paternal Grandfather Breast Cancer Paternal Grandmother age unknown Colon Cancer Paternal Uncle Alzheimers Sister Relation Status Comments Father Mother Paternal Grandfather Paternal Grandmother Alive Paternal Uncle Sister Alive Social History Tobacco Use Types Packs/Day Years Used Date Smoking Tobacco: Former Cigarettes 1 7 0 09/27/1982 - 08/27/1990 Passive Smoke Exposure: Never Smokeless Tobacco: Never Tobacco Cessation:Counseling Given: No Comments:former smoker Alcohol Use Standard Drinks/Week Comments Never 0 (1 standard drink = 0.6 oz pur e alcohol) PHQ-2 Answer Date Recorded Patient Health Questionnaire-2 Score 0 01/02/2025 Comments No Sex and Gender Information Value Date Recorded Sex Assigned at Female 11/22/2024 3:50 PM VACATION SALES ADVISOR Legal Sex Female 7:43 PM CDT Gender Identity Female 11/17/2021 3:08 PM VACATION SALES ADVISOR Sexual Orientation Straight 11/17/2021 3: 08 PM VACATION SALES ADVISOR Occupation Industry Job Start Date Job End Date Not on file Not on file Not on file Not on file Last Filed Vital Signs Vital Sign Reading Time Taken Comments Blood Pressure 150/82 01/02/2025 6:16 PM CDT man ual Pulse 67 01/02/2025 1:00 PM CDT Temperature 36.4 C (97.5 F) 01/02/2025 1:00 PM CDT Respiratory Rate 16 01/02/2025 1:00 PM CDT Oxygen Saturation 97% 01/02/2025 1:00 PM CDT Inhaled Oxygen Concentration - - Weight 90.4 kg (199 lb 3.2 oz) 01/02/2025 1:00 P M CDT Height 165.1 cm (5' 5 ) 01/02/2025 1:00 PM CDT Body Mass Index 33.15 01/02/2025 1:00 PM CDT Plan of Treatment Upcoming Encounters Date Type Department Care Team (Late st Contact Info) Description 02/13/2025 3:[address] [facility] [place] [address] Kacey Vela MD [address] [place] [address] 04/09/2025 1:00 PM CDT Office Visit [facility] [address] [address] [facility], [address] [place] [address] Zaynab Cuadra APRN [address] [facility] [address] [place] [address] 06/25/2025 1:00 PM CDT Office Visit [facility] [address] [facility] [address] [facility] [address], [address] [place] [address] Elvira Pagan MD [address] [place] [address] Health Maintenance Due Date Last Done Comments Hepatitis C 1966 Pneumococcal Vaccine: 50+ Years (1 of 1 - PCV) 1998 Zoster Vaccines (1 of 2) 1998 Annual Medicare Wellness Visit 2013 RSV Immunization or 60+ Years (1 - 1-dose 75+ series) 2023 ASCVD LDL 11/03/2023 11/03/2022, 11/05/2020, 03/01/2017 COVID-19 Vaccine ( - 2023-2 5 season) 2024 DTaP, Tdap and Td Vaccines ( 2 - Td or Tdap) 11/10/2032 11/10/2022 Colorectal Cancer Screening Colonoscopy (10 Years) Discontinued 05/06/2017, PHQ-2 (Physician [place]) Completed 01/02/2025 Dexa Scan (General) Completed 02/08/2025, 03/11/2021 Meningococcal B Vaccine Aged Out No l onger eligible based on patient's age to complete this topic Meningococcal Vaccine Aged Out No giuseppe kell eligible based on patient's age to complete this topic RSV Immunizations Under 20 Months Aged Out No longer eligible based on patient's age to complete this topic Procedures Procedure Name Priority Date/Time Associated Diagnosis Comments CALCIUM URINE 24 HR Routine 02/12/2025 8 :00 AM CDT Hypercalcinuria BONE DENSITY/DEXA Routine 02/08/2025 1:4 7 PM CDT Asymptomatic menopausal state BASIC METABOLIC PANEL Routine 01/26/2025 3:41 PM CDT Prediabetes Nontoxic single thyroid nodule Acquired absence of other part of head and neck Other specified abnormal findings of blood chemistry FREE T3 Routine 01/26/2025 3:41 PM CDT Prediabetes Nontoxic single thyroid nodule Acquired absence of other part of head and neck Other specified abnormal findings of blood chemistry COMPREHENSIVE METABOLIC PANEL STAT 01/01/2025 5:24 PM CDT CBC W/DIFF AUTOMATED STAT 01/01/2025 5:[address] ABD+PEL KIDNEY STONE STAT 01/02/20 4:35 PM CDT URINE BACTERIA CULTURE STAT 3:47 PM CDT HC URINALYSIS AUTO W/O MICRO STAT 01/01/2025 3:47 PM CDT PARANEOPLASTIC AB W/RFX TITER Routine 12/22/2024 2:16 PM CDT Neuropathy OUTSIDE LAB (SCAN ORDER) 12/22/2024 OUTSIDE LAB (SCAN ORDER) 12/22/2024 OUTSIDE LAB (SCAN ORDER) 12/22/2024 VITAMIN B-12 Routine 12/08/2024 3:40 PM CDT B12 deficiency COMPREHENSIVE METABOLIC PANEL Routine 12/08/2024 3:40 PM CDT Hypokalemia MG/PCCL UDS SCREEN Routine 11/30/2024 2: 18 PM VACATION SALES ADVISOR Cervical disc disorder with radiculopathy Syrinx of spinal cord ([facility]/HCC HHS/HCC) Controlled substance agreement signed CALCIUM, IONIZED Routine 11/22/2024 4:05 PM VACATION SALES ADVISOR Acquired absence of other part of head and neck Body mass index 32.0-32.9, adult Prediabetes Other specified abnormal findings of blood chemistry Nontoxic single thyroid nodule PTH - INTACT Routine 11/22/2024 4:05 PM VACATION SALES ADVISOR Acquired absence of other part of head and neck Body mass index 32.0-32.9, adult Prediabetes Other specified abnormal findings of blood chemistry Nontoxic single thyroid nodule VITAMIN D, 25 OH Routine 11/22/2024 4:05 PM VACATION SALES ADVISOR Acquired absence of other part of head and neck Body mass index 32.0-32.9, adult Prediabetes Other specified abnormal findings of blood chemistry Nontoxic single thyroid nodule COMPREHENSIVE METABOLIC PANEL Routine 11/22/2024 4:05 PM VACATION SALES ADVISOR Acquired absence of other part of head and neck Body mass index 32.0-32.9, adult Prediabetes Other specified abnormal findings of blood chemistry Nontoxic single thyroid nodule OUTSIDE LAB (SCAN ORDER) 11/22/2024 OUTSIDE LAB (SCAN ORDER) 11/22/2024 LIPID PANEL Routine 11/03/2022 8:23 AM VACATION SALES ADVISOR Hypertriglyceridem ia COLONOSCOPY GENERIC (SCAN ORDER) Routine 05/06/2017 from Last 3 Months or Most Recently Relevant to Health Maintenance Results * (ABNORMAL) CALCIUM URINE 24 HR (02/12/2025 8:00 AM CDT) CALCIUM (U) 11.5 MG/DL 02/12/2025 2:44 PM CDT [facility] Comment:REFERENCE RANGE NOT ESTABLISHED CALC 24HR CA (U) 356.5(H) 42.0 - 353.0 MG/24HR 02/12/2025 2:44 PM CDT [facility] Comment:COLLECTION ONLY 23 H OURS, REFERENCE RANGE DOES NOT APPLY VOLUME (U) 3,100 ML 02/12/2025 2:27 PM CDT [facility] URINE SPECIMEN / Unknown 02/12/2025 8:00 AM CDT Kacey Vela MD URINE ORDERABLES Final Result [facility] [address] [place] [address], [id number] * BONE DENSITY/DEXA (02/08/2025 1:47 PM CDT) Anatomical Region Laterality Modality Bone Mammography 02/08/2025 1:51 PM CDT Impressions 02/08/2025 1:52 PM CDT IMPRESSION: WHO Classification: Osteopenia. RECOMMENDATIONS: All patients should ensure an adequate intake of dietary calcium and vitamin D. The NOF recommend adults under the age of 50 need 1000 mg of calcium and 400-800 IU of vitamin D daily. Effective therapy for the prevention and treatment of osteoporosis include bisphosphonates. FOLLOW-UP: People with diagnosed cases of osteoporosis or at high risk for fracture should have regular bone mineral density test. For patients eligible for Medicare, routine testing is allowed once every 2 years. Testing frequency can be increased to one year for patients who have rapidly progressing disease, those who are receiving or discontinuing medical therapy to restore bone mass, or have additional risk factors. Ordered By: KACEY VELA Interpreted By: Waqas Bowser, 02/08/2025 1:51 PM Narrative 02/08/2025 1:52 PM CDT [facility] [place] [address] EXAMINATION: BONE DENSITY/DEXA INDICATIONS: Asymptomatic menopausal state COMPARISON: None TECHNIQUE: DEXA bone mineral density evaluation was performed in the AP projection over the lumbar spine and both hips utilizing standard imaging techniques. FINDINGS: The BMD measured at the AP spine L1-L4 is 0.959 g/cm? with a T-score of -0.8. The BMD measured at the left femoral neck is 0.647 g/cm? with a T-score of -1.8. The BMD measured at the left hip is 0.953 g/cm? with a T-score of 0.1. The BMD measured at the right femoral neck is 0.727 g/cm? with a T-score of - 1.1. The BMD measured at the right hip is 0.957 g/cm? with a T-score of 0.1. FRAX 10-year fracture risk: Major Osteoporotic Fracture: 22% Hip Fracture: 12% Procedure Note Waqas Bowser MD - 02/08/2025 [facility] [place] [address] EXAMINATION: BONE DENSITY/DEXA INDICATIONS: Asymptomatic menopausal state COMPARISON: None TECHNIQUE: DEXA bone mineral density evaluation was performed in the APprojection over the lumbar spine and both hips utilizing standard imagingtechniques. FINDINGS: The BMD measured at the AP spine L1-L4 is 0.959 g/cm? with a T-score of-0.8. The BMD measured at the left femoral neck is 0.647 g/cm? with a T-score of-1.8. The BMD measured at the left hip is 0.953 g/cm? with a T-score of 0.1. The BMD measured at the right femoral neck is 0.727 g/cm? with a T-scoreof -1.1. The BMD measured at the right hip is 0.957 g/cm? with a T-score of 0.1. FRAX 10-year fracture risk: Major Osteoporotic Fracture: 22% Hip Fracture: 12% IMPRESSION: WHO Classification: Osteopenia. RECOMMENDATIONS: All patients should ensure an adequate intake of dietary calcium andvitamin D. The NOF recommend adults under the age of 50 need 1000 mg ofcalcium and 400-800 IU of vitamin D daily. Effective therapy for theprevention and treatment of osteoporosis include bisphosphonates. FOLLOW-UP: People with diagnosed cases of osteoporosis or at high risk for fractureshould have regular bone mineral density test. For patients eligible forMedicare, routine testing is allowed once every 2 years. Testing frequencycan be increased to one year for patients who have rapidly progressingdisease, those who are receiving or discontinuing medical therapy torestore bone mass, or have additional risk factors. Ordered By: KACEY VELA Interpreted By: Waqas Bowser, 02/08/2025 1:51 PM Kacey Vela MD DEXA Final Result * FREE T3 (01/26/2025 3:41 PM CDT) FREE T3 2.7 2.18 - 3.98 PG/ML 01/27/2025 12:02 PM CDT [facility] 01/26/2025 3:41 PM CDT Kacey Vela MD LABORATORY Final Result [facility] [address] [id number], [place] [phone] * (ABNORMAL) BASIC METABOLIC PANEL (01/26/2025 3:41 PM CDT) GLUCOSE 125(H) 70 - 99 MG/DL 01/26/2025 4:24 PM CDT [facility] BUN 8 7 - 18 MG/DL 01/26/2025 4:24 PM CDT [facility] CREATININE S/P/B 0.82 0.55 - 1.02 MG/DL 01/26/2025 4:24 PM CDT [facility] SODIUM S/P/B 142 136 - 145 MMOL/L 01/26/2025 4:24 PM CDT [facility] POTASSIUM S/P/B 3.1(L) 3.5 - 5.1 MMOL/L 01/26/2025 4:24 PM CDT [facility] CHLORIDE S/P/B 109 97 - 115 MMOL/L 01/26/2025 4:24 PM CDT [facility] CO2 24.9 21 - 32 MMOL/L 01/26/2025 4:24 PM CDT [facility] CALCIUM S/P/B 9.4 8.5 - 10.1 MG/DL 01/26/2025 4:24 PM CDT [facility] ANION GAP 8.1 2 - 10 MMOL/L 01/26/2025 4:24 PM CDT [facility] BUN CREATININE RATIO 9.8 6 - 26 01/26/2025 4:24 PM CDT [facility] GFR ESTIMATE 74(L) >90 ML/MIN/1.7 3 M2 01/26/2025 4:24 PM CDT [facility] Comment: NOTE: eGFR is not calculated for patients <18 years of age or gender unknown. This is an estimated GFR calculation using the new CKD EPI creatinine equation without race and so does not require a correction factor for race. This estimated GFR should not be used for calculating drug doses. 01/26/2025 3:41 PM CDT us Kacey Vela MD LABORATORY Final Result [facility] [address] [place] [address], * (ABNORMAL) COMPREHENSIVE METABOLIC PANEL (01/01/2025 5:24 PM CDT) Only the most recent of3 resultswithin the time period is included. [facility] Signature GLUCOSE 101(H [id number]|2025-02-12 15:51:00|2025-02-12 15:50:00|XMS_ITS|GARYG RUSLAN|External Medical Summaries|[id number]|" Encounter Summary Created on: February 12, 2025 Lilo Luciano : 1950 Sex: Female Author Organization [facility] Address [address] [place] [address] Care Team Providers Care Counter Top Maker Name Role Phone Ellen Greer MD Primary Care Provider [phone] Reason for Visit * Reason Comments Lab (SCAN) Encounter Details Date Type Department Care Team (Latest Contact Info) Description 12/22/2024 Scan HEALTH INFO [facility] Scanned, [facility] Lab (SCAN) Social History Tobacco Use Types Packs/Day Years [...] Sex Assigned at Female 11/22/2024 3:50 PM VACATION SALES ADVISOR Legal Sex Female 7:43 PM CDT Gender Identity Female 11/17/2021 3:08 PM VACATION SALES ADVISOR Sexual Orientation Straight 11/17/2021 3: 08 PM VACATION SALES ADVISOR Occupation Industry Job Start Date Job End Date Not on file Not on file Not on file Not on file documented as of this encounter Functional Status * Over the past 2 weeks, how often have you been bothered by any of the following problems? Question Answer Date of Assessment Author Status Little interest or pleasure in doing things Not at all 01/02/2025 12:55 PM LVT Lesley Covarrubias MA Active Feeling down, depressed, or hopeless Not at all 01/02/2025 12:55 PM CDT Reinier Covarrubias MA Active Patient Health Questionnaire-2 Score 0 01/02/2025 12:55 PM CDT Meron Covarrubias MA Active * Calculated C-SSRS Risk Score (Lifetime/Recent) Answer Date of Assessment Author Status No Risk Indicated 01/01/2025 3:37 PM CDT Patti Preston RN Active * If you checked off any problems on this questionnaire so far, Question Answer Date of Assessment Author Status How difficult have these problems made it for you to do your work, take care of things at home, or get along with other people? Not difficult at all 01/02/2025 12:55 PM CDT Lesley Covarrubias MA Active * [place] Suicide Severity Rating Scale (Screener/Recent Self-Report) Question Answer Date of Assessment Author Status 1. Wish to be (Past 1 Month) No 01/01/2025 3:37 PM CDT Roxanne Preston RN Acti ve 2. Non-Specific Active Suicidal Thoughts (Past 1 Month) No 01/01/2025 3:37 PM CDT Roxanne Preston RN Acti ve 6. Suicidal Behavior (Lifetime) No 01/01/2025 3:37 PM CDT Roxanne Preston RN Acti ve documented as of this encounter Plan of Treatment Upcoming Encounters Date Type Department Care Team (Late st Contact Info) Description 02/13/2025 3:15 PM CDT Appointment [facility] Ultrasound [address] [facility] [place], [place] [address] Kacey Vela MD [address] [place] [address] 04/09/2025 1:00 PM CDT Office Visit [facility] Medical Group Multispecialty Care - [facility] 3 [facility], [address] [place] [address] Zaynab Cuadra, WALLY [address] [facility] [address] [place] [address] 06/25/2025 1:00 PM CDT Office Visit [facility] Medical Group Multispecialty Care - [facility] 3 [facility], [address] [place] [address] Elvira Pagan MD 3 [place] [address] documented as of this encounter Procedures Procedure Name Priority Date/Time Associated Diagnosis Comments OUTSIDE LAB (SCAN ORDER) 12/22/2024 OUTSIDE LAB (SCAN ORDER) 12/22/2024 OUTSIDE LAB (SCAN ORDER) 12/22/2024 documented in this encounter Results * OUTSIDE LAB (SCAN ORDER) (12/22/2024) 12/22/2024 [email or web address] Scanned SCANNING Final Resu lt * OUTSIDE LAB (SCAN ORDER) (12/22/2024) 12/22/2024 [facility] Scanned SCANNING Final Resu lt * OUTSIDE LAB (SCAN ORDER) (12/22/2024) 12/22/2024 [email or web address] Scanned SCANNING Final Resu lt documented in this encounter Visit Diagnoses Not on filedocumented in this encounter Additional Health Concerns Assessment Noted Time PHQ-9 Depression Total Score: 4 12/01/19 25 1:02 PM VACATION SALES ADVISOR documented as of this encounter Care Teams Counter Top Maker Relationship Specialty Start Date End Date Ellen Greer MD [address] [place] [address] PCP - General FAMILY PRACTICE 11/30/24 documented as of this encounter "
--- OUTSIDE RECORDS SUMMARY | 2025-02-12 15:51 | XMS_ITS | Encounter Summary ---
Author Organization [facility] Address [address] [place] [address] Care Team Providers Care Diesel Plant Operator Name Role Phone Heaven Frost NP Primary Care Provider [phone] Ellen Greer MD Primary Care Provider [phone] Encounter Details Date Type Department Care Team (Late st Contact Info) Description 08/30/2024 Volt Athletics Message Enc [facility] Medical Group Family Medicine - [place] [address] [place] [address] Heaven Frost NP [address] [place] [address] Follow up @3 months after blood work Social History Tobacco Use Types Packs/Day Years [...] Sex Assigned at Female 11/22/2024 3:50 PM SLUBBER TENDER Legal Sex Female 7:43 PM CDT Gender Identity Female 11/17/2021 3:08 PM SLUBBER TENDER Sexual Orientation Straight 11/17/2021 3: 08 PM SLUBBER TENDER Occupation Industry Job Start Date Job End Date Not on file Not on file Not on file Not on file documented as of this encounter Progress Notes * Anais Hagan MA - 08/31/2024 4:32 PM CST LVM to call office back tomorrow to set up an appointment. BER TENDER documented in this encounter Plan of Treatment Upcoming Encounters Date Type Department Care Team (Late st Contact Info) Description 02/13/2025 3:15 PM CDT Appointment [facility] [address] [place] [address] Kacey Vela MD [address] [facility] 1 [place] [address] 04/09/2025 1:00 PM CDT Office Visit [facility] Multispecialty Care - [facility] 3 [facility], [address] [place] [address] Zaynab Cuadra, BOX SORTER [address] [facility] [address] [place] [address] 06/25/2025 1:00 PM CDT [facility] 3 [facility], [address] [place] [address] Elvira Pagan MD 3 [place] [address] documented as of this encounter Visit Diagnoses Not on filedocumented in this encounter Additional Health Concerns Assessment Noted Time PHQ-9 Depression Total Score: 0 06/23/20 24 3:44 PM CDT documented as of this encounter Care Teams Diesel Plant Operator Relationship Specialty Start Date End Date Heaven Frost [place] [address] PCP - General NURSE PRACTITIONER 02/24/24 11/29/24 Ellen Greer MD [address] [place] [address] PCP - General FAMILY PRACTICE 11/30/24 documented as of this encounter
[2025-02-12 16:37] LABS: Albumin Level 4.6 g/dL (3.5-5.1); Anion Gap 9 mmol/L (4-12); Blood Urea Nitrogen 9 mg/dL (7-17); Carbon Dioxide 27 mmol/L (22-30); Chloride 105 mmol/L (98-107); Estimated Glomerular Filt Rate > 60; Glucose 103 mg/dL (65-110); Phosphorus 3.9 mg/dL (2.5-4.5); Potassium 3.2 mmol/L (3.4-5.0); Sodium 141 mmol/L (137-145)
[2025-02-12 16:51] LABS: Free T3 3.43 pg/mL (2.45-5.93)
[2025-02-12 17:08] LABS: Thyroid Stimulating Hormone 0.496 uIU/mL (0.465-4.680)
== END 2025-02-12 15:45 | disposition home or self-care (01) ==
PROVIDERS: Visit Provider Internal Medicine Endocrinology, Diabetes & Metabolism
DX: R79.89 Other specified abnormal findings of blood chemistry (principal); E04.9 Nontoxic goiter, unspecified; R73.03 Prediabetes; E04.1 Nontoxic single thyroid nodule; Z90.09 Acquired absence of other part of head and neck; E87.6 Hypokalemia
CPT/HCPCS: 36415; 80069; 84443; 84481

== ENCOUNTER 2025-03-12 15:57 | Outpatient (CLI) | payer MEDICARE, SELFPAY ==
--- OUTSIDE RECORDS SUMMARY | 2025-03-12 16:57 | XMS_ITS | Clinical Summary ---
Author Organization [facility] Address [address] [place] [address] Phone Care Team Providers Care Sap Ariba Consultant Name Role Phone Esperanza Manrique MD Primary Care Provider [phone] Allergies Active Allergy Reactions Criticality Noted Date [...] on file Legal Sex Female 10:25 AM WET ROOM SUPERVISOR Gender Identity Not on file Sexual Orientation [...] 9:02 AM CDT Height 165.1 cm (5' 5) 05/24/2023 9:02 AM CDT Body Mass Index [...] Occult Blood Discontinued 023 Cologuard Discontinued Colonoscopy Discontinued Hepatitis B Immunization Aged [...] age to complete this topic Insurance MEDICARE [facility] Care Teams Sap Ariba Consultant Relationship Specialty [place] [address] [place] [address] PCP - General Internal Medicine 10/28/17
--- OUTSIDE RECORDS SUMMARY | 2025-03-12 16:57 | XMS_ITS | Encounter Summary ---
Author Organization [facility] Address [facility] [place] [address] Care Team Providers Care Groover And Turner Name Role Phone Ellen Greer MD Primary Care Provider [phone] Encounter Details Date Type Department Care Team (Late Contact Info) Description 01/16/2025 MyChart Message Enc [facility] [address] [place] [address] Ellen Greer MD [address] [place] [address] Continued Social History Tobacco Use Types [...] Sex Assigned at Female 11/22/2024 3:50 PM EXCELLENCE SPECIALIST Legal Sex Female 7:43 PM CDT Gender Identity Female 11/17/2021 3:08 PM EXCELLENCE SPECIALIST Sexual Orientation Straight 11/17/2021 3: 08 PM EXCELLENCE SPECIALIST Occupation Industry Job Start Date Job End Date Not on file Not on file Not on file Not on file documented as of this encounter Plan of Treatment Upcoming Encounters Date Type Department Care Team (Late Contact Info) Description 04/09/2025 1:00 PM CDT [facility] 3 [facility], [address] [place] [address] Zaynab Cuadra APRN 3 [facility] [address] [place] [address] 06/25/2025 1:00 PM CDT [facility] 3 [facility], [address] [place] [address] Elvira Pagan MD 3 [place] [address] documented as of this encounter Visit Diagnoses Not on filedocumented in this encounter Additional Health Concerns Assessment Noted Time PHQ-9 Depression Total Score: 4 12/01/19 25 1:02 PM EXCELLENCE SPECIALIST documented as of this encounter Care Teams Groover And Turner Relationship Specialty Start Date End Date Ellen Greer MD [address] [place] [address] PCP - General FAMILY PRACTICE 11/30/24 documented as of this encounter
--- OUTSIDE RECORDS SUMMARY | 2025-03-12 16:57 | XMS_ITS | Encounter Summary ---
Author Organization [facility] Address [address] [place] [address] Care Team Providers Care Filler Block Inserter Remover Name Role Phone Heaven Frost NP Primary Care Provider [phone] Ellen Greer MD Primary Care Provider Encounter Details Date Type Department Care Team (Late st Contact Info) Description 03/21/2024 Opentopict [facility] Care - [facility] 3 [facility], [address] [place] [address] Elvira Pagan MD 3 [place] [address] genetics Social History Tobacco Use Types Packs/Day [...] Sex Assigned at Female 11/22/2024 3:50 PM FOOD BEVERAGE SERVER Legal Sex Female 7:43 PM CDT Gender Identity Female 11/17/2021 3:08 PM FOOD BEVERAGE SERVER Sexual Orientation Straight 11/17/2021 3: 08 PM FOOD BEVERAGE SERVER Occupation Industry Job Start Date Job End [...] Care Team (Late st Contact Info) Description 04/09/2025 1:00 PM CDT Office Visit [facility] - [address], [address] [place] [address] Zaynab Cuadra APRN 3 [facility] [address] [place] [address] 06/25/2025 1:00 PM CDT Office Visit [facility] - [facility] 3 [facility], [address] [place] [address] Elvira Pagan MD [address] [place] [address] documented as of this encounter Visit Diagnoses Not on filedocumented in this encounter Additional Health Concerns Assessment Noted Time PHQ-9 Depression Total Score: 0 10/24/20 23 11:23 AM CDT documented as of this encounter Care Teams Filler Block Inserter Remover Relationship Specialty Start Date End Date Heaven Frost NP [address] [place] [address] PCP - General NURSE PRACTITIONER 02/24/24 11/29/24 Ellen Greer MD [address] [place] [address] PCP - General FAMILY PRACTICE 11/30/24 documented as of this encounter
--- OUTSIDE RECORDS SUMMARY | 2025-03-12 16:57 | XMS_ITS | Encounter Summary ---
Author Organization [facility] Address [facility] [place] [address] Care Team Providers Care Dry Cure Worker Name Role Phone Annettarenanbrigida Eda SOLAR SALES- Primary Care Provider + Amanda Bañuelos STORAGE SOLUTIONS ARCHITECT Primary Care Provider Heaven Shah NP Primary Care Provider [phone] Ellen Greer MD Primary Care Provider [phone] Encounter Details Date Type Department Care Team (Late st Contact Info) Description 07/14/2023 Stringbiket Message Enc [facility] Medical Group Multispecialty Care - [facility] 3 [facility], [address] [place] [address] Fifi Reagan, SYLVIE [address] [facility] [place] [address] Since last appointment Social History [...] Sex Assigned at Female 11/22/2024 3:50 PM RELOCATION SPECIALIST Legal Sex Female 7:43 PM CDT Gender Identity Female 11/17/2021 3:08 PM RELOCATION SPECIALIST Sexual Orientation Straight 11/17/2021 3: 08 PM RELOCATION SPECIALIST Occupation Industry Job Start Date Job End Date Not on file Not on file Not on file Not on file documented as of this encounter Plan of Treatment Upcoming Encounters Date Type Department Care Team (Late st Contact Info) Description 04/09/2025 1:00 PM CDT Office Visit [facility] - [facility] 3 [facility], [address] [place] [address] Zaynab Cuadra APRN 3 [facility] [address] [place] [address] 06/25/2025 1:00 PM CDT Office Visit [facility] - [facility] 3 [facility], [address] [place] [address] Elvira Pagan MD 3 [place] [address] documented as of this encounter Visit Diagnoses Not on filedocumented in this encounter Additional Health Concerns Infection Onset Date Last Indicated Resolved Time COVID-19 Rule Out 11/22/2023 11/22/2023 11/22/2023 2:12 AM RELOCATION SPECIALIST COVID-19 Confirmed 11/22/2023 11/22/2023 12:32 AM CDT documented as of this encounter Care Teams Dry Cure Worker Relationship Specialty Start Date End Date Eda Nunn FNP-JOLIE PCP - General Nurse Practitioner Family 08/05/21 Amanda Bañuelos, STORAGE SOLUTIONS ARCHITECT PCP - General NURSE PRACTITIONER 07/20/23 02/23/24 Heaven Frost NP [address] [place] [address] PCP - General NURSE PRACTITIONER 02/24/24 11/29/24 Ellen Greer MD [address] [place] [address] PCP - General FAMILY PRACTICE 11/30/24 documented as of this encounter
--- OUTSIDE RECORDS SUMMARY | 2025-03-12 16:57 | XMS_ITS | Encounter Summary ---
Author Organization [facility] Address [facility] [place] [address] Care Team Providers Care Screening Technician Name Role Phone Abiola Andrews Primary Care Provider [phone] Eda Nunn [facility] Primary Care Provider + Amanda Bañuelos DEVELOPMENT VICE PRESIDENT Primary Care Provider Unavail Heaven eVga DEVELOPMENT VICE PRESIDENT Primary Care Provider [phone] Ellen Greer MD Primary Care Provider [phone] Encounter Details Date Type Department Care Team (Late st Contact Info) Description 04/14/2021 Prism Digitalt Message Enc [facility] Medical Group Family & Internal Medicine [address] [address] Eda Nunn [facility] [address] [place] [address] RE: Question Social History Tobacco [...] Sex Assigned at Female 11/22/2024 3:50 PM CUT OUT STITCHER Legal Sex Female 7:43 PM CDT Gender Identity Female 11/17/2021 3:08 PM CUT OUT STITCHER Sexual Orientation Straight 11/17/2021 3: 08 PM CUT OUT STITCHER Occupation Industry Job Start Date Job End [...] Description 04/09/2025 1:00 PM CDT Office Visit [facility] 3 [facility], [address] [place] [address] Zaynab Cuadra APRN 3 [facility] [address] [place] [address] 06/25/2025 1:00 PM CDT Office Visit [facility] 3 [facility], [address] [place] [address] Elvira Pagan MD 3 [place] [address] documented as of this encounter Visit Diagnoses Not on filedocumented in this encounter Additional Health Concerns Infection Onset Date Last Indicated Resolved Time COVID-19 Rule Out 12/24/2022 12/24/2022 12/24/2022 8:37 PM CDT COVID-19 Rule Out 11/22/2023 11/22/2023 11/22/2023 2:12 AM CUT OUT STITCHER COVID-19 Confirmed 11/22/2023 11/22/2023 12:32 AM CDT documented as of this encounter Care Teams Screening Technician Relationship Specialty Start Date End Date Abiola Andrews APNP [address] [facility] [address] [place] [address] PCP - General Nurse Practitioner Family 07/12/2008/04/21 Eda Nunn FNP-JOLIE [address] [address] PCP - General Nurse Practitioner Family 08/05/21 Amanda Bañuelos, DEVELOPMENT VICE PRESIDENT [address] [address] PCP - General NURSE PRACTITIONER 07/20/23 02/23/24 Heaven Frost NP [address] [place] [address] PCP - General NURSE PRACTITIONER 02/24/24 11/29/24 Ellen Greer MD [address] [place] [address] PCP - General FAMILY PRACTICE 11/30/24 documented as of this encounter
--- OUTSIDE RECORDS SUMMARY | 2025-03-12 16:57 | XMS_ITS | Encounter Summary ---
Author Organization [facility] Address [facility] [place] [address] Care Team Providers Care Zinc Plating Machine Operator Name Role Phone Ellen Greer MD Primary Care Provider [phone] Encounter Details Date Type Department Care Team (Late Contact Info) Description 01/16/2025 cottonTrackst Message Enc [facility] [address] [place] [address] Ellen Greer MD [address] [place] [address] Genetics results Social History Tobacco Use [...] Sex Assigned at Female 11/22/2024 3:50 PM GRAINER MACHINE Legal Sex Female 7:43 PM CDT Gender Identity Female 11/17/2021 3:08 PM GRAINER MACHINE Sexual Orientation Straight 11/17/2021 3: 08 PM GRAINER MACHINE Occupation Industry Job Start Date Job End Date Not on file Not on file Not on file Not on file documented as of this encounter Plan of Treatment Upcoming Encounters Date Type Department Care Team (Late Contact Info) Description 04/09/2025 1:00 PM CDT [facility] 3 [facility], [address] [place] [address] Zaynab Cuadra APRN 3 [facility] [address] [place] [address] 06/25/2025 1:00 PM CDT [facility] 3 [facility], [address] [place] [address] Elvira Pagan MD 3 [place] [address] documented as of this encounter Visit Diagnoses Not on filedocumented in this encounter Additional Health Concerns Assessment Noted Time PHQ-9 Depression Total Score: 4 12/01/19 25 1:02 PM GRAINER MACHINE documented as of this encounter Care Teams Zinc Plating Machine Operator Relationship Specialty Start Date End Date Ellen Greer MD [address] [facility] [place] [address] PCP - General FAMILY PRACTICE 11/30/24 documented as of this encounter
--- OUTSIDE RECORDS SUMMARY | 2025-03-12 16:57 | XMS_ITS | Encounter Summary ---
Author Organization [facility] Address [facility]6 [place] [address] Care Team Providers Care Fish Cake Maker Name Role Phone Amanda Bañuelos NP Primary Care Provider Heaven Shah UI PROGRAMMER Primary Care Provider [phone] Ellen Greer MD Primary Care Provider [phone] Encounter Details Date Type Department Care Team (Late st Contact Info) Description 09/08/2023 DBi Servicest Message Enc [facility] Medical Group Family Medicine - [place] [address] [place] [address] Amanda Bañuelos NP Local Machine Shop Supervisor? Social History Tobacco Use Types Packs/Day Years [...] Sex Assigned at Female 11/22/2024 3:50 PM MAXILLOFACIAL PROSTHODONTIST Legal Sex Female 7:43 PM CDT Gender Identity Female 11/17/2021 3:08 PM MAXILLOFACIAL PROSTHODONTIST Sexual Orientation Straight 11/17/2021 3: 08 PM MAXILLOFACIAL PROSTHODONTIST Occupation Industry Job Start Date Job End Date Not on file Not on file Not on file Not on file documented as of this encounter Progress Notes * Charlette Tatum RN - 09/13/2023 9:38 AM CST I pended a referral to Amanda for her to review. LLOFACIAL PROSTHODONTIST * Adelina Rebekah Ribera - 09/09/2023 2:47 PM CST Patient stopped by the office and wants to know status of her Machine Shop Supervisor referral. She said that Amanda said she was going to check on one with [facility]. Patient was going to one in [place], but wants someone closer. Please follow up with patient. LLOFACIAL PROSTHODONTIST documented in this encounter Plan of Treatment Upcoming Encounters Date Type Department Care Team (Late st Contact Info) Description 04/09/2025 1:00 PM CDT Office Visit [facility] 3 [facility], [address] [place] [address] Zaynab Cuadra APRN 3 [facility] [address] [place] [address] 06/25/2025 1:00 PM CDT Office Visit [facility] 3 [facility], [address] [place] [address] Elivra Pagan MD 3 [place] [address] documented as of this encounter Visit Diagnoses Not on filedocumented in this encounter Additional Health Concerns Infection Onset Date Last Indicated Resolved Time COVID-19 Rule Out 11/22/2023 11/22/2023 11/22/2023 2:12 AM MAXILLOFACIAL PROSTHODONTIST COVID-19 Confirmed 11/22/2023 11/22/2023 12:32 AM CDT Assessment Noted Time PHQ-9 Depression Total Score: 0 07/20/20 11:23 AM CDT documented as of this encounter Care Teams Fish Cake Maker Relationship Specialty Start Date End Date Amanda Bañuelos NP PCP - General NURSE PRACTITIONER 07/20/23 02/23/24 Heaven Frost NP [address] [place] [address] PCP - General NURSE PRACTITIONER 02/24/24 11/29/24 Ellen Greer MD [address] [place] [address] PCP - General FAMILY PRACTICE 11/30/24 documented as of this encounter
--- OUTSIDE RECORDS SUMMARY | 2025-03-12 16:57 | XMS_ITS | Encounter Summary ---
Author Organization [facility] Address [facility] [place] [address] Care Team Providers Care Airport Skilled Maintenance Supervisor Name Role Phone Eda Nunn [facility] Primary Care Provider + Amanda Bañuelos VOLUNTEER COORDINATOR Primary Care Provider Heaven Shah VOLUNTEER COORDINATOR Primary Care Provider [phone] Ellen Greer MD Primary Care Provider [phone] Encounter Details Date Type Department Care Team (Late st Contact Info) Description 02/17/2023 [employer] Message Enc [facility] Medical [facility] Family & Internal Medicine [address] [address] Eda Nunn [facility] [address] [place] [address] Diarrhea with Blood Social History [...] Sex Assigned at Female 11/22/2024 3:50 PM J2EE APPLICATION DEVELOPER Legal Sex Female 7:43 PM CDT Gender Identity Female 11/17/2021 3:08 PM J2EE APPLICATION DEVELOPER Sexual Orientation Straight 11/17/2021 3: 08 PM J2EE APPLICATION DEVELOPER Occupation Industry Job Start Date Job End [...] PM CDT Phyllis Carroll RN Active * [place] Suicide Severity Rating Scale (Screener/Recent Self-Report) Question [...] Description 04/09/2025 1:00 PM CDT [facility] [address], [address] [place] [address] Zaynab Cuadra JimWALLY [address] [facility] [address] [place] [address] 06/25/2025 1:00 PM CDT [facility] [address], [address] [place] [phone] Elvira Pagan MD [address] [place] [address] documented as of this encounter Visit Diagnoses Not on filedocumented in this encounter Additional Health Concerns Infection Onset Date Last Indicated Resolved Time COVID-19 Rule Out 11/22/2023 11/22/2023 11/22/2023 2:12 AM J2EE APPLICATION DEVELOPER COVID-19 Confirmed 11/22/2023 11/22/2023 12:32 AM CDT documented as of this encounter Care Teams Airport Skilled Maintenance Supervisor Relationship Specialty Start Date End Date Eda Nunn FNP- PCP - General Nurse Practitioner Family 08/05/21 Amanda Bañuelos VOLUNTEER COORDINATOR PCP - General NURSE PRACTITIONER 07/20/23 02/23/24 Heaven Frost NP [address] [place], [place] [phone] PCP - General NURSE PRACTITIONER 02/24/24 11/29/24 Ellen Greer MD [address] [place] [address] PCP - General FAMILY PRACTICE 11/30/24 documented as of this encounter
--- OUTSIDE RECORDS SUMMARY | 2025-03-12 16:57 | XMS_ITS | Encounter Summary ---
Author Organization [facility] Address [address] [place] [address] Care Team Providers Care Naval Aircrewman Name Role Phone Esperanza Manrique MD Primary Care Provider [phone] Kianna Mo PHONOGRAPH CARTRIDGE ASSEMBLER Primary Care Provider Abiola DuvallNP Primary Care Provider [phone] Eda Nunn [facility] Primary Care Provider + Amanda Bañuelos PHONOGRAPH CARTRIDGE ASSEMBLER Primary Care Provider Octavioa Heaven Vega PHONOGRAPH CARTRIDGE ASSEMBLER Primary Care Provider [phone] Ellen Greer MD Primary Care Provider [phone] Encounter Details Date Type Department Care Team (Late st Contact Info) Description 05/18/2016 Abstract [facility] CONVERSION [address] [place] [address] , Generic Conversion, Social History Tobacco Use Types Packs/Day Years Used Date Smoking Tobacco: Never Assessed Comments Unknown Sex and Gender Information Value Date Recorded Sex Assigned at Female 11/22/2024 3:50 PM E MAIL SYSTEM ADMINISTRATOR Legal Sex Female 7:43 PM CDT Gender Identity Female 11/17/2021 3:08 PM E MAIL SYSTEM ADMINISTRATOR Sexual Orientation Straight 11/17/2021 3: 08 PM E MAIL SYSTEM ADMINISTRATOR documented as of this encounter Plan of Treatment Upcoming Encounters Date Type Department Care Team (Late Contact Info) Description 04/09/2025 1:00 PM CDT Office Visit [facility] Medical [facility] Multispecialty Care - [address], [address] [place] [phone] Zaynab Cuadra APRN [address] [facility] [address] [place] [address] 06/25/2025 1:00 PM CDT Office Visit [facility] Medical Group Multispecialty Care - [facility] [address] [facility], [address] [place] [phone] Elvira Pagan MD [address] [place] [address] documented as of this encounter Visit Diagnoses Not on filedocumented in this encounter Additional Health Concerns Infection Onset Date Last Indicated Resolved Time COVID-19 Rule Out 12/24/2022 12/24/2022 12/24/2022 8:37 PM CDT COVID-19 Rule Out 11/22/2023 11/22/2023 11/22/2023 2:12 AM E MAIL SYSTEM ADMINISTRATOR COVID-19 Confirmed 11/22/2023 11/22/2023 12:32 AM CDT documented as of this encounter Care Teams Naval Aircrewman Relationship Specialty Start Date End Date Esperanza Manrique MD PCP - General INTERNAL MEDICINE 01/21/18 09/20/18 Kianna Mo, PHONOGRAPH CARTRIDGE ASSEMBLER PCP - General NURSE PRACTITIONER 09/21/18 07/11/20 Abiola Andrews APNP [address] [place] [address] PCP - General Nurse Practitioner Family 07/12/2008/04/21 Eda Nunn FNP-BC [address] [place] [address] PCP - General Nurse Practitioner Family 08/05/21 Amanda Bañuel[place] [address] [address] PCP - General NURSE PRACTITIONER 07/20/23 02/23/24 Heaven Frost NP [address] [place] [address] PCP - General NURSE PRACTITIONER 02/24/24 11/29/24 Ellen Greer MD [address] [place] [address] PCP - General FAMILY PRACTICE 11/30/24 documented as of this encounter
--- OUTSIDE RECORDS SUMMARY | 2025-03-12 16:57 | XMS_ITS | Clinical Summary ---
Author Organization [facility] Address [address] [place] [address] Care Team Providers Care Structural Steel Erection Supervisor Name Role Phone Heaven Frost KANG Primary Care Provider [phone] Source Comments [facility],non-owned Affiliates and Associated Physician Practices is amultiple site organization consisting of ambulatory clinics and hospital sitesin [place], [place], [place] and [place]. This disclosure is being madepursuant to the Care Everywhere program and may not contain all information available regarding this patient. Last updated 18.[facility] Allergies Active Allergy Reactions Criticality Noted Date Comments Novocain Headache,Nausea and/or Vomiting 04/27 Medications * Be aware that medications may not be up to date on this document. Alwaysverify current medications with the patient. HYDROcodone-acet aminophen (Holdrege) 7.5-325 MG tablet Take 1 (one) tablet [...] K+2 potassium tabs, 300 mg TID. (From [facility]. ) Active Social History Tobacco Use Types [...] this topic Insurance MEDICARE AETNA Care Teams Structural Steel Erection Supervisor Relationship Specialty Start Date End Date Heaven Frost APRN-ALEN [address] [place] [address] PCP - General Allergy and Immunology 05/10/24
--- OUTSIDE RECORDS SUMMARY | 2025-03-12 16:57 | XMS_ITS | Encounter Summary ---
Author Organization [facility] Address [facility] [place] [address] Care Team Providers Care Peoplesoft Taleo Manager Name Role Phone Amanda Bañuelos NP Primary Care Provider Heaven Shah NP Primary Care Provider [phone] Ellen Greer MD Primary Care Provider [phone] Encounter Details Date Type Department Care Team (Late Contact Info) Description 11/25/2023 [employer] Message Enc [facility] [address] [place] [address] Amanda Bañuelos, SYLVIE Covid follow up Social [...] Sex Assigned at Female 11/22/2024 3:50 PM MANAGER TRANSPLANT Legal Sex Female 7:43 PM CDT Gender Identity Female 11/17/2021 3:08 PM MANAGER TRANSPLANT Sexual Orientation Straight 11/17/2021 3: 08 PM MANAGER TRANSPLANT Occupation Industry Job Start Date Job End Date Not on file Not on file Not on file Not on file documented as of this encounter Plan of Treatment Upcoming Encounters Date Type Department Care Team (Late Contact Info) Description 04/09/2025 1:00 PM CDT [facility] [address] [facility], [address] [place] [address] Zaynab Cuadra APRN [address] [facility] [address] [place] [address] 06/25/2025 1:00 PM CDT [facility] [address] [facility], [address] [place] [address] Elvira Pagan MD [address] [place] [address] documented as of this encounter Visit Diagnoses Not on filedocumented in this encounter Additional Health Concerns Infection Onset Date Last Indicated Resolved Time COVID-19 Confirmed 11/22/2023 11/22/2023 12:32 AM CDT Assessment Noted Time PHQ-9 Depression Total Score: 0 07/20/20 23 11:23 AM CDT documented as of this encounter Care Teams Peoplesoft Taleo Manager Relationship Specialty Start Date End Date Amanda Bañuelos NP PCP - General NURSE PRACTITIONER 07/20/23 02/23/24 Heaven Frost NP [address] [place] [address] PCP - General NURSE PRACTITIONER 02/24/24 11/29/24 Ellen Greer MD [address] [place] [address] PCP - General FAMILY PRACTICE 11/30/24 documented as of this encounter
--- OUTSIDE RECORDS SUMMARY | 2025-03-12 16:58 | XMS_ITS | Encounter Summary ---
Author Organization [facility] Address [address] [place] [address] Care Team Providers Care Element Burner Name Role Phone Kianna Mo STENOGRAPHER PRINT SHOP Primary Care Provider Abiola DuvallNP Primary Care Provider [facility] Primary Care Provider + Amanda Bañuelos STENOGRAPHER PRINT SHOP Primary Care Provider Heaven Shah STENOGRAPHER PRINT SHOP Primary Care Provider [phone] Ellen Greer MD Primary Care Provider [phone] Encounter Details Date Type Department Care Team (Late st Contact Info) Description 01/26/2019 ICE SCRAPER ONLY [facility] Medical Group Priority Care - [address] [place] [address] Scanned, Documents Social History Tobacco Use Types Packs/Day Years Used Date Smoking Tobacco: Former Cigarettes 1 7 983 - 1989 Smokeless Tobacco: Never Alcohol Use Standard Drinks/Week Comments No 0 (1 standard drink = 0.6 oz pur e alcohol) Comments No Sex and Gender Information Value Date Recorded Sex Assigned at Female 11/22/2024 3:50 PM GANG VIBRATOR OPERATOR Legal Sex Female 7:43 PM CDT Gender Identity Female 11/17/2021 3:08 PM GANG VIBRATOR OPERATOR Sexual Orientation Straight 11/17/2021 3: 08 PM GANG VIBRATOR OPERATOR Occupation Industry Job Start Date Job End Date Not on file Not on file Not on file Not on file documented as of this encounter Progress Notes * Zscanned, Documents - 01/26/2019 12:00 AM CDT MEIR LUCIANO MD: ACCT: [id number] ADMIT/SERVICE DATE: 01/25/19 DISCHARGE DATE: : 1950 PT TYPE: REG CLI SEX: F ORD SITE: [facility] CHART DOCUMENT DATE COLLECTED: 01-25-2019 HOSPITAL NO: [id number] DATE RECEIVED: 01-25-2019 CYTOLOGY REPORT SPECIMEN SOURCE: CYST FLUID-RIGHT WRIST SPECIMEN DESCRIPTION: 1 ML YELLOW, CLOUDY, VERY MUCOID FLUID. CELL BLOCK MADE 01-25-19 GENERAL: NORMAL SQUAMOUS CELLS CELL BLOCK RESULTS: BENIGN SQUAMOUS CELLS COMMENT: THIN PREP: SCANTY BENIGN CELLS. DIAGNOSIS: NEGATIVE FOR MALIGNANT CELLS. ELECTRONICALLY SIGNED BY ODETTE GAUTHIER MD 01/26/2019 12:05 P / A / JW DOC NO: [id number] documented in this encounter Plan of Treatment Upcoming Encounters Date Type Department Care Team (Late st Contact Info) Description 04/09/2025 1:00 PM CDT [facility] [address] [facility], [address] [place] [phone] Zaynab Cuadra APRN 3 [facility] [address] [place] [address] 06/25/2025 1:00 PM CDT [facility] [address] [facility], [address] [place] [phone] Elvira Pagan MD [address] [place] [address] documented as of this encounter Visit Diagnoses Not on filedocumented in this encounter Additional Health Concerns Infection Onset Date Last Indicated Resolved Time COVID-19 Rule Out 12/24/2022 12/24/2022 12/24/2022 8:37 PM CDT COVID-19 Rule Out 11/22/2023 11/22/2023 11/22/2023 2:12 AM GANG VIBRATOR OPERATOR COVID-19 Confirmed 11/22/2023 11/22/2023 12:32 AM CDT documented as of this encounter Care Teams Element Burner Relationship Specialty Start Date End Date Kianna Mo, STENOGRAPHER PRINT SHOP PCP - General NURSE PRACTITIONER 09/21/18 07/11/20 Abiola Andrews APNP [address] [address] PCP - General Nurse Practitioner Family 07/12/2008/04/21 Eda Nunn FNP-JOLIE [address] [address] PCP - General Nurse Practitioner Family 08/05/21 Amanda Bañuelos, STENOGRAPHER PRINT SHOP [address] [address] PCP - General NURSE PRACTITIONER 07/20/23 02/23/24 Heaven [place] [address] PCP - General NURSE PRACTITIONER 02/24/24 11/29/24 Ellen Greer MD [address] [place] [address] PCP - General FAMILY PRACTICE 11/30/24 documented as of this encounter
--- OUTSIDE RECORDS SUMMARY | 2025-03-12 16:58 | XMS_ITS | Clinical Summary ---
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 Other acute back pain 05/15/2020 Edwards hump 04/20/2020 Multiple thyroid nodules 07/19/2019 Ganglion [...] 12/06/2022 Lump of right wrist 12/09/2018 12/07/19 23 Nephrolithiasis 11/17/2018 11/17/2018 Hypokalemia 11/17/2018 02/14/2023 Kidney stone on left side 08/31/2018 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 12/06/2022 Calcium disorder 12/30/2017 12/06/2022 Occult blood positive stool 04/27/2017 12/06/2022 Constipation 04/20/2017 12/06/2022 Kidney stone on right side 05/27/2016 0 12/06/2022 Encounters Date Type Department Care Team Description 03/06/2025 MyChart Message Enc [facility] Family Medicine - [place] [id number] [place] [address] Ellen Greer MD Grove Worker referral needed 02/27/2025 Results Follow-Up [facility] Family Medicine - [place] [address] [place] [address] Concepcion Mckeon MA COMPREHENSIVE METABOLIC PANEL, VITAMIN B-12 02/22/2025 MyChart Message Enc [facility] Multispecialty Care - [facility] [address] [facility], [address] [place] [id number] Elvira Pagan MD 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 02/13/2025 2:41 PM CDT - 02/13/2025 11:59 PM CDT Hospital Encounter [facility] [address] Kacey Vela MD Discharge Disposition: Home or Self Care (Routine Discharge) 02/13/2025 Travel 02/12/2025 10:58 AM CDT - 02/12/2025 11:59 PM CDT Hospital Encounter [facility] [place] [address] Kacey Vela MD Discharge Disposition: Home or Self Care (Routine Discharge) 02/08/2025 12:58 PM CDT - 02/08/2025 11:59 PM CDT Hospital Encounter [facility] [place] [address] Kacey Vela MD Discharge Disposition: Home or Self Care (Routine Discharge) 02/08/[address] [address] Ellen Greer MD Returned Call (Called and spoke to pt, re updates on contacting Dr Laird and her b-12 injections) 02/08/2025 Travel 02/08/[address] [address] Ellen Greer MD Referral (Called [facility] referral we sent in November per ankita records received but uploated labs were dark) 02/08/2025 POPRAGE[address] Message Enc [address] [address] Ellen Greer MD Update 02/06/2025 Telephone [facility] - [address], [address] [place] [address] Elvira Pagan MD Lab Results 02/05/2025 Results Follow-Up [facility] - [facility] [address] [facility], [address] [place] [address] Elvira Pagan MD PARANEOPLASTIC AB W/RFX TITER 01/26/2025 3:30 PM CDT - 01/26/2025 11:59 PM CDT Hospital Encounter [facility] [place], [place] [id number] Kacey Vela MD Discharge Disposition: Home or Self Care (Routine Discharge) 01/26/2025 Orders Only [facility] [place] [address] Kacey Vela MD 01/26/2025 Travel 01/26/[address] [address] Ellen rGeer MD Medication Information (Julia Chen pt advocate for health care had called re pt) 01/24/[address] [address] Ellen Greer MD Referral (As per pt notes she is asking for exterior designer please advise) 01/23/[address] [address] Ellen Greer MD Problem (Pt has experienced another episode of the paralysis on Wednesday pt was unable to walk up her drive way, per Julia Chen, pt tried to video but the file was too large to accept, pt had assistance but wanted MD to know that it did affect her speach) 01/22/[address] [address] Ellen Greer MD Error 01/17/2025 MyChart Message [facility] Multispecialty Care - [facility] [address] [facility], [address] [place] [address] Elvira 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 01/16/2025 MyChart Message [address] [address] Ellen Greer MD Genetics results 01/15/[address] [phone] Ellen Greer MD Question (Re referral to Neuro muscular clinic at [facility]) 01/02/2025 1:00 PM CDT Office Visit [address] [address] Ellen Greer MD Hypertension; Imm/Inj (B-12); Med Refills (Refills needed on flomax); Medication (Hydrocodone/apap 5/325 too strong pt takes 3/4 tab used to take 7.5 and cut in half); ER F/U (Went to [facility] er for flank pain yesterday) 01/01/2025 4:36 PM CDT - 01/01/2025 9:05 PM CDT Emergency [facility] [place] [address] Markus Pizarro MD Flank Pain Discharge Disposition: Home or Self Care (Routine Discharge) 01/01/2025 Travel 12/27/[address] [phone] Ellen Greer MD Change Of Condition (Rec'd a call from Julia Chen nurse advocate re pt referral) 12/27/2024 Patient Outreach [address] [phone] Ellen Greer MD Pre-visit Gap Closure 12/26/2024 Telephone [facility] - [address], [address] [place] [address] Elvira Pagan MD Medication 12/22/2024 2:05 PM CDT - 12/22/2024 11:59 PM CDT Hospital Encounter [facility] [place], [place] [id number] Elvira Pagan MD Discharge Disposition: Home or Self Care (Routine Discharge) 12/22/2024 1:20 PM CDT Office Visit [facility] - [address], [address] [place] [address] Elvira Pagan MD Follow Up 12/22/2024 Scan [facility] INFO SRVCS Scanned, [facility] (SCAN) 12/22/2024 Travel 12/13/2024 Orders Only [facility] [place] [address] Heaven Frost NP 12/12/[address] [phone] Ellen Greer MD Referral (Patient advocate Questions / Concerns. 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 Legal Sex Female 7:43 PM CDT Gender Identity Female 11/17/2021 3:08 PM SPORTS TEACHER Sexual Orientation Straight 11/17/2021 3: 08 PM SPORTS TEACHER Occupation Industry Job Start Date Job End [...] P M CDT Height 165.1 cm (5' 5) 01/02/2025 1:00 PM CDT Body Mass Index 33.15 01/02/2025 1:00 PM CDT Plan of Treatment Upcoming Encounters Date Type Department Care Team (Late st Contact Info) Description 04/09/2025 1:00 PM CDT [facility] [address] [facility], [address] [place] [phone] Zaynab Cuadra APRN [address] [facility] [address] [place] [address] 06/25/2025 1:00 PM CDT [facility] - [facility] [address] [facility], [address] [place] [address] Elvira Pagan MD [address] [place] [address] Health Maintenance Due Date Last Done Comments [...] Colonoscopy (10 Years) Discontinued 05/06/2017, PHQ-2 (Physician [place]) Completed 01/02/2025 Dexa Scan (General) Completed 02/08/2025, [...] Procedure Name Priority Date/Time Associated Diagnosis Comments US THYROID Routine 02/13/2025 3:31 PM CDT Nontoxic single thyroid nodule CREATININE URINE 24 HR Routine 8:00 AM CDT Hypercalcinuria CALCIUM URINE 24 HR Routine 02/12/2025 8 [...] CDT CT ABD+PEL KIDNEY STONE STAT 01/02/20 25 4:35 PM CDT URINE BACTERIA CULTURE STAT 3:47 PM CDT HC URINALYSIS AUTO W/O MICRO STAT 01/01/2025 3:47 PM CDT PARANEOPLASTIC AB W/RFX TITER Routine 12/22/2024 2:16 PM CDT Neuropathy OUTSIDE LAB (SCAN ORDER) 12/22/2024 OUTSIDE LAB (SCAN ORDER) 12/22/2024 OUTSIDE LAB (SCAN ORDER) 12/22/2024 LIPID PANEL Routine 11/03/2022 8:23 AM SPORTS TEACHER Hypertriglyceridem ia COLONOSCOPY GENERIC (SCAN ORDER) Routine 05/06/2017 from Last 3 Months or Most Recently Relevant to Health Maintenance Results * US THYROID (02/13/2025 3:31 PM CDT) Anatomical Region Laterality Modality Neck Ultrasound 02/27/2025 11:2 3 AM CDT Impressions 02/27/2025 11:29 AM CDT =====IMPRESSION:===== 1. Right thyroid superior 1.4 cm TR 4 nodule. Recommendation: Ultrasound follow-up 1, 2, 3 and 5 years 2. Couple of additional nodules do not meet imaging criteria for sampling or follow-up. ACR TI-RADS recommendations: TR5, highly suspicious (greater than or equal to 7 points) - FNA if greater than or equal to 1 cm, follow-up if 0.5-0.9 cm every year for 5 years TR4, moderately suspicious (4-6 points) - FNA if greater than or equal to 1.5cm, follow-up if 1-1.4 cm in 1, 2, 3 and 5 years TR3, mildly suspicious (3 points) - FNA if greater than or equal to 2.5cm, follow-up if 1.5-2.4 cm in 1, 3 and 5 years TR2, not suspicious (2 points) and TR1, benign (0 points) - No FNA or follow-up * ACR TI-RADS recommends no more than two nodules with the highest ACR TI-RADS total point should be biopsied and no more than four nodules should be followed. ACR TI-RADS (Thyroid Imaging and Reporting Data System) is a structured system for interpreting and reporting thyroid imaging studies with management guidelines. https://www.acr.org/Clinical-Resources/Besfjnlgq-dsl-Qgmj-Systems/TI-RADS Ordered By: KACEY VELA Interpreted By: Светлана Reyes MD, 02/27/2025 11:23 AM Narrative 02/27/2025 11:29 AM CDT [address] [address] Exam: Thyroid ultrasound Exam date and time: 02/13/2025 2:47 PM Indication: 74 female. NONTOXIC SINGLE THYROID NODULE . Comparison: None Technique: Grayscale and color flow ultrasound examination of the thyroid gland was performed. Ultrasound findings: Right lobe: Size: Measures 4.7 x 2.1 x 2.1 cm. Parenchyma: Homogeneous echotexture. Normal echogenicity and vascularity. Nodule(s): 1. Superior 1.4 x 1.0 x 0.7 cm hypoechoic solid, minimally lobulated. TR 4 2. Central part solid part cystic 1.0 x 0.6 x 0.6. TR 2 3. Part solid and cystic 0.8 x 0.7 x 0.7 cm. TR 2 Left lobe: Size: Measures 4.5 x 2.3 x 2.0 cm. Parenchyma: Homogeneous echotexture. Normal echogenicity and vascularity. Nodule(s): 1. 0.9 cm spongiform Isthmus: 4.7 mm in thickness (AP). Procedure Note Светлана Reyes MD - 02/27/[address] [address] Exam: Thyroid ultrasound Exam date and time: 02/13/2025 2:47 PM Indication: 74 female. NONTOXIC SINGLE THYROID NODULE . Comparison: None Technique: Grayscale and color flow ultrasound examination of the thyroidgland was performed. Ultrasound findings: Right lobe: Size: Measures 4.7 x 2.1 x 2.1 cm. Parenchyma: Homogeneous echotexture. Normal echogenicity andvascularity. Nodule(s): 1. Superior 1.4 x 1.0 x 0.7 cm hypoechoic solid, minimally lobulated. TR4 2. Central part solid part cystic 1.0 x 0.6 x 0.6. TR 2 3. Part solid and cystic 0.8 x 0.7 x 0.7 cm. TR 2 Left lobe: Size: Measures 4.5 x 2.3 x 2.0 cm. Parenchyma: Homogeneous echotexture. Normal echogenicity andvascularity. Nodule(s): 1. 0.9 cm spongiform Isthmus: 4.7 mm in thickness (AP). =====IMPRESSION:===== 1. Right thyroid superior 1.4 cm TR 4 nodule. Recommendation: Ultrasound follow-up 1, 2, 3 and 5 years 2. Couple of additional nodules do not meet imaging criteria for samplingor follow-up. ACR TI-RADS recommendations: TR5, highly suspicious (greater than or equal to 7 points) - FNA ifgreater than or equal to 1 cm, follow-up if 0.5-0.9 cm every year for 5 years TR4, moderately suspicious (4-6 points) - FNA if greater than or equalto 1.5cm, follow-up if 1-1.4 cm in 1, 2, 3 and 5 years TR3, mildly suspicious (3 points) - FNA if greater than or equal to2.5cm, follow-up if 1.5-2.4 cm in 1, 3 and 5 years TR2, not suspicious (2 points) and TR1, benign (0 points) - No FNA or follow-up * ACR TI-RADS recommends no more than two nodules with the highest ACR TI-RADS total point should be biopsied and no more than four nodulesshould be followed. ACR TI-RADS (Thyroid Imaging and Reporting Data System) is a structured system for interpreting and reporting thyroid imaging studies with management guidelines. https://www.acr.org/Clinical-Resources/Wbycjgqbx-gbp-Qxvx-Systems/TI-RADS Ordered By: KACEY VELA Interpreted By: Светлана Reyes MD, 02/27/2025 11:23 AM us Kacey Vela MD ULTRASOUND Final Result * CREATININE URINE 24 HR (02/12/2025 8:00 AM CDT) CREATININE (U) 34.2 28 - 217 MG/DL 02/12/2025 5:42 PM CDT [facility] 24 HR VOL (MLS) 3,100 ML 5:42 PM CDT [facility] WEIGHT 199 LBS 02/12/2025 5:42 PM CDT [facility] CREATININE 24HR (U) 1.1 0.7 - 1.5 GM/24HR 02/12/2025 5:42 PM CDT [facility] CREATININE/24 HRS 11.7 11.0 - 20.0 mg/kg/24HR S 02/12/2025 5:42 PM CDT [facility] URINE SPECIMEN / Unknown 02/12/2025 8:00 AM CDT Kacey Vela MD URINE ORDERABLES Final Result [facility] [address] [place] [address], [place] [phone] * (ABNORMAL) CALCIUM URINE 24 HR (02/12/2025 8:00 AM CDT) CALCIUM (U) 11.5 MG/DL 02/12/2025 2:44 PM CDT [facility] Comment:REFERENCE RANGE NOT ESTABLISHED CALC 24HR CA (U) 356.5(H) 42.0 - 353.0 MG/24HR 02/12/2025 2:44 PM CDT [facility] Comment:COLLECTION ONLY 23 H OURS, REFERENCE RANGE DOES NOT APPLY VOLUME (U) 3,100 ML 02/12/2025 2:27 PM CDT [facility] URINE SPECIMEN / Unknown 02/12/2025 8:00 AM CDT Kacey Vela MD URINE ORDERABLES Final Result [facility] [address] [place] [address], [id number] * BONE DENSITY/DEXA (02/08/2025 1:47 PM CDT) [...] 1:51 PM Narrative 02/08/2025 1:52 PM CDT [facility] [address] [place] [address] EXAMINATION: BONE DENSITY/DEXA INDICATIONS: Asymptomatic menopausal state [...] Procedure Note Waqas Bowser MD - 02/08/2025 [facility] [address] [place] [address] EXAMINATION: BONE DENSITY/DEXA INDICATIONS: Asymptomatic menopausal state [...] - 3.98 PG/ML 01/27/2025 12:02 PM CDT [facility] 01/26/2025 3:41 PM CDT Kacey Vela MD LABORATORY Final Result [facility] [address] [place] [address], [place] [phone] * (ABNORMAL) BASIC METABOLIC PANEL (01/26/2025 3:41 PM CDT) GLUCOSE 125(H) 70 - 99 MG/DL 01/26/2025 4:24 PM CDT [facility] BUN 8 7 - 18 MG/DL 01/26/2025 4:24 PM CDT [facility] CREATININE S/P/B 0.82 0.55 - 1.02 MG/DL 01/26/2025 4:24 PM CDT [facility] SODIUM S/P/B 142 136 - 145 MMOL/L 01/26/2025 4:24 PM CDT [facility] POTASSIUM S/P/B 3.1(L) 3.5 - 5.1 MMOL/L 01/26/2025 4:24 PM CDT [facility] CHLORIDE S/P/B 109 97 - 115 MMOL/L 01/26/2025 4:24 PM CDT [facility] CO2 24.9 21 - 32 MMOL/L 01/26/2025 4:24 PM CDT [facility] CALCIUM S/P/B 9.4 8.5 - 10.1 MG/DL 01/26/2025 4:24 PM CDT [facility] ANION GAP 8.1 2 - 10 MMOL/L 01/26/2025 4:24 PM CDT [facility] BUN CREATININE RATIO 9.8 6 - 26 01/26/2025 4:24 PM CDT [facility] GFR ESTIMATE 74(L) >90 ML/MIN/1.7 3 M2 01/26/2025 4:24 PM CDT [facility] Comment: NOTE: eGFR is not calculated for patients <18 years of age or gender unknown. This is an estimated GFR calculation using the new CKD EPI creatinine equation without race and so does not require a correction factor for race. This estimated GFR should not be used for calculating drug doses. 01/26/2025 3:41 PM CDT Kacey Vela MD LABORATORY Final Result [facility] [address] [place] [address], [place] [phone] * (ABNORMAL) COMPREHENSIVE METABOLIC PANEL (01/01/2025 5:24 PM CDT) [facility] GLUCOSE 101(H) 70 - 99 MG/DL 01/01/2025 6:36 PM CDT [facility] BUN 12 7 - 18 MG/DL 01/01/2025 6:36 PM CDT [facility] CREATININE S/P/B 0.79 0.55 - 1.02 MG/DL 01/01/2025 6:36 PM CDT [facility] SODIUM S/P/B 138 136 - 145 MMOL/L 01/01/2025 6:36 PM CDT [facility] POTASSIUM S/P/B 3.6 3.5 - 5.1 MMOL/L 01/01/2025 6:36 PM CDT [facility] CHLORIDE S/P/B 109 97 - 115 MMOL/L 01/01/2025 6:36 PM CDT [facility] CO2 18.6(L) 21 - 32 MMOL/L 01/01/2025 6:36 PM CDT [facility] CALCIUM S/P/B 9.3 8.5 - 10.1 MG/DL 01/01/2025 6:36 PM CDT [facility] BILIRUBIN TOTAL S/P/B 0.8 0.2 - 1.2 MG/DL 01/01/2025 6:36 PM CDT [facility] Comment: THIS ASSAY IS NOT RECOMMENDED FOR PATIENTS UNDERGOING TREATMENT WITH ELTROMBOPAG DUE TO THE POTENTIAL FOR FALSELY ELEVATED RESULTS. TOTAL PROTEIN S/P/B 7.2 6.4 - 8.2 G/DL 01/01/2025 6:36 PM CDT [facility] ALBUMIN S/P/B 3.5 3.4 - 5.0 G/DL 01/01/2025 6:36 PM CDT [facility] AST 37 15 - 37 U/L 01/01/2025 6:36 PM CDT [facility] ALT 45 14 - 55 U/L 01/01/2025 6:36 PM CDT [facility] ALKALINE PHOSPHATASE S/P/B 77 50 - 136 U/L 01/01/2025 6:36 PM CDT [facility] ANION GAP 10.4(H) 2 - 10 MMOL/L 01/01/2025 6:36 PM CDT [facility] BUN CREATININE RATIO 15.2 6 - 26 01/01/2025 6:36 PM CDT [facility] A/G RATIO 0.9(L) 1.0 - 2.0 RATIO 01/01/2025 6:36 PM CDT [facility] GFR ESTIMATE 77(L) >90 ML/MIN/1.7 3 M2 01/01/2025 6:36 PM CDT [facility] Comment: NOTE: eGFR is not calculated for patients <18 years of age or gender unknown. This is an estimated GFR calculation using the new CKD EPI creatinine equation without race and so does not require a correction factor for race. This estimated GFR should not be used for calculating drug doses. 01/01/2025 5:24 PM CDT Prasad Salas NP LABORATORY Final Result [facility] [address] [place] [address], [place] [phone] * (ABNORMAL) CBC W/DIFF AUTOMATED (01/01/2025 5:24 PM CDT) WBC 9.93 4.5 - 11.0 x10'3/uL 01/01/2025 6:04 PM CDT [facility] RBC 4.46 4.20 - 5.40 x10'6/uL 01/01/2025 6:04 PM CDT [facility] HGB 13.6 12.0 - 16.0 G/DL 01/01/2025 6:04 PM CDT [facility] HCT 42.6 38.0 - 48.0 % 01/01/2025 6:04 PM CDT [facility] MCV 95.5 81.0 - 99.0 FL 01/01/2025 6:04 PM CDT [facility] MCH 30.5 27.0 - 31.0 PG 01/01/2025 6:04 PM CDT [facility] MCHC 31.9(L) 32.0 - 36.0 G/DL 01/01/2025 6:04 PM CDT [facility] RDW 12.6 11.5 - 14.5 % 01/01/2025 6:04 PM CDT [facility] PLT 294 130 - 400 x10'3/uL 01/01/2025 6:04 PM CDT [facility] MPV 10.3 9.3 - 12.2 FL 01/01/2025 6:04 PM CDT [facility] DIFFERENTIAL TYPE AUTOMATED DIFFERENTIAL 01/01/2025 6:04 PM CDT [facility] NEUTROPHILS % 59.4 % 01/01/2025 6:04 PM CDT [facility] LYMPHOCYTES % 28.5 % 01/01/2025 6:04 PM CDT [facility] MONOCYTES % 7.2 % 01/01/2025 6:04 PM CDT [facility] EOSINOPHILS 3.8 % 01/01/2025 6:04 PM CDT [facility] BASOPHILS 0.8 % 01/01/2025 6:04 PM CDT [facility] IMMATURE GRANS % 0.3 % 01/02/20 6:04 PM CDT [facility] ABS. NEUTROPHILS 5.90 1.80 - 7.70 x10'3/uL 01/01/2025 6:04 PM CDT [facility] ABS. LYMPHOCYTES 2.83 1.00 - 4.80 x10'3/uL 01/01/2025 6:04 PM CDT [facility] ABS. MONOCYTES 0.71 0.24 - 0.86 x10'3/uL 01/01/2025 6:04 PM CDT [facility] ABS. EOSINOPHILS 0.38(H) 0.04 - 0.36 x10'3/uL 01/01/2025 6:04 PM CDT [facility] ABS. BASOPHILS 0.08 0.01 - 0.08 x10'3/uL 01/01/2025 6:04 PM CDT [facility] ABS. IMMATURE GRANULOCYTES 0.03 0.00 - 0.49 x10'3/uL 01/01/2025 6:04 PM CDT [facility] 01/01/2025 5:24 PM CDT Prasad Salas GENERATION ENGINEER LABORATORY Final Result [facility] [address] [place] [address], [place] [phone] * CT ABD+PEL KIDNEY STONE (01/01/2025 4:35 PM CDT) Anatomical Region Laterality Modality Abdomen Computed Tomogra phy 01/01/2025 4:56 PM CDT Impressions 01/01/2025 5:03 PM CDT IMPRESSION: 1. No convincing acute other significant localizing abdominal pelvic process, findings seen to provide a potential explanation for the patient's symptoms. 2. Equivocal punctate nonobstructing right renal solitary stone versus parenchymal calcification. No other urinary system stones identified. No collecting system obstruction 3. Leiomyomatous uterus. 4. Hepatic steatosis and mild hepatomegaly 5. Other nonemergent, incidental, stable and potential chronic findings as discussed in the report body above.. Ordered By: PRASAD SALAS Interpreted By: Светлана Reyes MD, 01/01/2025 4:56 PM Narrative 01/01/2025 5:03 PM CDT [facility] [address] [place], [place] [address] Exam: CT abdomen and pelvis without contrast Exam Date/Time: 01/01/2025 4:26 PM Indication: 74 female. Complaint of flank pain. Evaluation for kidney stones. Reported history of nephrolithiasis Comparison: CT abdomen pelvis 02/17/2023 Technique: Computed tomography of the abdomen and pelvis was performed without contrast. A dose lowering technique was used for this procedure, which may include, but is not limited to, dose reduction technique, automated exposure control, the use of iterative reconstruction, and ALARA (As Low As Reasonably Achievable) / Image Gently techniques. CT findings: LOWER CHEST Normal cardiac size. No pericardial or pleural effusion. Minimal streaky linear subsegmental atelectasis the lung bases and head couple of punctate calcified granulomas. Limited noncontrast assessment of the soft tissues of viscera. UPPER ABDOMEN Liver and bile ducts: Mild hepatic steatosis and hepatomegaly. Normal contour. No noncontrast finding. No intra or extrahepatic biliary tree dilatation. Gallbladder: Cholecystectomy Pancreas:, Parenchymal volume loss. No acute finding Spleen: Multiple punctate granulomas calcifications. No splenomegaly RETROPERITONEUM Adrenals: Normal Kidneys: Question punctate solitary left renal nonobstructing stone versus parenchymal calcification. No additional urinary system stones seen The kidney, the ureters or bladder. Unremarkable noncontrast appearance of both kidneys. Normal size and contour. No collecting system obstruction or perinephric stranding. Lymph nodes: No abdominal mesenteric, retroperitoneal or pelvic adenopathy. BOWEL AND PERITONEUM Bowel: Tiny type III hiatal hernia. Normal bowel caliber in thickness. Normal noninflamed appendix. No acute other significant gastrointestinal tract finding. Free air or fluid: None. VASCULATURE Minimal abdominal aortic catheter sclerosis. No aneurysm PELVIS: Lobulated the uterus probably on the basis of the fibroids. The lower uterine segment of fibroid may measure up to 5.7 cm. Density nearly completely calcified 4.1 cm fundal fibroid. Adnexa are within physiologic limits. Unremarkable thin-walled urinary bladder. BONES/SOFT TISSUES Mild diffuse bony demineralization. Multilevel moderate disc and endplate degenerative spondylosis. No concerning focal lytic or blastic lesion. Procedure Note Светлана Reyes MD - 01/01/2025 [facility] [address] [place], [place] [address] Exam: CT abdomen and pelvis without contrast Exam Date/Time: 01/01/2025 4:26 PM Indication: 74 female. Complaint of flank pain. Evaluation for kidneystones. Reported history of nephrolithiasis Comparison: CT abdomen pelvis 02/17/2023 Technique: Computed tomography of the abdomen and pelvis was performedwithout contrast. A dose lowering technique was used for this procedure,which may include, but is not limited to, dose reduction technique,automated exposure control, the use of iterative reconstruction, and ALARA(As Low As Reasonably Achievable) / Image Gently techniques. CT findings: LOWER CHEST Normal cardiac size. No pericardial or pleural effusion. Minimal streakylinear subsegmental atelectasis the lung bases and head couple of punctatecalcified granulomas. Limited noncontrast assessment of the soft tissues of viscera. UPPER ABDOMEN Liver and bile ducts: Mild hepatic steatosis and hepatomegaly. Normalcontour. No noncontrast finding. No intra or extrahepatic biliary treedilatation. Gallbladder: Cholecystectomy Pancreas:, Parenchymal volume loss. No acute finding Spleen: Multiple punctate granulomas calcifications. No splenomegaly RETROPERITONEUM Adrenals: Normal Kidneys: Question punctate solitary left renal nonobstructing stone versusparenchymal calcification. No additional urinary system stones seen The kidney, the ureters or bladder. Unremarkable noncontrast appearance ofboth kidneys. Normal size and contour. No collecting system obstruction orperinephric stranding. Lymph nodes: No abdominal mesenteric, retroperitoneal or pelvicadenopathy. BOWEL AND PERITONEUM Bowel: Tiny type III hiatal hernia. Normal bowel caliber in thickness.Normal noninflamed appendix. No acute other significant gastrointestinaltract finding. Free air or fluid: None. VASCULATURE Minimal abdominal aortic catheter sclerosis. No aneurysm PELVIS: Lobulated the uterus probably on the basis of the fibroids. The loweruterine segment of fibroid may measure up to 5.7 cm. Density nearlycompletely calcified 4.1 cm fundal fibroid. Adnexa are within physiologiclimits. Unremarkable thin-walled urinary bladder. BONES/SOFT TISSUES Mild diffuse bony demineralization. Multilevel moderate disc and endplatedegenerative spondylosis. No concerning focal lytic or blastic lesion. IMPRESSION: 1. No convincing acute other significant localizing abdominal pelvicprocess, findings seen to provide a potential explanation for thepatient's symptoms. 2. Equivocal punctate nonobstructing right renal solitary stone versusparenchymal calcification. No other urinary system stones identified. Nocollecting system obstruction 3. Leiomyomatous uterus. 4. Hepatic steatosis and mild hepatomegaly 5. Other nonemergent, incidental, stable and potential chronic findings asdiscussed in the report body above.. Ordered By: PRASAD SALAS Interpreted By: Светлана Reyes MD, 01/01/2025 4:56 PM Prasad Salas GENERATION ENGINEER CT Final Result * URINALYSIS (01/01/2025 3:47 PM CDT) SPECIMEN TYPE URINE CLEAN CATCH 01/01/2025 3:47 PM CDT [facility] COLOR (U) COLORLESS 01/01/2025 4:04 PM CDT [facility] TRANSPARENCY CLEAR 01/01/2025 4:04 PM CDT [facility] SPECIFIC GRAVITY (U) 1.004 1.001 - 1.030 01/01/2025 4:04 PM CDT [facility] U PH 6.5 5.0 - 9.0 01/01/2025 4:04 PM CDT [facility] LEUKOCYTES (U) NEGATIVE NEGATIVE 01/01/2025 4:04 PM CDT [facility] NITRITES NEGATIVE NEGATIVE 01/01/2025 4:04 PM CDT [facility] PROTEIN RANDOM (U) NEGATIVE <30 MG/DL 01/01/2025 4:04 PM CDT [facility] GLUCOSE (U) NORMAL NORMAL MG/DL 01/01/2025 4:04 PM CDT [facility] KETONES MG/DL (U) NEGATIVE NEGATIVE MG/DL 01/01/2025 4:04 PM CDT [facility] UROBILINOGEN NORMAL NORMAL MG/DL 01/01/2025 4:04 PM CDT [facility] BILIRUBIN (U) NEGATIVE NEGATIVE MG/DL 01/01/2025 4:04 PM CDT [facility] BLOOD (U) NEGATIVE NEGATIVE 01/01/2025 4:04 PM CDT [facility] URINE SPECIMEN OBTAINED BY CLEAN CATCH PROCEDURE / Unknown 01/01/2025 3:47 PM CDT Prasad Salas NP URINE ORDERABLES Final Result Performing Organization Address [facility] Co de Phone Number [facility] [address] [place] [address], [place] [phone] * CULTURE URINE (01/01/2025 3:47 PM CDT) SPEC DESCRIPTION URINE CLEAN CATCH 01/01/2025 3:47 PM CDT [facility] SPECIAL REQUESTS NO SPECIAL REQUEST 01/01/2025 3:47 PM CDT [facility] CULTURE RESULT NO GROWTH 2 DAYS 01/03/2025 7:21 AM CDT [facility] URINE SPECIMEN OBTAINED BY CLEAN CATCH PROCEDURE / Unknown 01/01/2025 3:47 PM CDT 01/01/2025 3:53 PM CDT Prasad Salas NP MICROBIOLOGY - GENERAL ORDERAB LES Final Result Performing Organization Address City/[facility]/ZIP Co de Phone Number [facility] [address] [place] [address], [place] [phone] * PARANEOPLASTIC AB W/RFX TITER (12/22/2024 2:16 PM CDT) TISSUE IFA OBSERVATION(S) REPORT 02/02/2025 9:29 PM CDT [facility] [place] Comment: No fluorescence observed. HU AB TITER (CSF) NEGATIVE NEGATIVE 025 9:29 PM CDT [facility] [place] LUIS ALBERTO-2 (RI) AB IFA S/P/B NEGATIVE NEGATIVE 02/02/2025 9:29 PM CDT [facility] [place] LUIS ALBERTO-3 AB IFA S/P/B NEGATIVE NEGATIVE 02/02/2025 9:29 PM CDT [facility] [place] YO AB IFA S/P/B NEGATIVE NEGATIVE 5 9:29 PM CDT [facility] [place] PURKINJE CELL CYTOPLASMIC AB TYPE 2 S/P/B NEGATIVE NEGATIVE 02/02/2025 9:29 PM CDT [facility] [place] PURKINJE CELL CYTOPLASMIC AB TYPE TR S/P/B NEGATIVE NEGATIVE 02/02/2025 9:29 PM CDT [facility] [place] AGNA/SOX1 AB IFA NEGATIVE NEGATIVE 02/03/20 25 9:29 PM CDT [facility] [place] AMPHIPHYSIN AB IFA S/P/B NEGATIVE NEGATIVE 02/02/2025 9:29 PM CDT [facility] [place] CRMP-5-IGG S/P/B NEGATIVE NEGATIVE 02/03/20 25 9:29 PM CDT [facility] [place] Comment: The absence of detectable anti-neuronal autoantibodies in this test does not exclude an idiopathic or paraneoplastic autoimmune neurological disorder. Additional testing, including cell-based assays for antibodies to surface antigens, may be indicated. Testing using both CSF and serum increases sensitivity for detection. For additional information, please refer to [email or web address] (This link is being provided for informational/educational purposes only.) This test was developed and its analytical performance characteristics have been determined by [employer] It has not been cleared or approved by the FDA. This assay has been validated pursuant to the CLIA regulations and is used for clinical purposes. ANTI-STRIATED MUSCLE AB NEGATIVE NEGATIVE 02/02/2025 9:29 PM CDT [facility] [place]QUEDAMelissaSAVANAH ALFONSO Comment: This test was developed and its analytical performance characteristics have been determined by [employer] It has not been cleared or approved by the FDA. This assay has been validated pursuant to the CLIA regulations and is used for clinical purposes. VOLTAGE-GATED CALCIUM ANDERSON P/Q AB <30 <30 pmol/L 02/02/2025 9:29 PM CDT [facility] MOSQUEDASAVANAH ALFONSO VOLTAGE GATED POTASSIUM CHANNEL AB <80 <80 pmol/L 02/02/2025 9:29 PM CDT [facility] Comment: This test was developed and its analytical performance characteristics have been determined by [employer] It has not been cleared or approved by the FDA. This assay has been validated pursuant to the CLIA regulations and is used for clinical purposes. ACHR GANGLIONIC NEURONAL AB S/P/B <55 <55 pmol/L 02/02/2025 9:29 PM CDT [facility] MOSQUEDASAVANAH ALFONSO Comment: Reference Ranges for Acetylcholine Receptor Ganglionic Antibody: Negative: <55 pmol/L Borderline: 55-160 pmol/L Positive: >160 pmol/L This test was developed and its analytical performance characteristics have been determined by [employer] It has not been cleared or approved by the FDA. This assay has been validated pursuant to the CLIA regulations and is used for clinical purposes. VOLTAGE-GATED CALCIUM ANDERSON AB <54 <54 pmol/L 02/02/2025 9:29 PM CDT [facility] MOSQUEDAMelissaSAVANAH ALFONSO Comment: This test was developed and its analytical performance characteristics have been determined by [employer] It has not been cleared or approved by the FDA. This assay has been validated pursuant to the CLIA regulations and is used for clinical purposes. ACHR BINDING AB <0.30 nmol/L 9:29 PM CDT [facility] MOSQUEDASAVANAH ALFONSO Comment: Reference Ranges for Acetylcholine Receptor Binding Antibody: Negative: < or =0.30 nmol/L Equivocal: 0.31-0.49 nmol/L Positive: > or =0.50 nmol/L Test performed by [employer] [facility] [address] [place] [address] Fuel Assembler: Yahaira Talbert MD,PHD,IVÁN Test Reported by [facility], [employer] [facility], [address] [place], [place] Brodie Vogt M.D., Ph.D., Director of Laboratories , CLIA [id number] 12/22/2024 2:16 PM CDT Elvira Pagan MD LABORATORY Final Re sult [facility] [address] [place], [place] , [place] [phone] * OUTSIDE LAB (SCAN ORDER) (12/22/2024) Only the most recent of3 resultswithin the time period is included. 12/22/2024 [facility] Scanned SCANNING Final Resu lt * LIPID PANEL (11/03/2022 8:23 AM SPORTS TEACHER) CHOLESTEROL 164 <200 MG/DL 11/03/2022 9:52 AM SPORTS TEACHER [facility] TRIGLYCERIDES 136 <150 MG/DL 11/03/2022 9:52 AM SPORTS TEACHER [facility] HDL 54 >40.0 MG/DL 11/03/2022 9:52 AM [facility] LDL (CALCULATED) 83 <100 MG/DL 11/03/19 9:52 AM [facility] NON HDL CHOLESTEROL 110 <130 MG/DL 11/03 9:52 AM [facility] CHOL/HDL RATIO 3.0 0.0 - 4.5 11/03/2022 9:52 AM [facility] VLDL CALCULATION 27 5 - 55 MG/DL 11/03/2022 9:52 AM SPORTS TEACHER [facility] LIPID INTERPRETATION 11/03/2022 9:52 AM SPORTS TEACHER [facility] Comment: NIH CONCENSUS REPORT RECOMMENDATIONS: ADULT CHILD LOW RISK: CHOLESTEROL <200 <170 TRIGLYCERIDE <150 --- HDL >=60 --- LDL <100 <110 BORDERLINE: CHOLESTEROL 200-239 170-199 TRIGLYCERIDE 150-199 --- HDL 40-59 --- LDL 100-159 110-129 HIGH RISK: CHOLESTEROL >=240 >=200 TRIGLYCERIDE >=200 --- HDL <40 --- LDL >=160 >=130 11/03/2022 8:23 AM SPORTS TEACHER Eda Nunn [facility]- LABORATORY Final Re sult [facility] [address] [place] [address], * COLONOSCOPY (05/06/2017) Documents Scanned SCANNING Final Result from Last 3 Months or Most Recently Relevant to Health Maintenance Insurance AET MEDICARE Care Teams Multi Operation Forming Machine Setter Relationship Specialty Start Date End Date Ellen Greer MD [address] [place] [address] PCP - General FAMILY PRACTICE 11/30/24
--- OUTSIDE RECORDS SUMMARY | 2025-03-12 16:58 | XMS_ITS | Encounter Summary ---
Author Organization [facility] Address [address] [place] [address] Care Team Providers Care Maintenance Data Analyst Name Role Phone Heaven Frost NP Primary Care Provider [phone] Ellen Greer MD Primary Care Provider [phone] Encounter Details Date Type Department Care Team (Late st Contact Info) Description 11/20/2024 TurboTranslationst Message Enc [facility] Family Medicine - [place] [address] [place] [address] Heaven Frost NP [address] [place] [address] Looking for B12 test results [...] Sex Assigned at Female 11/22/2024 3:50 PM FIBER DESIGNER Legal Sex Female 7:43 PM CDT Gender Identity Female 11/17/2021 3:08 PM FIBER DESIGNER Sexual Orientation Straight 11/17/2021 3: 08 PM FIBER DESIGNER Occupation Industry Job Start Date Job End Date Not on file Not on file Not on file Not on file documented as of this encounter Plan of Treatment Upcoming Encounters Date Type Department Care Team (Late st Contact Info) Description 04/09/2025 1:00 PM CDT Office Visit [facility] [address] [facility], [address] [place] [phone] Zaynab Cuadra APRN 3 [facility] [address] [place] [address] 06/25/2025 1:00 PM CDT Office Visit [facility] [address] [facility], [address] [place] [address] Elvira Pagan MD [address] [place] [address] documented as of this encounter Visit Diagnoses Not on filedocumented in this encounter Additional Health Concerns Assessment Noted Time PHQ-9 Depression Total Score: 0 06/23/20 24 3:44 PM CDT documented as of this encounter Care Teams Maintenance Data Analyst Relationship Specialty Start Date [place] [address] PCP - General NURSE PRACTITIONER 02/24/24 11/29/24 Ellen Greer MD [address] [place] [address] PCP - General FAMILY PRACTICE 11/30/24 documented as of this encounter
--- OUTSIDE RECORDS SUMMARY | 2025-03-12 16:58 | XMS_ITS | Encounter Summary ---
Author Organization [facility] Address [address] [place] [address] Care Team Providers Care Medical Services Assistant Name Role Phone Heaven Frost NP Primary Care Provider [phone] Ellen Greer MD Primary Care Provider [phone] Encounter Details Date Type Department Care Team (Late st Contact Info) Description 08/30/2024 [employer] Message Enc [facility] Medical [facility] Family Medicine - [place] [address] [place] [address] Heaven Frost NP [address] [place] [address] Follow up @3 months after [...] Sex Assigned at Female 11/22/2024 3:50 PM ROUGH CARPENTER Legal Sex Female 7:43 PM CDT Gender Identity Female 11/17/2021 3:08 PM ROUGH CARPENTER Sexual Orientation Straight 11/17/2021 3: 08 PM ROUGH CARPENTER Occupation Industry Job Start Date Job End Date Not on file Not on file Not on file Not on file documented as of this encounter Progress Notes * Anais Hagan MA - 08/31/2024 4:32 PM CST LVM to call office back tomorrow to set up an appointment. H CARPENTER documented in this encounter Plan of Treatment Upcoming Encounters Date Type Department Care Team (Late st Contact Info) Description 04/09/2025 1:00 PM CDT Office Visit [facility] [address] [facility], [address] [place] [address] Zaynab Cuadra APRN 3 [facility] [address] [place] [address] 06/25/2025 1:00 PM CDT Office Visit [facility] [address] [facility], [address] [place] [address] Elvira Pagan MD [address] [place] [address] documented as of this encounter Visit Diagnoses Not on filedocumented in this encounter Additional Health Concerns Assessment Noted Time PHQ-9 Depression Total Score: 0 06/23/20 24 3:44 PM CDT documented as of this encounter Care Teams Medical Services Assistant Relationship Specialty Start Date End Date Heaven [place] [address] PCP - General NURSE PRACTITIONER 02/24/24 11/29/24 Ellen Greer MD [address] [place] [address] PCP - General FAMILY PRACTICE 11/30/24 documented as of this encounter
--- OUTSIDE RECORDS SUMMARY | 2025-03-12 16:58 | XMS_ITS | Encounter Summary ---
Author Organization [facility] Address [address] [place] [address] Care Team Providers Care Pediatrics Hospitalist Name Role Phone Eda Nunn [facility] Primary Care Provider + Amanda Bañuelos DRILLING ENGINEER Primary Care Provider Heaven Shah DRILLING ENGINEER Primary Care Provider [phone] Ellen Greer MD Primary Care Provider [phone] Encounter Details Date Type Department Care Team (Late st Contact Info) Description 08/14/2022 SecureAutht Message Enc [facility] Medical Group Family & Internal Medicine [address] [address] Eda Nunn [facility] [address] [place] [address] Hemal's appointment Social History Tobacco [...] Sex Assigned at Female 11/22/2024 3:50 PM HANDBAG FRAMES INSPECTOR Legal Sex Female 7:43 PM CDT Gender Identity Female 11/17/2021 3:08 PM HANDBAG FRAMES INSPECTOR Sexual Orientation Straight 11/17/2021 3: 08 PM HANDBAG FRAMES INSPECTOR Occupation Industry Job Start Date Job End Date Not on file Not on file Not on file Not on file COVID-19 Exposure Response Date Recorded In the last 10 days, have willie bill been in contact with someone who was confirmed or suspected to have Coronavirus/COVID-19? No / Unsure 08/10/2022 1:23 PM HANDBAG FRAMES INSPECTOR documented as of this encounter Progress Notes * Trista Wynne - 08/14/2022 9:38 AM CST Mohsen Nagy, Yes if you would like to change his plan I would suggest calling the insurance company with the plans mentioned in this message. I apologize for any inconvenience this may have caused. Hope you have an enjoyable Thanksgiving. BAG FRAMES INSPECTOR documented in this encounter Plan of Treatment Upcoming Encounters Date Type Department Care Team (Late st Contact Info) Description 04/09/2025 1:00 PM CDT Office Visit [facility] [address] [facility], [address] [place] [phone] Zaynab Cuadra APRN 3 [facility] [address] [place] [address] 06/25/2025 1:00 PM CDT Office Visit [facility] [address] [facility], [address] [place] [phone] Elvira Pagna MD [address] [place] [address] documented as of this encounter Visit Diagnoses Not on filedocumented in this encounter Additional Health Concerns Infection Onset Date Last Indicated Resolved Time COVID-19 Rule Out 12/24/2022 12/24/2022 12/24/2022 8:37 PM CDT COVID-19 Rule Out 11/22/2023 11/22/2023 11/22/2023 2:12 AM HANDBAG FRAMES INSPECTOR COVID-19 Confirmed 11/22/2023 11/22/2023 12:32 AM CDT documented as of this encounter Care Teams Pediatrics Hospitalist Relationship Specialty Start Date End Date Eda Nunn, [facility] PCP - General Nurse Practitioner Family 08/05/21 Amanda Bañuelos, DRILLING ENGINEER PCP - General NURSE PRACTITIONER 07/20/23 02/23/24 Heaven Frost NP [address] [place] [address] PCP - General NURSE PRACTITIONER 02/24/24 11/29/24 Ellen Greer MD [address] [place] [address] PCP - General FAMILY PRACTICE 11/30/24 documented as of this encounter
--- OUTSIDE RECORDS SUMMARY | 2025-03-12 16:58 | XMS_ITS | Encounter Summary ---
Author Organization [facility] Address [facility] [place] [address] Care Team Providers Care Financial Services Auditor Name Role Phone Abiola Andrews Primary Care Provider [phone] Eda Nunn [facility] Primary Care Provider + Amanda Bañuelos VICE PRESIDENT OF FINANCE Primary Care Provider Unavaila Heaven Vega VICE PRESIDENT OF FINANCE Primary Care Provider [phone] Ellen Greer MD Primary Care Provider [phone] Encounter Details Date Type Department Care Team (Late st Contact Info) Description 12/20/2020 [employer] Message [facility] [address] [place] [address] Eda Nunn [facility] [address] [place] [address] RE: Follow Up/Update Social History [...] Sex Assigned at Female 11/22/2024 3:50 PM RELIEF DOCKING MASTER Legal Sex Female 7:43 PM CDT Gender Identity Female 11/17/2021 3:08 PM RELIEF DOCKING MASTER Sexual Orientation Straight 11/17/2021 3: 08 PM RELIEF DOCKING MASTER Occupation Industry Job Start Date Job End [...] Description 04/09/2025 1:00 PM CDT Office Visit [facility] [address] [facility], [address] [place] [address] Zaynab Cuadra APRN 3 [facility] [address] [place] [address] 06/25/2025 1:00 PM CDT Office Visit [facility] [address] [facility], [address] [place] [phone] Elvira Pagan MD [address] [place] [address] documented as of this encounter Visit Diagnoses Diagnosis Left ear pain- Primary Otalgia, unspecified documented in this encounter Additional Health Concerns Infection Onset Date Last Indicated Resolved Time COVID-19 Rule Out 12/24/2022 12/24/2022 12/24/2022 8:37 PM CDT COVID-19 Rule Out 11/22/2023 11/22/2023 11/22/2023 2:12 AM RELIEF DOCKING MASTER COVID-19 Confirmed 11/22/2023 11/22/2023 12:32 AM CDT documented as of this encounter Care Teams Financial Services Auditor Relationship Specialty Start Date End Date Abiola Andrews APNP [id number] [address] PCP - General Nurse Practitioner Family 07/12/2008/04/21 Eda Nunn FNP- [id number] [address] PCP - General Nurse Practitioner Family 08/05/21 Amanda Bañuelos, VICE PRESIDENT OF FINANCE [id number] [address] PCP - General NURSE PRACTITIONER 07/20/23 02/23/24 Heaven Frost NP [address] [place] [address] PCP - General NURSE PRACTITIONER 02/24/24 11/29/24 Ellen Greer MD [address] [place] [address] PCP - General FAMILY PRACTICE 11/30/24 documented as of this encounter
--- OUTSIDE RECORDS SUMMARY | 2025-03-12 16:58 | XMS_ITS | Encounter Summary ---
Author Organization [facility] Address [facility] [place] [address] Care Team Providers Care Piano Professor Name Role Phone Ellen Greer MD Primary Care Provider [phone] Encounter Details Date Type Department Care Team (Latest Contact Info) Description 02/27/2025 Results Follow-Up [facility] Family Medicine - [place] [address] [place] [address] Concepcion Mckeon MA COMPREHENSIVE METABOLIC PANEL, VITAMIN B-12 Social History Tobacco Use Types Packs/Day Years [...] Sex Assigned at Female 11/22/2024 3:50 PM SENIOR INTEGRATION ARCHITECT Legal Sex Female 7:43 PM CDT Gender Identity Female 11/17/2021 3:08 PM SENIOR INTEGRATION ARCHITECT Sexual Orientation Straight 11/17/2021 3: 08 PM SENIOR INTEGRATION ARCHITECT Occupation Industry Job Start Date Job End Date Not on file Not on file Not on file Not on file documented as of this encounter Plan of Treatment Upcoming Encounters Date Type Department Care Team (Late st Contact Info) Description 04/09/2025 1:00 PM CDT Office Visit [facility]ispecialty [facility] - [address], [address] [place] [address] Zaynab Cuadra APRN 3 [facility] [address] [place] [address] 06/25/2025 1:00 PM CDT Office Visit [facility] Medical Group Multispecialty Care - [facility] 3 [facility], [address] [place] [address] Elvira Pagan MD [address] [place] [address] documented as of this encounter Visit Diagnoses Not on filedocumented in this encounter Additional Health Concerns Assessment Noted Time PHQ-9 Depression Total Score: 4 12/01/19 25 1:02 PM SENIOR INTEGRATION ARCHITECT documented as of this encounter Care Teams Piano Professor Relationship Specialty Start Date End Date Ellen Greer MD [address] [place] [address] PCP - General FAMILY PRACTICE 11/30/24 documented as of this encounter
--- OUTSIDE RECORDS SUMMARY | 2025-03-12 16:58 | XMS_ITS | Encounter Summary ---
Author Organization [facility] Address Formerly [facility]6 [place] [address] Care Team Providers Care Plug Grower Name Role Phone Abiola Andrews Primary Care Provider [phone] Eda Nunn [facility] Primary Care Provider + Amanda Bañuelos VICE ADMIRAL Primary Care Provider Unavail Heaven Vega VICE ADMIRAL Primary Care Provider [phone] Ellen Greer MD Primary Care Provider [phone] Encounter Details Date Type Department Care Team (Late st Contact Info) Description 02/05/2021 Sonogenixt Message Enc [facility] Medical Group Family & Internal Medicine [address] [address] Eda Nunn [facility] [address] [place] [address] RE: Follow Up/Update Social History [...] Assigned at Female 11/22/2024 3:50 PM MANAGER TRANSIT Legal Sex Female 7:43 PM CDT Gender Identity Female 11/17/2021 3:08 PM MANAGER TRANSIT Sexual Orientation Straight 11/17/2021 3: 08 PM MANAGER TRANSIT Occupation Industry Job Start Date Job End [...] Description 04/09/2025 1:00 PM CDT [facility] [address] [facility], [address] [place] [address] Zaynab Cuadra APRN 3 [facility] [address] [place] [address] 06/25/2025 1:00 PM CDT Office Visit [facility] [address] [facility], [address] [place] [address] Elvira Pagan MD 3 [place] [address] documented as of this encounter Visit Diagnoses Not on filedocumented in this encounter Additional Health Concerns Infection Onset Date Last Indicated Resolved Time COVID-19 Rule Out 12/24/2022 12/24/2022 12/24/2022 8:37 PM CDT COVID-19 Rule Out 11/22/2023 11/22/2023 11/22/2023 2:12 AM MANAGER TRANSIT COVID-19 Confirmed 11/22/2023 11/22/2023 12:32 AM CDT documented as of this encounter Care Teams Plug Grower Relationship Specialty Start Date End Date Abiola Andrews APNP [address] [address] PCP - General Nurse Practitioner Family 07/12/2008/04/21 Eda Nunn FNP- [address] [address] PCP - General Nurse Practitioner Family 08/05/21 Amanda Bañuelos, VICE ADMIRAL [address] [address] PCP - General NURSE PRACTITIONER 07/20/23 02/23/24 Heaven Frost NP [address] [place] [address] PCP - General NURSE PRACTITIONER 02/24/24 11/29/24 Ellen Greer MD [facility]6 [place] [address] PCP - General FAMILY PRACTICE 11/30/24 documented as of this encounter
--- OUTSIDE RECORDS SUMMARY | 2025-03-12 16:58 | XMS_ITS | Encounter Summary ---
Author Organization [facility] Address Critical access hospital[address] [place] [address] Care Team Providers Care Travel Specialist Name Role Phone Ellen Greer MD Primary Care Provider [phone] Encounter Details Date Type Department Care Team (Late Contact Info) Description 01/16/2025 MWM Media Workflow Managementt Message Enc [facility] [address] [place] [address] Ellen Greer MD [address] [place] [address] [address] [address] Greer. [...] Sex Assigned at Female 11/22/2024 3:50 PM STRATEGIC PARTNERSHIP REPRESENTATIVE Legal Sex Female 7:43 PM CDT Gender Identity Female 11/17/2021 3:08 PM STRATEGIC PARTNERSHIP REPRESENTATIVE Sexual Orientation Straight 11/17/2021 3: 08 PM STRATEGIC PARTNERSHIP REPRESENTATIVE Occupation Industry Job Start Date Job End Date Not on file Not on file Not on file Not on file documented as of this encounter Plan of Treatment Upcoming Encounters Date Type Department Care Team (Late Contact Info) Description 04/09/2025 1:00 PM CDT [facility] 3 [facility], [address] [place] [address] Zaynab Cuadra APRN 3 [facility] [address] [place] [address] 06/25/2025 1:00 PM CDT [facility] 3 [facility], [address] [place] [address] Elvira Pagan MD 3 [place] [address] documented as of this encounter Visit Diagnoses Not on filedocumented in this encounter Additional Health Concerns Assessment Noted Time PHQ-9 Depression Total Score: 4 12/01/19 25 1:02 PM STRATEGIC PARTNERSHIP REPRESENTATIVE documented as of this encounter Care Teams Travel Specialist Relationship Specialty Start Date End Date Ellen Greer MD [address] [place] [address] PCP - General FAMILY PRACTICE 11/30/24 documented as of this encounter
--- OUTSIDE RECORDS SUMMARY | 2025-03-12 16:58 | XMS_ITS | Encounter Summary ---
Author Organization [facility] Address [facility] [place] [address] Care Team Providers Care Field Service Manager Name Role Phone Heaven Frost NP Primary Care Provider [phone] Ellen Greer MD Primary Care Provider [phone] Encounter Details Date Type Department Care Team (Latest Contact Info) Description 04/25/2024 MyChart Message Enc [facility] Medical Group Family Medicine - [place] [address] [place] [address] Heaven Frost NP [address] [place] [address] Potassium prescription question Social History [...] Sex Assigned at Female 11/22/2024 3:50 PM INSTALLATION COORDINATOR Legal Sex Female 7:43 PM CDT Gender Identity Female 11/17/2021 3:08 PM INSTALLATION COORDINATOR Sexual Orientation Straight 11/17/2021 3: 08 PM INSTALLATION COORDINATOR Occupation Industry Job Start Date Job End Date Not on file Not on file Not on file Not on file documented as of this encounter Plan of Treatment Upcoming Encounters Date Type Department Care Team (Late st Contact Info) Description 04/09/2025 1:00 PM CDT Office Visit [facility] 3 [facility], [address] [place] [address] Zaynab Cuadra APRN 3 [facility] [address] [place] [address] 06/25/2025 1:00 PM CDT Office Visit [facility] 3 [facility], [address] [place] [address] Elvira Pagan MD 3 [place] [address] documented as of this encounter Visit Diagnoses Not on filedocumented in this encounter Additional Health Concerns Assessment Noted Time PHQ-9 Depression Total Score: 0 07/20/20 23 11:23 AM CDT documented as of this encounter Care Teams Field Service Manager Relationship Specialty Start Date End [place] [address] PCP - General NURSE PRACTITIONER 02/24/24 11/29/24 Ellen Greer MD [address] [place] [address] PCP - General FAMILY PRACTICE 11/30/24 documented as of this encounter
--- OUTSIDE RECORDS SUMMARY | 2025-03-12 16:58 | XMS_ITS | Encounter Summary ---
Author Organization [facility] Address [facility] [place] [address] Care Team Providers Care Cob Sawyer Name Role Phone Eda Nunn [facility] Primary Care Provider + Amanda Bañuelos INSPECTOR HEATING AND REFRIGERATION Primary Care Provider Heaven Shah INSPECTOR HEATING AND REFRIGERATION Primary Care Provider [phone] Ellen Greer MD Primary Care Provider [phone] Encounter Details Date Type Department Care Team (Late st Contact Info) Description 12/18/2021 Gnarus Systemst Message Enc [facility] Medical Group Family & Internal Medicine [address] [address] Eda Nunn [facility] [address] [place] [address] Inflamed nose Social History Tobacco [...] Sex Assigned at Female 11/22/2024 3:50 PM APPEALS MANAGER Legal Sex Female 7:43 PM CDT Gender Identity Female 11/17/2021 3:08 PM APPEALS MANAGER Sexual Orientation Straight 11/17/2021 3: 08 PM APPEALS MANAGER Occupation Industry Job Start Date Job End Date Not on file Not on file Not on file Not on file documented as of this encounter Progress Notes * Nancy Gutierrez RN - 12/29/2021 1:51 PM CDT Labs faxed to [facility] at [phone]. Waiting for confirmation. * BEL Dacosta - [...] Description 04/09/2025 1:00 PM CDT Office Visit [address], [address] [place] [address] Zaynab Cuadra APRN [address] [place] [address] [address] [place] [address] 06/25/2025 1:00 PM CDT Office Visit [address] [place] [address] Elvira Pagan MD 3 [place] [address] documented as of this encounter Visit Diagnoses Diagnosis Dizziness- Primary Dizziness and giddiness documented in this encounter Additional Health Concerns Infection Onset Date Last Indicated Resolved Time COVID-19 Rule Out 12/24/2022 12/24/2022 12/24/2022 8:37 PM CDT COVID-19 Rule Out 11/22/2023 11/22/2023 11/22/2023 2:12 AM APPEALS MANAGER COVID-19 Confirmed 11/22/2023 11/22/2023 12:32 AM CDT documented as of this encounter Care Teams Cob Sawyer Relationship Specialty Start Date End Date Eda Nunn, BORING MACHINE OPERATOR [facility] PCP - General Nurse Practitioner Family 08/05/21 Amanda Bañuelos, INSPECTOR HEATING AND REFRIGERATION PCP - General NURSE PRACTITIONER 07/20/23 02/23/24 Heaven Frost NP [address] [place] [address] PCP - General NURSE PRACTITIONER 02/24/24 11/29/24 Ellen Greer MD [address] [place] [address] PCP - General FAMILY PRACTICE 11/30/24 documented as of this encounter
--- OUTSIDE RECORDS SUMMARY | 2025-03-12 16:58 | XMS_ITS | Encounter Summary ---
Author Organization [facility] Address Formerly [facility]3 [place] [address] Care Team Providers Care Employment Manager Name Role Phone Ellen Greer MD Primary Care Provider Reason for Referral * Consultation (Routine) - Authorized Specialty Diagnoses / Procedures Referred By Alen [email or web address] Referred To Contact Diagnoses Pernicious anemia Procedures OFFICE/OUTPATIENT NEW LOW MDM 30-44 MINUTES OFFICE/OUTPT VISIT,NEW,LEVL IV OFFICE/OUTPT VISIT,NEW,LEVL V OFFICE/OUTPT VISIT,EST,LEVL III OFFICE/OUTPT VISIT,EST,LEVL IV OFFICE/OUTPT VISIT,EST,LEVL V Ellen Greer MD [address] [place] [address] Phone: tel: fax: Jameel Medel MD [facility] [address] Phone: tel: fax: Referral ID Status Reason Start Date Expiration Date Visits Requested Visits Authorized [id number] Authorized Specialty Services 03/07/2025 03/07/2026 99 99 Reason for Visit * Reason Onset Date Comments Referral 03/06/2025 Encounter Details Date Type Department Care Team (Latest Contact Info) Description 03/06/2025 MyChart Message Enc [facility] Medical Group Family Medicine [address] [phone] Ellen Greer MD [address] [place] [address] Die Fitter referral needed Social History Tobacco Use Types Packs/Day Years [...] Sex Assigned at Female 11/22/2024 3:50 PM BUILDING MECHANIC Legal Sex Female 7:43 PM CDT Gender Identity Female 11/17/2021 3:08 PM BUILDING MECHANIC Sexual Orientation Straight 11/17/2021 3: 08 PM BUILDING MECHANIC Occupation Industry Job Start Date Job End Date Not on file Not on file Not on file Not on file documented as of this encounter Plan of Treatment Upcoming Encounters Date Type Department Care Team (Late st Contact Info) Description 04/09/2025 1:00 PM CDT [facility] [address], [address] [place] [address] Zaynab Cuadra APRN 3 [facility] [address] [place] [address] 06/25/2025 1:00 PM CDT [facility] - [address], [address] [place] [address] Elvira Pagan MD 3 [place] [address] Scheduled Referrals Name Type Priority Associated Diagnoses Orde r Schedule Ambulatory referral to Hematology/Oncology (OTHER) Referral Routine Pernicious anemia Ordered: 03/07/2025 documented as of this encounter Visit Diagnoses Diagnosis Pernicious anemia- Primary documented in this encounter Additional Health Concerns Assessment Noted Time PHQ-9 Depression Total Score: 4 12/01/19 25 1:02 PM BUILDING MECHANIC documented as of this encounter Care Teams Employment Manager Relationship Specialty Start Date End Date Ellen Greer MD [address] [place] [address] PCP - General FAMILY PRACTICE 11/30/24 documented as of this encounter
--- OUTSIDE RECORDS SUMMARY | 2025-03-12 16:58 | XMS_ITS | Encounter Summary ---
Author Organization [facility] Address [facility] [place] [address] Care Team Providers Care Electrical Parts Reconditioner Name Role Phone Esperanza Manrique MD Primary Care Provider [phone] Kianna Mo SODA MAKER Primary Care Provider Abiola DuvallNP Primary Care Provider [phone] Eda Nunn [facility] Primary Care Provider + Amanda Bañuelos SODA MAKER Primary Care Provider Octavioa Heaven Vega SODA MAKER Primary Care Provider [phone] Ellen Greer MD Primary Care Provider [phone] Encounter Details Date Type Department Care Team (Late st Contact Info) Description 05/31/2018 Abstract [facility] CONVERSION [address] [place] [address] , Generic Conversion, Social History Tobacco Use Types Packs/Day Years Used Date Smoking Tobacco: Former Cigarettes 1 7 3 - 1989 Smokeless Tobacco: Never Alcohol Use Standard Drinks/Week Comments No 0 (1 standard drink = 0.6 oz pur e alcohol) Comments No Sex and Gender Information Value Date Recorded Sex Assigned at Female 11/22/2024 3:50 PM CARD FIXER Legal Sex Female 7:43 PM CDT Gender Identity Female 11/17/2021 3:08 PM CARD FIXER Sexual Orientation Straight 11/17/2021 3: 08 PM CARD FIXER Occupation Industry Job Start Date Job End Date Not on file Not on file Not on file Not on file documented as of this encounter Plan of Treatment Upcoming Encounters Date Type Department Care Team (Late st Contact Info) Description 04/09/2025 1:00 PM CDT [facility] 3 [facility], [address] [place] [address] Zaynab Cuadra APRN 3 [facility] [address] [place] [address] 06/25/2025 1:00 PM CDT [facility] 3 [facility], [address] [place] [address] Elvira Pagan MD 3 [place] [address] documented as of this encounter Visit Diagnoses Not on filedocumented in this encounter Additional Health Concerns Infection Onset Date Last Indicated Resolved Time COVID-19 Rule Out 12/24/2022 12/24/2022 12/24/2022 8:37 PM CDT COVID-19 Rule Out 11/22/2023 11/22/2023 11/22/2023 2:12 AM CARD FIXER COVID-19 Confirmed 11/22/2023 11/22/2023 12:32 AM CDT documented as of this encounter Care Teams Electrical Parts Reconditioner Relationship Specialty Start Date End Date Esperanza Manrique MD PCP - General INTERNAL MEDICINE 01/21/18 09/20/18 Kianna Mo SODA MAKER PCP - General NURSE PRACTITIONER 09/21/18 07/11/20 Abiola Andrews APNP [address] [facility] [address] [place] [address] PCP - General Nurse Practitioner Family 07/12/2008/04/21 Eda Nunn FNP- [address] [address] PCP - General Nurse Practitioner Family 08/05/21 Amanda Bañuelos, SODA MAKER [address] [address] PCP - General NURSE PRACTITIONER 07/20/23 02/23/24 Heaven Frost NP [address] [place] [address] PCP - General NURSE PRACTITIONER 02/24/24 11/29/24 Ellen Greer MD [address] [place] [address] PCP - General FAMILY PRACTICE 11/30/24 documented as of this encounter
--- OUTSIDE RECORDS SUMMARY | 2025-03-12 16:58 | XMS_ITS | Encounter Summary ---
Author Organization [facility] Address [facility] [place] [address] Care Team Providers Care Engineer Internship Name Role Phone Ellen Greer MD Primary Care Provider [phone] Encounter Details Date Type Department Care Team (Late Contact Info) Description 01/16/2025 MyChart Message Enc [facility] [address] [place] [address] Ellen Greer MD [address] [place] [address] Continued Social History Tobacco Use Types [...] Sex Assigned at Female 11/22/2024 3:50 PM JANITOR HEAD Legal Sex Female 7:43 PM CDT Gender Identity Female 11/17/2021 3:08 PM JANITOR HEAD Sexual Orientation Straight 11/17/2021 3: 08 PM JANITOR HEAD Occupation Industry Job Start Date Job End Date Not on file Not on file Not on file Not on file documented as of this encounter Plan of Treatment Upcoming Encounters Date Type Department Care Team (Late Contact Info) Description 04/09/2025 1:00 PM CDT [facility] 3 [facility], [address] [place] [address] Zaynab Cuadra APRN 3 [facility] [address] [place] [address] 06/25/2025 1:00 PM CDT [facility] 3 [facility], [address] [place] [address] Elvira Pagan MD 3 [place] [address] documented as of this encounter Visit Diagnoses Not on filedocumented in this encounter Additional Health Concerns Assessment Noted Time PHQ-9 Depression Total Score: 4 12/01/19 25 1:02 PM JANITOR HEAD documented as of this encounter Care Teams Engineer Internship Relationship Specialty Start Date End Date Ellen Greer MD [address] [place] [address] PCP - General FAMILY PRACTICE 11/30/24 documented as of this encounter
--- OUTSIDE RECORDS SUMMARY | 2025-03-12 16:58 | XMS_ITS | Encounter Summary ---
Author Organization [facility] Address [facility]6 [place] [address] Care Team Providers Care Coffee Attendant Name Role Phone Heaven Frost NP Primary Care Provider [phone] Ellen Greer MD Primary Care Provider [phone] Encounter Details Date Type Department Care Team (Late st Contact Info) Description 06/19/2024 OmegaGenesis Message Enc [facility] Medical Group Family Medicine - [place] [address] [place] [address] Mychart, [facility] Provider hydrocodone Social History Tobacco Use Types [...] Sex Assigned at Female 11/22/2024 3:50 PM SANDING MACHINE BUFFER Legal Sex Female 7:43 PM CDT Gender Identity Female 11/17/2021 3:08 PM SANDING MACHINE BUFFER Sexual Orientation Straight 11/17/2021 3: 08 PM SANDING MACHINE BUFFER Occupation Industry Job Start Date Job End [...] Description 04/09/2025 1:00 PM CDT [facility] 3 [facility], [address] [place] [address] Zaynab Cuadra APRN 3 [facility] [address] [place] [address] 06/25/2025 1:00 PM CDT Office [facility] 3 [facility], [address] [place] [address] Elvira Pagan MD 3 [place] [address] documented as of this encounter Visit Diagnoses Not on filedocumented in this encounter Additional Health Concerns Assessment Noted Time PHQ-9 Depression Total Score: 0 07/20/20 23 11:23 AM CDT documented as of this encounter Care Teams Coffee Attendant Relationship Specialty Start Date End Date Heaven [place] [address] PCP - General NURSE PRACTITIONER 02/24/24 11/29/24 Ellen Greer MD [address] [place] [address] PCP - General FAMILY PRACTICE 11/30/24 documented as of this encounter
--- OUTSIDE RECORDS SUMMARY | 2025-03-12 16:58 | XMS_ITS | Encounter Summary ---
Author Organization [facility] Address [facility] [place] [address] Care Team Providers Care Technical Sales Associate Name Role Phone Heaven Frost NP Primary Care Provider [phone] Ellen Greer MD Primary Care Provider [phone] Encounter Details Date Type Department Care Team (Late st Contact Info) Description 04/24/2024 MOF Technologiest Message Enc [facility] Medical Group Family Medicine - [place] [address] [place] [address] Heaven Frost NP 5 [place] [address] Periodic paralysis testing Social History [...] Assigned at Female 11/22/2024 3:50 PM MANAGER OF DISASTER RECOVERY Legal Sex Female 7:43 PM CDT Gender Identity Female 11/17/2021 3:08 PM MANAGER OF DISASTER RECOVERY Sexual Orientation Straight 11/17/2021 3: 08 PM MANAGER OF DISASTER RECOVERY Occupation Industry Job Start Date Job End [...] PM CDT Office Visit [facility] 3 [facility], [address] [place] [address] aZynab Cuadra APRN 3 [facility] [address] [place] [address] 06/25/2025 1:00 PM CDT [facility] 3 [facility], [address] [place] [address] Elvira Pagan MD 3 [place] [address] documented as of this encounter Visit Diagnoses Not on filedocumented in this encounter Additional Health Concerns Assessment Noted Time PHQ-9 Depression Total Score: 0 07/20/20 23 11:23 AM CDT documented as of this encounter Care Teams Technical Sales Associate Relationship Specialty Start Date End Date Heaven Frost NP [address] [place] [address] PCP - General NURSE PRACTITIONER 02/24/24 11/29/24 Ellen Greer MD [address] [place] [address] PCP - General FAMILY PRACTICE 11/30/24 documented as of this encounter
[2025-03-12 17:49] LABS: Anion Gap 10 mmol/L (4-12); Blood Urea Nitrogen 10 mg/dL (7-17); Calcium 9.3 mg/dL (8.4-10.2); Carbon Dioxide 23 mmol/L (22-30); Chloride 106 mmol/L (98-107); Estimated Glomerular Filt Rate > 60; Glucose 123 mg/dL (65-110); Potassium 3.6 mmol/L (3.4-5.0); Sodium 139 mmol/L (137-145)
== END 2025-03-12 15:58 | disposition home or self-care (01) ==
PROVIDERS: Visit Provider Internal Medicine Endocrinology, Diabetes & Metabolism
DX: E87.6 Hypokalemia (principal)
CPT/HCPCS: 36415; 80048